=== PATIENT | male | born 1960 | race Caucasian/White ===

== ENCOUNTER 2017-06-04 15:32 | Inpatient (IN) | payer MEDICARE, MEDICAID ==
[~2017-06-04] VITALS: Ht 180.3 cm; Wt 115.7 kg
[~2017-06-04 15:32] MED LIST: ACETAMINOPHEN-1 EAC1 ORAL; ALEVE220 M2 PO; BACTRIM DS TAB1 EAC1 ORAL; IBUPROFEN600 MG ORAL; KEFLEX500 MG ORAL; NEURONTIN100 MG ORAL; TRAMADOL HCL50 MG ORAL
[2017-06-04] MEDS ORDERED: RISPERDAL2 MG ORAL (15:48)
[2017-06-04] MEDS ORDERED: LISINOPRIL40 MG ORAL (15:48)
[2017-06-04] MEDS ORDERED: CITALOPRAM HBR10 M1 ORAL (15:48)
[2017-06-04] MEDS ORDERED: LASIX20 M1 ORAL (15:48)
[2017-06-04] MEDS ORDERED: ADALAT20 MG ORAL (15:48)
[2017-06-04] MEDS ORDERED: JANUVIA25 MG ORAL (15:48)
[2017-06-04] MEDS ORDERED: FOLIC ACID1 MG ORAL (15:48)
--- NOTE | 2017-06-04 16:30 | Emergency Room Report ---
History of Present Illness General Chief Complaint: Skin Rash/Abscess Source: Patient, Medical Record, EMS Present Illness HPI Patient's 56-year-old male brought in by EMS after increased the foot swelling and discomfort. Patient had noticed an area to his foot which had become increasingly swollen and painful. Patient prior history of schizophrenia as well as abscesses in the past. He had been noted to have prior history of just of heart failure. He is also diabetic. Allergies: Coded Allergies: NO KNOWN ALLERGIES (Unverified Allergy, Unknown, 02/08/15) Patient History Past Medical History: see triage record Reviewed Nursing Documentation: PMH: Agreed; PSxH: Agreed Nursing Documentation-PMH Hx Hypertension: Yes Hx Diabetes: Yes Review of Systems All Other Systems: negative except mentioned in HPI Physical Exam Vital Signs Date Time Temp Pulse Resp B/P (MAP) Pulse Ox O2 Delivery O2 Flow Rate FiO2 06/04/17 15:27 97.3 84 18 153/94 97 Room Air 97.3 Sp02 EP Interpretation: reviewed, normal General Appearance: normal inspection, well appearing, no apparent distress, alert, GCS 15 Head: atraumatic ENT: normal ENT inspection, hearing grossly normal, normal voice Neck: normal inspection, full range of motion, supple, no bony tend Respiratory: normal inspection, lungs clear, normal breath sounds, no respiratory distress, no retraction, no wheezing Cardiovascular #1: regular rate, rhythm, no edema Gastrointestinal: normal inspection, normal bowel sounds, non tender, soft, no guarding, no hernia Genitourinary: no CVA tenderness Musculoskeletal: normal inspection, back normal, normal range of motion Neurologic: normal inspection, alert, oriented x3, responsive, shipping lead III-XII nml as tested, speech normal Psychiatric: normal inspection, judgement/insight normal, mood/affect normal Skin: normal inspection, normal color, no rash Medical Decision Making Diagnostic Impression: Primary Impression: Diabetic foot ulcer Additional Impression: CHF (congestive heart failure) ER Course Patient presented for lower extremity pain. Differential diagnosis included but was not limited to fracture, contusion, , vascular insufficiency, aortic aneurysm, cellulitis.Because of complexity of patient's case laboratory testing and imaging studies were ordered. The laboratory testing was unremarkable. Patient was noted to have a ulcer to the plantar aspect of his right foot consistent with a diabetic foot ulcer with infection. Dr. Sergio Felix was contacted for inpatient management. Labs Test 06/04/17 17:00 06/04/17 17:25 06/04/17 17:45 White Blood Count 10.3 K/UL (4.8-10.8) Red Blood Count 4.19 M/UL (4.70-6.10) Hemoglobin 13.0 G/DL (14.2-18.0) Hematocrit 36.4 % (42.0-52.0) Mean Corpuscular Volume 87 FL (80-99) Mean Corpuscular Hemoglobin 31.0 PG (27.0-31.0) Mean Corpuscular Hemoglobin Concent 35.6 G/DL (32.0-36.0) Red Cell Distribution Width 11.3 % (11.6-14.8) Platelet Count 177 K/UL (150-450) Mean Platelet Volume 6.0 FL (6.5-10.1) Neutrophils (%) (Auto) 69.9 % (45.0-75.0) Lymphocytes (%) (Auto) 20.5 % (20.0-45.0) Monocytes (%) (Auto) 6.2 % (1.0-10.0) Eosinophils (%) (Auto) 2.2 % (0.0-3.0) Basophils (%) (Auto) 1.2 % (0.0-2.0) Sodium Level 130 MMOL/L (136-145) Potassium Level 3.6 MMOL/L (3.5-5.1) Chloride Level 93 MMOL/L (98-107) Carbon Dioxide Level 28 MMOL/L (21-32) Anion Gap 9 mmol/L (5-15) Blood Urea Nitrogen 7 mg/dL (7-18) Creatinine 0.8 MG/DL (0.55-1.30) Estimat Glomerular Filtration Rate > 60 mL/min (>60) Glucose Level 149 MG/DL (74-106) Calcium Level 9.1 MG/DL (8.5-10.1) Phosphorus Level 3.3 MG/DL (2.5-4.9) Magnesium Level 1.4 MG/DL (1.8-2.4) Total Bilirubin 0.1 MG/DL (0.2-1.0) Aspartate Amino Transf (AST/SGOT) 12 U/L (15-37) Alanine Aminotransferase (ALT/SGPT) 15 U/L (12-78) Alkaline Phosphatase 76 U/L (46-116) Total Creatine Kinase 182 U/L (26-308) Creatine Kinase MB 1.5 NG/ML (0.0-3.6) Creatine Kinase MB Relative Index 0.8 Troponin I 0.000 ng/mL (0.000-0.056) Total Protein 7.1 G/DL (6.4-8.2) Albumin 3.4 G/DL (3.4-5.0) Globulin 3.7 g/dL Albumin/Globulin Ratio 0.9 (1.0-2.7) Urine Color Pale yellow Urine Appearance Clear Urine pH 7 (4.5-8.0) Urine Specific [place] 1.005 (1.005-1.035) Urine Protein 2+ (NEGATIVE) Urine Glucose (UA) Negative (NEGATIVE) Urine Ketones Negative (NEGATIVE) Urine Occult Blood 2+ (NEGATIVE) Urine Nitrite Negative (NEGATIVE) Urine Bilirubin Negative (NEGATIVE) Urine Urobilinogen Normal MG/DL (0.0-1.0) Urine Leukocyte Esterase Negative (NEGATIVE) Urine RBC 2-4 /HPF (0 - 0) Urine WBC 0-2 /HPF (0 - 0) Urine Squamous Epithelial Cells None /LPF (NONE/OCC) Urine Bacteria Few /HPF (NONE) Lactic Acid Level 2.00 mmol/L (0.66-2.22) EKG Diagnostic Results Rate: normal Rhythm: NSR ST Segments: no acute changes Last Vital Signs Date Time Temp Pulse Resp B/P (MAP) Pulse Ox O2 Delivery O2 Flow Rate FiO2 06/04/17 15:27 97.3 84 18 153/94 97 Room Air 97.3 Status: unchanged Condition: Stable Ascencion Washburn Jun 04, 2017 16:30
--- NOTE | 2017-06-04 16:46 | Diagnostic Imaging Report ---
Indication: Shortness of breath Technique: One view of the chest Comparison: none Findings: Lungs and pleural spaces are clear. Heart size is normal Impression: No acute process
[2017-06-04] MEDS ORDERED: Unasyn 3gm Inj ONE (17:53)
[2017-06-04] MEDS: Ampicillin/Sulbactam Sod 3 GM in NS 110 ML IV SCH ×2 (18:12→22:15)
[2017-06-04 18:15] LABS: BASOPHILS % (AUTO) 1.2 % (0.0-2.0); EOSINOPHILS % (AUTO) 2.2 % (0.0-3.0); HEMATOCRIT 36.4 % (42.0-52.0); LYMPHOCYTES % (AUTO) 20.5 % (20.0-45.0); MEAN CORPUSCULAR VOLUME 87 FL (80-99); MONOCYTES % (AUTO) 6.2 % (1.0-10.0); NEUTROPHILS % (AUTO) 69.9 % (45.0-75.0); PLATELET COUNT 177 K/UL (150-450); RED BLOOD COUNT 4.19 M/UL (4.70-6.10); RED CELL DISTRIBUTION WIDTH 11.3 % (11.6-14.8); WHITE BLOOD COUNT 10.3 K/UL (4.8-10.8)
[2017-06-04 18:17] LABS: APPEARANCE,URINE CLEAR; BILIRUBIN, URINE NEGATIVE (NEGATIVE); COLOR,URINE PALE YELLOW; GLUCOSE, URINE (UA) NEGATIVE (NEGATIVE); KETONES,URINE NEGATIVE (NEGATIVE); LEUKOCYTE ESTERASE ,URINE NEGATIVE (NEGATIVE); NITRITE,URINE NEGATIVE (NEGATIVE); PH,URINE 7 (4.5-8.0); PROTEIN,URINE 2+ (NEGATIVE); UROBILINOGEN,URINE NORMAL MG/DL (0.0-1.0)
[2017-06-04 18:22] LABS: ANION GAP 9 mmol/L (5-15); BLOOD UREA NITROGEN 7 mg/dL (7-18); CALCIUM 9.1 MG/DL (8.5-10.1); CARBON DIOXIDE 28 MMOL/L (21-32); CHLORIDE 93 MMOL/L (98-107); CREATININE 0.8 MG/DL (0.55-1.30); POTASSIUM 3.6 MMOL/L (3.5-5.1); SODIUM 130 MMOL/L (136-145)
[2017-06-04 18:35] LABS: ALANINE AMINOTRANSFERASE 15 U/L (12-78); ALBUMIN 3.4 G/DL (3.4-5.0); ALBUMIN/GLOBULIN RATIO 0.9 (1.0-2.7); ALKALINE PHOSPHATASE 76 U/L (46-116); ASPARTATE AMINO TRANSFERASE 12 U/L (15-37); BILIRUBIN,TOTAL 0.1 MG/DL (0.2-1.0); CKMB 1.5 NG/ML (0.0-3.6); CREATINE KINASE 182 U/L (26-308); PHOSPHORUS 3.3 MG/DL (2.5-4.9)
[2017-06-04] MEDS ORDERED: ATORVASTATIN CA20 MG (18:46)
[2017-06-04] MEDS ORDERED: METFORMIN HCL1000 M1 (18:46)
[2017-06-04] MEDS ORDERED: DIVALPROEX SOD250 MG (18:46)
[2017-06-04] MEDS ORDERED: RISPERIDONE3 MG (18:46)
[2017-06-04] MEDS ORDERED: NIFEDIPINE ER60 M3 (18:46)
[2017-06-04] MEDS ORDERED: GABAPENTIN300 MG (18:46)
[2017-06-04] MEDS ORDERED: JANUVIA100 MG (18:46)
[2017-06-04] MEDS ORDERED: TYLENOL EXTRA500 MG ORAL (18:54)
[2017-06-04 20:40] VITALS: BP 152/84
[2017-06-04 21:35] VITALS: BP 148/94
[2017-06-04] MEDS ORDERED: Acetaminophen 500mg (ES) tab ORAL SCH (22:45)
[2017-06-04] MEDS: Morphine Sulfate 4mg/ml Inj IVP PRN (23:39)
[2017-06-05] MEDS: D5NS 1,000 ML IV SCH ×2 (01:17→17:05)
[2017-06-05 04:00] VITALS: BP 136/80
[2017-06-05] MEDS: Ampicillin/Sulbactam Sod 3 GM in NS 110 ML IV SCH ×2 (04:15→10:41)
[2017-06-05] MEDS: NovoLOG Insulin Flexpen SUBQ SCH ×4 (06:44→20:46)
[2017-06-05 08:00] VITALS: BP 145/107
[2017-06-05 08:01] LABS: EOSINOPHILS % (AUTO) 3.3 % (0.0-3.0); HEMATOCRIT 37.9 % (42.0-52.0); HEMOGLOBIN 13.1 G/DL (14.2-18.0); LYMPHOCYTES % (AUTO) 27.5 % (20.0-45.0); MEAN CORPUSCULAR VOLUME 87 FL (80-99); MONOCYTES % (AUTO) 7.3 % (1.0-10.0); NEUTROPHILS % (AUTO) 60.9 % (45.0-75.0); PLATELET COUNT 271 K/UL (150-450); RED BLOOD COUNT 4.35 M/UL (4.70-6.10); RED CELL DISTRIBUTION WIDTH 11.5 % (11.6-14.8); WHITE BLOOD COUNT 9.1 K/UL (4.8-10.8)
[2017-06-05] MEDS: metFORMIN 500mg tab ORAL SCH ×2 (08:32→17:05)
[2017-06-05] MEDS: Lisinopril 20mg tab ORAL SCH (08:33)
[2017-06-05] MEDS: Heparin 5000 units/ml inj SUBQ SCH ×2 (08:35→20:45)
--- NOTE | 2017-06-05 08:45 | Consultation ---
DATE OF CONSULTATION: 06/05/2017 INITIAL PSYCHIATRIC EVALUATION CONSULTING PHYSICIAN: Cyndi Mcghee M.D. HISTORY OF PRESENT ILLNESS: The patient is a 56-year-old male patient admitted to [facility] secondary to diabetic foot, but I think the patient has a diagnosis of schizoaffective, bipolar type and he agreed to be restarted on his psychotropic medications and he has altered mental status and cognition has declined below baseline secondary to stress of his medical illness. That is why, his attending physician has requested daily psychiatric consultation for this patient. Upon assessment at that time, he is very confused, disorganized. His mood lability has worsened secondary to stress from his medical illness. SOCIAL HISTORY: The patient is living in a facility. Financially supported by [employer] and Medicare. SUBSTANCE ABUSE HISTORY: Denies drug and alcohol use. ALLERGIES: No known drug allergies. MEDICAL HISTORY: Schizoaffective, bipolar type, multiple psychiatric admissions. FAMILY PSYCHIATRIC HISTORY: Denies. STRENGTHS: He is moderately better. WEAKNESSES: He is impulsive. MENTAL STATUS EXAMINATION: The patient is a 56-year-old male. Appearance is disheveled. Attitude is irritable and agitated. Affect is guarded and restricted. Intellect is poor. Mood is depressed and anxious. Motor activity, psychomotor agitation. Attention span is poor. Orientation x2. Speech is pressured. Thought process is disorganized. Thought content, auditory hallucinations and paranoid delusions. Insight and judgment is poor. is poor. Description of delusions, delusions that people are following him. DIAGNOSES: 1. Schizoaffective, bipolar type. 2. Medical problems include diabetes. 3. Psychosocial stresses is financial. PLAN: Treat the patient with 10 mg daily, Depakote 250 mg at bedtime, Neurontin 300 mg a day, and Risperdal 1 mg twice a day. Provide 20 minutes of supportive therapy and encouraged him to interact appropriately with staff and other patients. Chart was reviewed and discussed with staff. The patient was seen and assessed in his room. I would like to thank you for this interesting consultation. Cyndi Mcghee M.D. [facility] [employer] JOB#: [id number] CC:
[2017-06-05] MEDS: Morphine Sulfate 4mg/ml Inj IVP PRN ×3 (08:46→20:42)
[2017-06-05] MEDS ORDERED: Citalopram 20mg Tab ORAL SCH (09:00)
[2017-06-05 09:13] LABS: ANION GAP 6 mmol/L (5-15); BLOOD UREA NITROGEN 7 mg/dL (7-18); CALCIUM 9.1 MG/DL (8.5-10.1); CARBON DIOXIDE 32 MMOL/L (21-32); CHLORIDE 98 MMOL/L (98-107); CREATININE 0.8 MG/DL (0.55-1.30); POTASSIUM 3.5 MMOL/L (3.5-5.1); SODIUM 136 MMOL/L (136-145)
[2017-06-05 12:00] VITALS: BP 137/85
--- NOTE | 2017-06-05 12:39 | Consultation ---
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 Procedure was dictated 2) D/W ID, abx per ID 3) CRP, ESR, X-ray right foot 4) Wound care ordered 5) Will follow Thank you Lorne Vincent DPM Jun 05, 2017 12:39
--- NOTE | 2017-06-05 12:57 | Consultation ---
Consult Note Consult Note ID # [id number] Kt Zavaleta MD Jun 05, 2017 12:57
[2017-06-05] MEDS: cefTRIAXone 2 GM in D5W 55 ML IVPB SCH (15:16)
--- NOTE | 2017-06-05 15:19 | Cardiac Electrophysiology PN ---
Subjective Subjective [id number] Objective Last 24 Hour Vital Signs Date Time Temp Pulse Resp B/P (MAP) Pulse Ox O2 Delivery O2 Flow Rate FiO2 06/05/17 08:33 145/107 06/05/17 08:31 93 145/107 06/05/17 08:00 97.0 93 22 145/107 98 Room Air 97.0 06/05/17 04:27 94 06/05/17 04:00 98.4 80 20 136/80 95 Room Air 98.4 06/04/17 23:47 84 06/04/17 21:35 98.4 92 20 148/94 94 Room Air 98.4 06/04/17 20:40 97.7 75 14 152/84 99 Room Air 06/04/17 20:40 97.7 75 14 152/84 99 Room Air 97.7 06/04/17 15:27 97.3 84 18 153/94 97 Room Air 97.3 Intake and Output 06/04/17 06/05/17 19:00 07:00 Intake Total 1300 ml Output Total 825 ml Balance 475 ml Intake Oral 1000 ml IV Total 300 ml Output Urine Total 825 ml # Voids 1 Laboratory Tests Test 06/04/17 17:00 06/04/17 17:25 06/04/17 17:45 06/05/17 06:30 White Blood Count 10.3 K/UL (4.8-10.8) 9.1 K/UL (4.8-10.8) Red Blood Count 4.19 M/UL (4.70-6.10) L 4.35 M/UL (4.70-6.10) L Hemoglobin 13.0 G/DL (14.2-18.0) L 13.1 G/DL (14.2-18.0) L Hematocrit 36.4 % (42.0-52.0) L 37.9 % (42.0-52.0) L Mean Corpuscular Volume 87 FL (80-99) 87 FL (80-99) Mean Corpuscular Hemoglobin 31.0 PG (27.0-31.0) 30.0 PG (27.0-31.0) Mean Corpuscular Hemoglobin Concent 35.6 G/DL (32.0-36.0) 34.4 G/DL (32.0-36.0) Red Cell Distribution Width 11.3 % (11.6-14.8) L 11.5 % (11.6-14.8) L Platelet Count 177 K/UL (150-450) 271 K/UL (150-450) # Mean Platelet Volume 6.0 FL (6.5-10.1) L 5.8 FL (6.5-10.1) L Neutrophils (%) (Auto) 69.9 % (45.0-75.0) 60.9 % (45.0-75.0) Lymphocytes (%) (Auto) 20.5 % (20.0-45.0) 27.5 % (20.0-45.0) Monocytes (%) (Auto) 6.2 % (1.0-10.0) 7.3 % (1.0-10.0) Eosinophils (%) (Auto) 2.2 % (0.0-3.0) 3.3 % (0.0-3.0) H Basophils (%) (Auto) 1.2 % (0.0-2.0) 1.0 % (0.0-2.0) Sodium Level 130 MMOL/L (136-145) L 136 MMOL/L (136-145) Potassium Level 3.6 MMOL/L (3.5-5.1) 3.5 MMOL/L (3.5-5.1) Chloride Level 93 MMOL/L (98-107) L 98 MMOL/L (98-107) Carbon Dioxide Level 28 MMOL/L (21-32) 32 MMOL/L (21-32) Anion Gap 9 mmol/L (5-15) 6 mmol/L (5-15) Blood Urea Nitrogen 7 mg/dL (7-18) 7 mg/dL (7-18) Creatinine 0.8 MG/DL (0.55-1.30) 0.8 MG/DL (0.55-1.30) Estimat Glomerular Filtration Rate > 60 mL/min (>60) > 60 mL/min (>60) Glucose Level 149 MG/DL (74-106) H 162 MG/DL (74-106) H Calcium Level 9.1 MG/DL (8.5-10.1) 9.1 MG/DL (8.5-10.1) Phosphorus Level 3.3 MG/DL (2.5-4.9) Magnesium Level 1.4 MG/DL (1.8-2.4) L Total Bilirubin 0.1 MG/DL (0.2-1.0) L Aspartate Amino Transf (AST/SGOT) 12 U/L (15-37) L Alanine Aminotransferase (ALT/SGPT) 15 U/L (12-78) Alkaline Phosphatase 76 U/L (46-116) Total Creatine Kinase 182 U/L (26-308) Creatine Kinase MB 1.5 NG/ML (0.0-3.6) Creatine Kinase MB Relative Index 0.8 Troponin I 0.000 ng/mL (0.000-0.056) Total Protein 7.1 G/DL (6.4-8.2) Albumin 3.4 G/DL (3.4-5.0) Globulin 3.7 g/dL Albumin/Globulin Ratio 0.9 (1.0-2.7) L Urine Color Pale yellow Urine Appearance Clear Urine pH 7 (4.5-8.0) Urine Specific [place] 1.005 (1.005-1.035) Urine Protein 2+ (NEGATIVE) H Urine Glucose (UA) Negative (NEGATIVE) Urine Ketones Negative (NEGATIVE) Urine Occult Blood 2+ (NEGATIVE) H Urine Nitrite Negative (NEGATIVE) Urine Bilirubin Negative (NEGATIVE) Urine Urobilinogen Normal MG/DL (0.0-1.0) Urine Leukocyte Esterase Negative (NEGATIVE) Urine RBC 2-4 /HPF (0 - 0) H Urine WBC 0-2 /HPF (0 - 0) Urine Squamous Epithelial Cells None /LPF (NONE/OCC) Urine Bacteria Few /HPF (NONE) Lactic Acid Level 2.00 mmol/L (0.66-2.22) Erythrocyte Sedimentation Rate 22 MM/HR (0-20) H C-Reactive Protein, Quantitative 3.6 mg/dL (0.00-0.90) H Microbiology Date/Time Source Procedure Growth Status 06/04/17 16:40 Foot Right Gram Stain Pending Resulted 06/04/17 16:40 Wound Culture - Preliminary Staphylococcus Aureus Resulted Keshawn Mejia MD Jun 05, 2017 15:19
--- NOTE | 2017-06-05 15:41 | Diagnostic Imaging Report ---
Indication: Pain Comparison: None Findings: 3 views of the right foot were obtained. Bulge osteopenic. Hammertoe deformities are present. No fracture or malalignment identified. Soft tissues are unremarkable. IMPRESSION: No acute injury
[2017-06-05 16:00] VITALS: BP 112/62
--- NOTE | 2017-06-05 16:36 | Cardiology Report ---
APPROVED REPORT EKG Measurement Heart [id number] [id number] Normal sinus rhythm Cannot rule out Anterior infarct, age undetermined Abnormal ECG
--- NOTE | 2017-06-05 17:45 | History and Physical Report ---
DATE OF ADMISSION: 06/04/2017 TIME: 2 p.m. INTERVENTIONAL TECHNOLOGIST: 1. Kt Zavaleta M.D. 2. Lorne Rodrigues D.P.M. 3. Cyndi Mcghee M.D.. 4. Jeffrey Hurtado M.D. CHIEF COMPLAINT: Right foot wound getting worse, edema, hyponatremia, confusion. BRIEF HISTORY: The patient is a 56-year-old male from [facility] presents with right foot plantar wound getting worse, swollen. The patient was getting weak and lethargic. The patient was sent to [place], diagnosed with the above, admitted to medical telemetry for further care. Currently, calm in bed. No complaint. No chest pain. No shortness of breath. No nausea, vomiting, or diarrhea. PAST MEDICAL HISTORY: Right foot wound, diabetes, CHF, schizophrenia, hypertension. PAST SURGICAL HISTORY: Right knee. MEDICATIONS: Include ceftriaxone, atorvastatin, Celexa, Depakote, Colace, Lasix, Neurontin, Prinivil, Glucophage, Procardia. ALLERGIES: Denies. SOCIAL HISTORY: Positive smoking. Positive alcohol. No intravenous drug use. FAMILY HISTORY: Noncontributory. PHYSICAL EXAMINATION: GENERAL: Calm in bed, oriented x2, in no acute distress. VITAL SIGNS: Temperature 97, pulse 93, respiratory rate 22, blood pressure 145/107. CARDIOVASCULAR: No murmur. LUNGS: Poor exchange. ABDOMEN: Bowel sounds positive. Nontender. Nondistended. EXTREMITIES: No cyanosis, clubbing, 1+ edema on right foot , foot dressing clean and dry. NEUROLOGIC: The patient moves all extremities, slightly weak. LABORATORY AND DIAGNOSTIC DATA: Hemoglobin 13, otherwise CBC is normal. BMP shows glucose 162, otherwise BMP is normal. Urinalysis show 2+ occult blood, 2+ protein, otherwise normal. ASSESSMENT: 1. Right foot plantar wound edema. 2. Diabetes. 3. CHF. 4. Schizophrenia. 5. Hypertension. PLAN: 1. Continue premedications. 2. Wound care. 3. OT/PT. 4. Dietary evaluation. 5. CBC and BMP in the morning. 6. Antibiotics as ordered. 7. Pain control. 8. Blood pressure control. 9. We will continue to follow the patient. Sergio Felix D.O. DR: Daysi JOB#: [id number] CC:
--- NOTE | 2017-06-05 19:15 | Consultation ---
DATE OF CONSULTATION: 06/05/2017 CARDIOLOGY CONSULTATION CONSULTING PHYSICIAN: Keshawn Mejia M.D. REFERRING PHYSICIAN: Sergio Felix D.O. REASON FOR CONSULTATION: Management of hypertension and preoperative clearance. HISTORY OF PRESENT ILLNESS: The patient is a 56-year-old gentleman with history of hypertension, diabetes, and hyperlipidemia, who was admitted to the hospital for cellulitis of the right foot and diabetic foot ulcer. 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 The patient also has limb-length discrepancy with the right leg shorter secondary to above. The patient was admitted to the hospital for diabetic foot infection. Cardiology consultation was obtained for further evaluation and management. REVIEW OF SYSTEMS: Performed and was negative other than what was mentioned in history of present illness. PAST MEDICAL HISTORY: 1. Hypertension. 2. Diabetes. 3. Diabetic foot ulcer. 4. Bipolar schizoaffective disorder. ALLERGIES: He has no known drug allergies. FAMILY HISTORY: Noncontributory. SOCIAL HISTORY: He lives in assisted living. Does not smoke or drink alcohol. He is financially supported by [employer]. PHYSICAL EXAMINATION: VITAL SIGNS: Show blood pressure 145/107, pulse 93, respirations 18, and he is afebrile. HEAD AND NECK: Showed no JVD. LUNGS: Clear. CARDIOVASCULAR: Shows regular S1 and S2 with no gallop or murmur. ABDOMEN: Soft. EXTREMITIES: Status post surgery on the right knee and right foot cellulitis. LABORATORY DATA: His labs show white count of 9.1, hemoglobin 13.1, hematocrit 38, and platelet count of 271,000. Sodium 133, potassium 3.5, BUN 7, creatinine of 0.8, and glucose 162. Troponin is negative. ASSESSMENT AND PLAN: 1. Accelerated hypertension. This is despite the fact he is on Lasix 20 mg daily, lisinopril 40 mg daily, and Procardia XL 60 mg daily. I would increase the Lasix to 40 mg daily and increase Procardia XL to 90 mg daily. Add p.r.n. clonidine. 2. Hyperlipidemia, on Lipitor. 3. Diabetes, on metformin and insulin. 4. Diabetic foot ulcer, on IV antibiotics. Further evaluation by Dr. Rodrigues. Thank you very much, Dr. Felix, for allowing me to participate in the care of this patient. Please do not hesitate to contact me for any questions regarding my evaluation. Keshawn Mejia M.D. DR: Marni JOB#: [id number] CC:
[2017-06-05 20:00] VITALS: BP 121/67
--- NOTE | 2017-06-05 20:30 | Consultation ---
DATE OF CONSULTATION: 06/05/2017 INFECTIOUS DISEASES CONSULTATION CONSULTING PHYSICIAN: Kt Zavaleta M.D. REQUESTING PHYSICIAN: Sergio Felix D.O. REASON FOR CONSULTATION: Evaluation of the patient for possible sepsis. HISTORY OF PRESENT ILLNESS: The patient is a 56-year-old male with multiple medical problems as listed below, who was brought from home to this medical center for altered level of consciousness. The patient has regained his mental status overnight. At the time of admission, the patient had white count of 10. The patient was afebrile. Infectious Diseases consultation has been requested for evaluation of patient for possible underlying sepsis that is contributing the patient's altered level of consciousness. PAST MEDICAL HISTORY: 1. History of CVA. 2. Hyperlipidemia. 3. Diabetes. ALLERGIES: No known drug allergies. SOCIAL HISTORY: The patient lives at home. FAMILY HISTORY: Unavailable. REVIEW OF SYSTEMS: HEENT: No recent change in vision or hearing. PULMONARY: The patient has chronic occasional cough. CARDIOVASCULAR: No chest pain or palpitations. GASTROINTESTINAL/ABDOMEN: No nausea or vomiting. GENITOURINARY: No dysuria. NEUROLOGIC: As mentioned above. PHYSICAL EXAMINATION: VITAL SIGNS: Temperature 98 degrees, pulse 86, respiratory rate 18, and blood pressure . HEENT: No pale conjunctivae. No icterus. NECK: No lymphadenopathy. CHEST: Clear. HEART: S1 and S2. ABDOMEN: Soft. NEUROLOGIC: Awake and alert. LABORATORY AND DIAGNOSTIC DATA: White blood cells 9.1, hemoglobin 13, and platelets 271. UA unremarkable. BUN 7 and creatinine 0.8. Liver function tests are unremarkable. Chest x-ray, [facility]. ASSESSMENT: The patient is a 56-year-old male with multiple medical problems as listed above, who came with: 1. Altered level of consciousness. 2. Normal white blood cells. 3. Afebrile. 4. By history and physical exam, there are no signs of infection that may contribute to patient's presentation. PLAN: 1. Monitor the patient off of antibiotics. 2. Monitor cultures (blood). 3. Monitor chest x-ray. 4. Monitor the patient for pertinent laboratories. 5. Based on those, we may do further recommendation. Thank you for this consultation. I will follow the patient with you during this hospitalization. Kt Zavaleta M.D. DR: Ava JOB#: [id number] CC:
[2017-06-06] VITALS: BP 117/73
[2017-06-06 04:00] VITALS: BP 122/72
[2017-06-06] MEDS: NovoLOG Insulin Flexpen SUBQ SCH ×4 (06:04→21:15)
[2017-06-06] MEDS: Morphine Sulfate 4mg/ml Inj IVP PRN ×4 (06:33→23:04)
[2017-06-06 08:00] VITALS: BP 130/72
[2017-06-06] MEDS: Lisinopril 20mg tab ORAL SCH (08:58)
[2017-06-06] MEDS: metFORMIN 500mg tab ORAL SCH ×2 (08:59→17:26)
[2017-06-06] MEDS: Heparin 5000 units/ml inj SUBQ SCH ×2 (09:02→21:17)
[2017-06-06 09:07] LABS: BASOPHILS % (AUTO) 0.7 % (0.0-2.0); EOSINOPHILS % (AUTO) 3.4 % (0.0-3.0); HEMATOCRIT 38.1 % (42.0-52.0); HEMOGLOBIN 12.9 G/DL (14.2-18.0); MEAN CORPUSCULAR VOLUME 89 FL (80-99); NEUTROPHILS % (AUTO) 67.9 % (45.0-75.0); PLATELET COUNT 297 K/UL (150-450); RED BLOOD COUNT 4.29 M/UL (4.70-6.10); RED CELL DISTRIBUTION WIDTH 11.5 % (11.6-14.8); WHITE BLOOD COUNT 10.4 K/UL (4.8-10.8)
[2017-06-06] MEDS: Dakin's 0.125% Soln (Quarter Strength) 16oz TOPIC SCH (09:16)
[2017-06-06] MEDS: Citalopram Hydrobromide 10mg Tab ORAL SCH (09:17)
[2017-06-06 09:32] LABS: ANION GAP 6 mmol/L (5-15); BLOOD UREA NITROGEN 7 mg/dL (7-18); CALCIUM 8.6 MG/DL (8.5-10.1); CARBON DIOXIDE 31 MMOL/L (21-32); CHLORIDE 98 MMOL/L (98-107); CHOLESTEROL 205 MG/DL (< 200); CREATININE 0.7 MG/DL (0.55-1.30); HDL CHOLESTEROL 37 MG/DL (40-60); POTASSIUM 3.4 MMOL/L (3.5-5.1); SODIUM 135 MMOL/L (136-145); TRIGLYCERIDES 157 MG/DL (30-150)
[2017-06-06] MEDS: D5NS 1,000 ML IV SCH (09:58)
--- NOTE | 2017-06-06 10:08 | Infectious Diseases Prog Note ---
Assessment/Plan Assessment/Plan ASSESSMENT: The patient is a 56-year-old male with Right foot plantar wound edema Wnd Cx : Staph A SP I/D by Pod , : clinically no evid of osteo as per Od Diabetes CHF Schizophrenia Hypertension PLAN: cont pt on IV Vanco and rocephin d# , upon DC will change to ( Bactrim and Keflex ) to complete the course Monitor cultures (Wnd ) Monitor chest x-ray Subjective Constitutional: Denies: no symptoms, fever, chills, fatigue, anorexia, drenching sweats, other Allergies: Coded Allergies: NO KNOWN ALLERGIES (Unverified Allergy, Unknown, 02/08/15) Objective Vital Signs Last 24 Hour Vital Signs Date Time Temp Pulse Resp B/P (MAP) Pulse Ox O2 Delivery O2 Flow Rate FiO2 06/06/17 09:00 76 130/72 06/06/17 08:58 130/72 06/06/17 08:00 97.8 76 18 130/72 97 97.8 06/06/17 04:00 70 06/06/17 04:00 97.3 87 18 122/72 97 97.3 06/06/17 00:00 97.7 78 18 117/73 94 97.7 06/05/17 23:27 71 06/05/17 20:00 98.4 82 18 121/67 94 98.4 06/05/17 19:38 97 06/05/17 16:25 79 06/05/17 16:00 98.1 80 20 112/62 95 Room Air 98.1 06/05/17 15:33 79 06/05/17 12:00 97.0 77 20 137/85 98 Room Air 97.0 Height (Feet): 5 Height (Inches): 11.00 Weight (Pounds): 250 HEENT: anicteric Respiratory/Chest: respiratory distress Cardiovascular: regular rhythm Abdomen: soft, non tender Microbiology Date/Time Source Procedure Growth Status 06/04/17 17:15 Blood Blood Culture - Preliminary NO GROWTH AFTER 24 HOURS Resulted 06/04/17 17:00 Blood Blood Culture - Preliminary NO GROWTH AFTER 24 HOURS Resulted 06/04/17 16:40 Foot Right Gram Stain - Final Resulted 06/04/17 16:40 Wound Culture - Preliminary Staphylococcus Aureus Resulted Laboratory Tests Test 06/06/17 07:00 White Blood Count 10.4 K/UL (4.8-10.8) Red Blood Count 4.29 M/UL (4.70-6.10) L Hemoglobin 12.9 G/DL (14.2-18.0) L Hematocrit 38.1 % (42.0-52.0) L Mean Corpuscular Volume 89 FL (80-99) Mean Corpuscular Hemoglobin 30.0 PG (27.0-31.0) Mean Corpuscular Hemoglobin Concent 33.8 G/DL (32.0-36.0) Red Cell Distribution Width 11.5 % (11.6-14.8) L Platelet Count 297 K/UL (150-450) Mean Platelet Volume 6.1 FL (6.5-10.1) L Neutrophils (%) (Auto) 67.9 % (45.0-75.0) Lymphocytes (%) (Auto) 21.0 % (20.0-45.0) Monocytes (%) (Auto) 7.0 % (1.0-10.0) Eosinophils (%) (Auto) 3.4 % (0.0-3.0) H Basophils (%) (Auto) 0.7 % (0.0-2.0) Sodium Level 135 MMOL/L (136-145) L Potassium Level 3.4 MMOL/L (3.5-5.1) L Chloride Level 98 MMOL/L (98-107) Carbon Dioxide Level 31 MMOL/L (21-32) Anion Gap 6 mmol/L (5-15) Blood Urea Nitrogen 7 mg/dL (7-18) Creatinine 0.7 MG/DL (0.55-1.30) Estimat Glomerular Filtration Rate > 60 mL/min (>60) Glucose Level 161 MG/DL (74-106) H Calcium Level 8.6 MG/DL (8.5-10.1) Pro-B-Type Natriuretic Peptide Pending Triglycerides Level 157 MG/DL (30-150) H Cholesterol Level 205 MG/DL (< 200) H LDL Cholesterol 133 mg/dL (<100) H HDL Cholesterol 37 MG/DL (40-60) L Cholesterol/HDL Ratio 5.5 (3.3-4.4) H Current Medications Medications (Trade) Dose Ordered Sig/Azar Route PRN Reason Start Time Stop Time Status Last Admin Dose Admin Acetaminophen (Tylenol) 650 mg Q8H PRN ORAL Fever/Headache/Mild Pain 06/05/17 01:15 07/05/17 00:00 Atorvastatin Calcium (Lipitor) 20 mg DAILY ORAL 06/05/17 09:00 07/05/17 08:59 06/06/17 08:59 Ceftriaxone Sodium 2 gm/ Dextrose 55 ml @ 110 mls/hr Q24H IVPB 06/05/17 15:00 06/12/17 14:59 06/05/17 15:16 Citalopram Hydrobromide (celeXA) 10 mg DAILY ORAL 06/06/17 10:00 07/05/17 08:59 06/06/17 09:17 Clonidine HCl (Catapres Tab) 0.1 mg Q2H PRN ORAL SBP > 170 06/05/17 15:30 07/05/17 15:29 Dextrose (Dextrose 50%) 25 ml STAT PRN IV HYPOGLYCEMIA 06/05/17 08:30 07/05/17 08:29 Dextrose (Dextrose 50%) 50 ml STAT PRN IV Hypoglycemia 06/05/17 08:30 07/05/17 00:00 Dextrose/Sodium Chloride 1,000 ml @ 60 mls/hr [id number] IV 06/05/17 01:00 07/05/17 00:59 06/06/17 09:58 Divalproex Sodium (Depakote) 250 mg DAILY ORAL 06/05/17 09:00 07/05/17 08:59 06/06/17 08:59 Folic Acid (Folate) 1 mg DAILY ORAL 06/05/17 09:00 07/05/17 08:59 06/06/17 08:59 Furosemide (Lasix) 40 mg DAILY ORAL 06/06/17 09:00 07/05/17 08:59 06/06/17 09:00 Gabapentin (Neurontin) 300 mg TID ORAL 06/05/17 09:00 07/05/17 08:59 06/06/17 08:58 Heparin Sodium (Porcine) (Heparin 5000 units/ml) 5,000 units EVERY 12 HOURS SUBQ 06/05/17 09:00 07/05/17 08:59 06/06/17 09:02 Insulin Aspart (NovoLOG) BEFORE MEALS AND HS SUBQ 06/05/17 06:30 07/05/17 06:29 06/06/17 06:04 Lisinopril (Prinivil) 40 mg DAILY ORAL 06/05/17 09:00 07/05/17 08:59 06/06/17 08:58 Metformin HCl (Glucophage) 1,000 mg BID ORAL 06/05/17 09:00 07/05/17 08:59 06/06/17 08:59 Morphine Sulfate (Morphine Sulfate) 2 mg Q4H PRN IVP for pain 06/04/17 23:15 06/11/17 23:14 06/06/17 06:33 Nifedipine (Procardia XL) 90 mg DAILY ORAL 06/06/17 09:00 07/05/17 08:59 06/06/17 09:00 Sitagliptin Phosphate (Januvia) 100 mg DAILY ORAL 06/05/17 09:00 07/05/17 08:59 06/06/17 08:58 Sodium Hypochlorite (Dakin's Quarter Strength) 1 applic DAILY TOPIC 06/06/17 09:00 07/06/17 08:59 06/06/17 09:16 Kt Zavaleta MD Jun 06, 2017 10:08
[2017-06-06] MEDS: Vancomycin 1.5 GM/D5W 250ML IVPB SCH ×2 (11:04→23:04)
[2017-06-06 12:00] VITALS: BP 139/85
--- NOTE | 2017-06-06 12:55 | General Progress Note ---
Assessment/Plan Problem List: (1) Skin abscess ICD Codes: L02.91 - Cutaneous abscess, unspecified SNOMED: 24372711 (2) Diabetic foot ulcer ICD Codes: E11.621 - Type 2 diabetes mellitus with foot ulcer; L97.509 - Non- pressure chronic ulcer of other part of unspecified foot with unspecified severity SNOMED: 433470499, 02694408 (3) Cellulitis ICD Codes: L03.90 - Cellulitis, unspecified SNOMED: 807225640 (4) CHF (congestive heart failure) ICD Codes: I50.9 - Heart failure, unspecified SNOMED: 47594568, 04369187 (5) Chronic pain ICD Codes: G89.29 - Other chronic pain SNOMED: 33539492 Status: unchanged Assessment/Plan ot pt diet wound care abx cbc bmp am Subjective Constitutional: Reports: weakness Allergies: Coded Allergies: NO KNOWN ALLERGIES (Unverified Allergy, Unknown, 02/08/15) All Systems: reviewed and negative except above Subjective sleepy calm Objective Last 24 Hour Vital Signs Date Time Temp Pulse Resp B/P (MAP) Pulse Ox O2 Delivery O2 Flow Rate FiO2 06/06/17 12:00 97.9 70 20 139/85 95 Room Air 97.9 06/06/17 12:00 81 06/06/17 09:00 76 130/72 06/06/17 08:58 130/72 06/06/17 08:00 82 06/06/17 08:00 97.8 76 18 130/72 97 97.8 06/06/17 04:00 70 06/06/17 04:00 97.3 87 18 122/72 97 97.3 06/06/17 00:00 97.7 78 18 117/73 94 97.7 06/05/17 23:27 71 06/05/17 20:00 98.4 82 18 121/67 94 98.4 06/05/17 19:38 97 06/05/17 16:25 79 06/05/17 16:00 98.1 80 20 112/62 95 Room Air 98.1 06/05/17 15:33 79 Intake and Output 06/05/17 06/06/17 19:00 07:00 Intake Total 320 ml 1600 ml Output Total 1600 ml 4000 ml Balance -1280 ml -2400 ml Intake Oral 260 ml 1600 ml IV Total 60 ml Output Urine Total 1600 ml 4000 ml Laboratory Tests 06/06/17 07:00: White Blood Count 10.4, Red Blood Count 4.29L, Hemoglobin 12.9L, Hematocrit 38.1L, Mean Corpuscular Volume 89, Mean Corpuscular Hemoglobin 30.0, Mean Corpuscular Hemoglobin Concent 33.8, Red Cell Distribution Width 11.5L, Platelet Count 297, Mean Platelet Volume 6.1L, Neutrophils (%) (Auto) 67.9, Lymphocytes (%) (Auto) 21.0, Monocytes (%) (Auto) 7.0, Eosinophils (%) (Auto) 3.4H, Basophils (%) (Auto) 0.7, Sodium Level 135L, Potassium Level 3.4L, Chloride Level 98, Carbon Dioxide Level 31, Anion Gap 6, Blood Urea Nitrogen 7, Creatinine 0.7, Estimat Glomerular Filtration Rate > 60, Glucose Level 161H, Calcium Level 8.6, Pro-B-Type Natriuretic Peptide 66, Triglycerides Level 157H, Cholesterol Level 205H, LDL Cholesterol 133H, HDL Cholesterol 37L, Cholesterol/ HDL Ratio 5.5H Height (Feet): 5 Height (Inches): 11.00 Weight (Pounds): 250 General Appearance: lethargic EENT: normal ENT inspection Neck: normal alignment Cardiovascular: normal peripheral pulses, normal rate, regular rhythm Respiratory/Chest: chest wall non-tender, lungs clear, normal breath sounds Abdomen: normal bowel sounds, non tender, soft Extremities: normal inspection Edema: no edema noted Arm (L), no edema noted Arm (R), no edema noted Leg (L), no edema noted Leg (R), no edema noted Pedal (L), no edema noted Pedal (R), no edema noted Generalized Neurologic: motor weakness Skin: normal pigmentation, warm/dry ROXANA MUSE Jun 06, 2017 12:55
--- NOTE | 2017-06-06 13:00 | Consultation ---
DATE OF CONSULTATION: 06/05/2017 INFECTIOUS DISEASE CONSULTATION CONSULTING PHYSICIAN: Kt Zavaleta M.D REFERRING PHYSICIAN: Sergio Felix D.O. REASON FOR CONSULTATION: Evaluation of the patient for right foot wound infection and antibiotic management. HISTORY OF PRESENT ILLNESS: The patient is a 56-year-old male with multiple medical problems as listed below, who came to the hospital with right foot wound with increase of erythema and tenderness. The patient was admitted to this medical center with right foot wound infection and cellulitis. Infectious Disease consultation has been requested for further evaluation of the patient and antibiotic management. PAST MEDICAL HISTORY: 1. Diabetes. 2. Hypertension. 3. History of pacemaker placement. 4. Hyperlipidemia. MEDICATIONS: IV Rocephin. ALLERGIES: No known drug allergies. SOCIAL HISTORY: Negative for alcohol or drug abuse. FAMILY HISTORY: Not contributing. REVIEW OF SYSTEMS: Ten-point review was done, except what was mentioned has been negative. PHYSICAL EXAMINATION: VITAL SIGNS: Temperature 97.8, blood pressure 130/70, pulse 86, and respiratory rate 18. HEENT: No pale conjunctivae. No icterus. NECK: No lymphadenopathy. CHEST: Clear. HEART: S1 and S2. ABDOMEN: Soft. EXTREMITY: The patient has a wound on the right dorsum of the foot. No purulent discharge. Mild erythema surrounding that and some erythema under with tenderness. NEUROLOGIC: Awake and alert. LABORATORY AND DIAGNOSTIC DATA: White blood cells 9, hemoglobin 13, and platelets 271. UA is unremarkable. BUN and creatinine are unremarkable. Blood culture and wound cultures are pending. Chest x-ray, [facility]. ASSESSMENT: The patient is a 56-year-old male with, 1. Right foot ulcer, status post incision and drainage by childcare administrator. According to him, no evidence of extension or infection to the bone and appears to be superficial wound infection. 2. Afebrile. 3. Normal white blood cells. PLAN: 1. We will continue the patient on IV Rocephin and vancomycin. 2. Monitor CBC and BMP. 3. Monitor cultures. 4. Based on the patient's clinical course and labs, we will do further recommendations. Kt Zavaleta M.D. DR: NORMAN JOB#: [id number] CC:
[2017-06-06] MEDS: cefTRIAXone 2 GM in D5W 55 ML IVPB SCH (14:35)
[2017-06-06 16:00] VITALS: BP 135/61
--- NOTE | 2017-06-06 16:43 | Cardiac Electrophysiology PN ---
Assessment/Plan Assessment/Plan 1. Accelerated hypertension. On Lasix 40 mg daily, lisinopril 40 mg daily, and Procardia XL 90 mg daily p.r.n. clonidine. 2. Hyperlipidemia, on Lipitor. 3. Diabetes, on metformin and insulin. 4. Diabetic foot ulcer, on IV antibiotics. Further evaluation by Dr. Rodrigues. CHARLEY RN Subjective Subjective Getting iv Abx. No events. No chest pain Objective Last 24 Hour Vital Signs Date Time Temp Pulse Resp B/P (MAP) Pulse Ox O2 Delivery O2 Flow Rate FiO2 06/06/17 12:00 97.9 70 20 139/85 95 Room Air 97.9 06/06/17 12:00 81 06/06/17 09:00 76 130/72 06/06/17 08:58 130/72 06/06/17 08:00 82 06/06/17 08:00 97.8 76 18 130/72 97 97.8 06/06/17 04:00 70 06/06/17 04:00 97.3 87 18 122/72 97 97.3 06/06/17 00:00 97.7 78 18 117/73 94 97.7 06/05/17 23:27 71 06/05/17 20:00 98.4 82 18 121/67 94 98.4 06/05/17 19:38 97 Intake and Output 06/05/17 06/06/17 19:00 07:00 Intake Total 320 ml 1600 ml Output Total 1600 ml 4000 ml Balance -1280 ml -2400 ml Intake Oral 260 ml 1600 ml IV Total 60 ml Output Urine Total 1600 ml 4000 ml Laboratory Tests Test 06/06/17 07:00 White Blood Count 10.4 K/UL (4.8-10.8) Red Blood Count 4.29 M/UL (4.70-6.10) L Hemoglobin 12.9 G/DL (14.2-18.0) L Hematocrit 38.1 % (42.0-52.0) L Mean Corpuscular Volume 89 FL (80-99) Mean Corpuscular Hemoglobin 30.0 PG (27.0-31.0) Mean Corpuscular Hemoglobin Concent 33.8 G/DL (32.0-36.0) Red Cell Distribution Width 11.5 % (11.6-14.8) L Platelet Count 297 K/UL (150-450) Mean Platelet Volume 6.1 FL (6.5-10.1) L Neutrophils (%) (Auto) 67.9 % (45.0-75.0) Lymphocytes (%) (Auto) 21.0 % (20.0-45.0) Monocytes (%) (Auto) 7.0 % (1.0-10.0) Eosinophils (%) (Auto) 3.4 % (0.0-3.0) H Basophils (%) (Auto) 0.7 % (0.0-2.0) Sodium Level 135 MMOL/L (136-145) L Potassium Level 3.4 MMOL/L (3.5-5.1) L Chloride Level 98 MMOL/L (98-107) Carbon Dioxide Level 31 MMOL/L (21-32) Anion Gap 6 mmol/L (5-15) Blood Urea Nitrogen 7 mg/dL (7-18) Creatinine 0.7 MG/DL (0.55-1.30) Estimat Glomerular Filtration Rate > 60 mL/min (>60) Glucose Level 161 MG/DL (74-106) H Calcium Level 8.6 MG/DL (8.5-10.1) Pro-B-Type Natriuretic Peptide 66 pg/mL (0-125) Triglycerides Level 157 MG/DL (30-150) H Cholesterol Level 205 MG/DL (< 200) H LDL Cholesterol 133 mg/dL (<100) H HDL Cholesterol 37 MG/DL (40-60) L Cholesterol/HDL Ratio 5.5 (3.3-4.4) H Microbiology Date/Time Source Procedure Growth Status 06/04/17 17:15 Blood Blood Culture - Preliminary NO GROWTH AFTER 24 HOURS Resulted 06/04/17 17:00 Blood Blood Culture - Preliminary NO GROWTH AFTER 24 HOURS Resulted 06/05/17 12:55 Foot Right Gram Stain - Final Resulted 06/05/17 12:55 Wound Culture - Preliminary Staphylococcus Aureus Resulted 06/04/17 16:40 Foot Right Gram Stain - Final Resulted 06/04/17 16:40 Wound Culture - Preliminary Staphylococcus Aureus - Mrsa Resulted Objective HEAD AND NECK: No JVD. LUNGS: Clear. CARDIOVASCULAR: Regular S1 and S2 with no gallop or murmur. ABDOMEN: Soft. EXTREMITIES: Status post surgery on the right knee. Has right foot cellulitis. Keshawn Mejia MD Jun 06, 2017 16:43
--- NOTE | 2017-06-06 18:45 | Consultation ---
DATE OF CONSULTATION: 06/05/2017 PSYCHOTHERAPY CONSULTATION PROGRESS NOTE CONSULTING PHYSICIAN: Travis May PsyD. TREATING ATTENDING PHYSICIAN: Sergio Felix D.O. HISTORY OF PRESENT ILLNESS: The patient is a 56-year-old male patient from [facility]. The patient was brought into the hospital for diabetic ulcer, congestive heart failure. The patient has history of psychosis and bipolar disorder according to his self report. The patient was referred for psychotherapeutic services due to feelings of depression, anxiety, and mood instability. When this clinician assessed this patient, the patient states that he has been feeling slightly depressed and anxious due to his medical condition being in the hospital setting. States that he does have history of mental illness and mood instability as his mood tends to fluctuate when he is under a lot of pressure. At this time, he denies suicidal or homicidal thoughts of ideation and denies any auditory or visual hallucinations. The patient has history of schizoaffective disorder. The patient was cooperative and able to communicate with this clinician. PAST MEDICAL HISTORY: Includes history of CHF, diabetes, right foot wound, hypertension. ALLERGIES: The patient has no known drug allergies. SUBSTANCE ABUSE HISTORY: The patient has history of alcohol use. Denies history of illicit substance use. Denies history of smoking cigarettes. PSYCHIATRIC HISTORY: The patient has history of schizoaffective disorder, bipolar type and had been treated with psychotropic medications in the past. SOCIAL HISTORY: The patient is a 56-year-old male patient from [facility]. Financially sustained through [employer]. MENTAL STATUS EXAMINATION: The patient is alert and oriented to person, place, and time. Mood is depressed. Affect is congruent. Thought process, disorganized. Thought content, remains slightly confused. He has poor attention and concentration. Poor insight, judgment, and impulse control. DIAGNOSES: [place] I Schizoaffective disorder, bipolar type. [place] II Deferred. [place] III Per H and P. PLAN: This clinician assessed the patient. Assessed the patient's mental status. Working on increasing compliance with treatment milieu and coping skills with an increasing insight into mental illness. Provided the patient with reality orientation and supportive psychotherapy. Continue behavioral management. This clinician has reviewed the patient's chart and discussed the treatment with treatment team. Travis May PsyD. DR: Blanka JOB#: [id number] CC:
[2017-06-06 20:00] VITALS: BP 111/68
--- NOTE | 2017-06-06 20:53 | Wound Care Consultation ---
Wound Assessment Wound Assessment : Wound Number: 1 Wound Present on Admission: Yes New Wound: No Status Change of Wound: No Wound Location Body Site Modif: right, plantar Wound Location Body Site: foot Janine Test: Does not Janine Vascular Issues: diabetic foot ulcers Wound Thickness: Full Thickness Wound Length: 2.5 Wound Width: 2.5 Wound Depth: utd Percent of Wound Bed Yellow/Wh: 100 Wound Drainage Description: Serosanguineous Wound Drainage Amount: Scant Wound Drainage Odor: None/Absent Tissue Surrounding Wound: Macerated Wound General Appearance: Draining Wound Comment #1 Left plantar 2nd metatarsal head, DM foot ulcer Recommendation -Local wound care per Dr's order -Keep clean and dry -Offload both heels -Heel protector on both heels -Optimize nutrition -Assess and f/u with MD for any changes FLYNN MCLAIN RN Jun 06, 2017 20:53
--- NOTE | 2017-06-06 22:15 | Progress Note ---
DATE: 06/06/2017 SUBJECTIVE: The patient is a 56-year-old male patient with diabetic foot ulcer, but he also has schizoaffective, bipolar type, and he has extreme mood lability worsened by the stress of his medical illness. That is why his attending has requested daily psychiatric consultation for this patient. He is having a lot of mood lability. MENTAL STATUS EXAMINATION: The patient is a 56-year-old male. Appearance is disheveled, irritable, and agitated. Affect guarded and restricted. Intellect poor. Mood depressed and anxious. Motor activity, psychomotor agitation. Attention span is poor. Orientation x2. Speech is pressured. Thought process is disorganized and illogical. Thought content, auditory hallucinations and paranoid delusions. Insight and judgment is poor. is poor. Description of delusions, delusions of people following him, changing medications, catching up on his antipsychotic medications. DIAGNOSIS: Schizoaffective, bipolar type. PLAN: Treat him with Celexa 10 mg daily, Depakote 250 mg daily, Neurontin 300 mg three times a day, and Risperdal. Provided 18-20 minutes of supportive therapy. Encouraged him to interact appropriately with staff and other patients. Chart was reviewed and discussed with staff. Seen and assessed at bedside. Cyndi Mcghee M.D. DR: PASCUAL JOB#: [id number] CC:
[2017-06-07] VITALS: BP 109/59
[2017-06-07 04:00] VITALS: BP 122/71
[2017-06-07] MEDS: D5NS 1,000 ML IV SCH ×2 (04:22→19:51)
[2017-06-07] MEDS: NovoLOG Insulin Flexpen SUBQ SCH ×4 (06:24→20:57)
[2017-06-07 08:00] VITALS: BP 117/67
--- NOTE | 2017-06-07 08:15 | Consultation ---
DATE OF CONSULTATION: 06/05/2017 CONSULTING PHYSICIAN: Kt Zavaleta M.D REASON FOR CONSULTATION: Evaluation of the patient for right foot cellulitis, rule out osteomyelitis. HISTORY OF PRESENT ILLNESS: The patient is a 56-year-old male with multiple medical problems as listed below, who came to the hospital due to right foot wound and cellulitis. The patient has been started on IV antibiotics, one dose of Unasyn was given. Infectious Disease consultation has been requested for further evaluation of the patient and antibiotic management. PAST MEDICAL HISTORY: Significant for: 1. Hyperlipidemia. 2. Diabetes. 3. Schizophrenia. ALLERGIES: No known drug allergies. SOCIAL HISTORY: Unremarkable. FAMILY HISTORY: Noncontributory. REVIEW OF SYSTEMS: HEENT: No recent change in vision or hearing. PULMONARY: No cough or shortness of breath CARDIOVASCULAR: No chest pain or palpitation. GASTROINTESTINAL/ABDOMEN: No nausea or vomiting. GENITOURINARY: No dysuria. MUSCULOSKELETAL: As mentioned above. PHYSICAL EXAMINATION: VITAL SIGNS: Temperature 97, blood pressure 104/80, pulse 86, respiratory rate 18. HEENT: No pale conjunctivae. No icterus. NECK: No lymphadenopathy. CHEST: Clear. HEART: S1 and S2. ABDOMEN: Soft. EXTREMITIES: The patient has small wound on the dorsum of the foot that was just debrided by regulated program manager. According to regulated program manager, it is superficial with no extension . The patient has mild erythema. NEUROLOGIC: Awake and alert. LABORATORY AND DIAGNOSTIC DATA: BUN 10 and creatinine 0.8. White blood cells , hemoglobin 13, platelets 107. Liver function tests are unremarkable. Chest x-ray [facility]. ASSESSMENT: The patient is a 56-year-old male with: 1. Right foot ulcer/wound infection/cellulitis. 2. Afebrile. 3. Normal white blood cells. 4. Status post debridement on 06/05/2017. PLAN: 1. We will continue the patient on IV vancomycin and Rocephin. 2. Monitor CBC. 3. Monitor BMP. 4. Monitor cultures (blood, wound). 5. Based on the patient's clinical course, labs, and cultures, we will do further recommendation. Thank you for this consultation. I will follow the patient with you during this admission. Kt Zavaleta M.D. DR: Ava JOB#: [id number] CC:
--- NOTE | 2017-06-07 08:20 | Cardiac Electrophysiology PN ---
Assessment/Plan Assessment/Plan 1. Accelerated hypertension. On Lasix 40 mg daily, lisinopril 40 mg daily, and Procardia XL 90 mg daily and p.r.n. clonidine. 2. Hyperlipidemia, on Lipitor. 3. Diabetes, on metformin and insulin. 4. Diabetic foot ulcer, on IV antibiotics. Further evaluation by Dr. Rodrigues. CHARLEY RN Subjective Subjective Getting iv Abx. No events.Comfortable. Still has foot pain. Objective Last 24 Hour Vital Signs Date Time Temp Pulse Resp B/P (MAP) Pulse Ox O2 Delivery O2 Flow Rate FiO2 06/07/17 04:00 98.1 72 19 122/71 96 Room Air 98.1 06/07/17 04:00 83 06/07/17 00:00 97.7 69 18 109/59 97 Room Air 97.7 06/07/17 00:00 69 06/06/17 20:00 69 06/06/17 20:00 96.5 75 19 111/68 98 Room Air 96.5 06/06/17 16:00 71 06/06/17 16:00 97.2 72 20 135/61 96 Room Air 97.2 06/06/17 12:00 97.9 70 20 139/85 95 Room Air 97.9 06/06/17 12:00 81 06/06/17 09:00 76 130/72 06/06/17 08:58 130/72 Intake and Output 06/06/17 06/07/17 19:00 07:00 Intake Total 1725 ml 1005 ml Output Total 2550 ml Balance -825 ml 1005 ml Intake Oral 600 ml IV Total 1125 ml 1005 ml Output Urine Total 2550 ml # Voids 1 Microbiology Date/Time Source Procedure Growth Status 06/04/17 17:15 Blood Blood Culture - Preliminary NO GROWTH AFTER 48 HOURS Resulted 06/04/17 17:00 Blood Blood Culture - Preliminary NO GROWTH AFTER 48 HOURS Resulted 06/05/17 12:55 Foot Right Gram Stain - Final Resulted 06/05/17 12:55 Wound Culture - Preliminary Staphylococcus Aureus Resulted 06/04/17 16:40 Foot Right Gram Stain - Final Resulted 06/04/17 16:40 Wound Culture - Preliminary Staphylococcus Aureus - Mrsa Resulted Objective HEAD AND NECK: No JVD. LUNGS: Clear. CARDIOVASCULAR: Regular S1 and S2 with no gallop or murmur. ABDOMEN: Soft. EXTREMITIES: [place] right knee. Right foot cellulitis. Keshawn Mejia MD Jun 07, 2017 08:20
[2017-06-07] MEDS: Citalopram Hydrobromide 10mg Tab ORAL SCH (09:08)
[2017-06-07] MEDS: metFORMIN 500mg tab ORAL SCH ×2 (09:08→17:21)
[2017-06-07] MEDS: Lisinopril 20mg tab ORAL SCH (09:10)
[2017-06-07] MEDS: Morphine Sulfate 4mg/ml Inj IVP PRN ×4 (09:11→23:03)
[2017-06-07] MEDS: Heparin 5000 units/ml inj SUBQ SCH ×2 (09:16→20:56)
[2017-06-07] MEDS: Dakin's 0.125% Soln (Quarter Strength) 16oz TOPIC SCH (09:16)
[2017-06-07 10:08] LABS: BASOPHILS % (AUTO) 0.7 % (0.0-2.0); EOSINOPHILS % (AUTO) 3.8 % (0.0-3.0); HEMATOCRIT 39.7 % (42.0-52.0); HEMOGLOBIN 13.6 G/DL (14.2-18.0); LYMPHOCYTES % (AUTO) 18.2 % (20.0-45.0); MEAN CORPUSCULAR VOLUME 89 FL (80-99); MONOCYTES % (AUTO) 5.8 % (1.0-10.0); NEUTROPHILS % (AUTO) 71.6 % (45.0-75.0); PLATELET COUNT 310 K/UL (150-450); RED BLOOD COUNT 4.48 M/UL (4.70-6.10); RED CELL DISTRIBUTION WIDTH 11.7 % (11.6-14.8); WHITE BLOOD COUNT 10.3 K/UL (4.8-10.8)
[2017-06-07 10:16] LABS: ANION GAP 7 mmol/L (5-15); BLOOD UREA NITROGEN 9 mg/dL (7-18); CALCIUM 8.5 MG/DL (8.5-10.1); CARBON DIOXIDE 29 MMOL/L (21-32); CHLORIDE 99 MMOL/L (98-107); CREATININE 0.9 MG/DL (0.55-1.30); POTASSIUM 3.9 MMOL/L (3.5-5.1); SODIUM 135 MMOL/L (136-145)
[2017-06-07] MEDS: Vancomycin 1.5 GM/D5W 250ML IVPB SCH ×2 (10:42→22:29)
[2017-06-07 12:00] VITALS: BP 117/72
--- NOTE | 2017-06-07 12:51 | General Progress Note ---
Assessment/Plan Problem List: (1) Skin abscess ICD Codes: L02.91 - Cutaneous abscess, unspecified SNOMED: 41326149 (2) Diabetic foot ulcer ICD Codes: E11.621 - Type 2 diabetes mellitus with foot ulcer; L97.509 - Non- pressure chronic ulcer of other part of unspecified foot with unspecified severity SNOMED: 501732230, 86272451 (3) Cellulitis ICD Codes: L03.90 - Cellulitis, unspecified SNOMED: 202444063 (4) CHF (congestive heart failure) ICD Codes: I50.9 - Heart failure, unspecified SNOMED: 21735278, 72782145 (5) Chronic pain ICD Codes: G89.29 - Other chronic pain SNOMED: 42375714 Status: unchanged Assessment/Plan ot pt diet wound care abx cbc bmp am dc plan w hh Subjective Constitutional: Reports: weakness Allergies: Coded Allergies: NO KNOWN ALLERGIES (Unverified Allergy, Unknown, 02/08/15) All Systems: reviewed and negative except above Subjective sleepy calm Objective Last 24 Hour Vital Signs Date Time Temp Pulse Resp B/P (MAP) Pulse Ox O2 Delivery O2 Flow Rate FiO2 06/07/17 12:00 97.2 80 20 117/72 95 Room Air 97.2 06/07/17 09:10 117/67 06/07/17 09:09 78 117/67 06/07/17 08:00 69 06/07/17 08:00 97.7 78 20 117/67 95 Room Air 97.7 06/07/17 04:00 98.1 72 19 122/71 96 Room Air 98.1 06/07/17 04:00 83 06/07/17 00:00 97.7 69 18 109/59 97 Room Air 97.7 06/07/17 00:00 69 06/06/17 20:00 69 06/06/17 20:00 96.5 75 19 111/68 98 Room Air 96.5 06/06/17 16:00 71 06/06/17 16:00 97.2 72 20 135/61 96 Room Air 97.2 Intake and Output 06/06/17 06/07/17 19:00 07:00 Intake Total 1725 ml 1005 ml Output Total 2550 ml Balance -825 ml 1005 ml Intake Oral 600 ml IV Total 1125 ml 1005 ml Output Urine Total 2550 ml # Voids 1 Laboratory Tests 06/07/17 09:35: White Blood Count 10.3, Red Blood Count 4.48L, Hemoglobin 13.6L, Hematocrit 39.7L, Mean Corpuscular Volume 89, Mean Corpuscular Hemoglobin 30.3, Mean Corpuscular Hemoglobin Concent 34.2, Red Cell Distribution Width 11.7, Platelet Count 310, Mean Platelet Volume 5.8L, Neutrophils (%) (Auto) 71.6, Lymphocytes ( %) (Auto) 18.2L, Monocytes (%) (Auto) 5.8, Eosinophils (%) (Auto) 3.8H, Basophils (%) (Auto) 0.7, Sodium Level 135L, Potassium Level 3.9, Chloride Level 99, Carbon Dioxide Level 29, Anion Gap 7, Blood Urea Nitrogen 9, Creatinine 0.9, Estimat Glomerular Filtration Rate > 60, Glucose Level 183H, Calcium Level 8.5 Height (Feet): 5 Height (Inches): 11.00 Weight (Pounds): 250 General Appearance: lethargic EENT: normal ENT inspection Neck: normal alignment Cardiovascular: normal peripheral pulses, normal rate, regular rhythm Respiratory/Chest: chest wall non-tender, lungs clear, normal breath sounds Abdomen: normal bowel sounds, non tender, soft Extremities: normal inspection Edema: 1+ Arm (L), 1+ Arm (R), 1+ Leg (L), 1+ Leg (R), 1+ Pedal (L), 1+ Pedal ( R), 1+ Generalized Neurologic: responsive, motor weakness Skin: normal pigmentation, warm/dry ROXANA MUSE Jun 07, 2017 12:51
[2017-06-07] MEDS: cefTRIAXone 2 GM in D5W 55 ML IVPB SCH (15:06)
[2017-06-07 16:00] VITALS: BP 108/65
--- NOTE | 2017-06-07 18:48 | Infectious Diseases Prog Note ---
Assessment/Plan Assessment/Plan ASSESSMENT: The patient is a 56-year-old male with Right foot plantar wound edema Wnd Cx : MRSA SP I/D by Pod , : clinically no evid of osteo as per Od Diabetes CHF Schizophrenia Hypertension PLAN: cont pt on IV Vanco d# 3 / 7 , upon DC will change to ( Bactrim ) to complete the course ,DC and rocephin D#3 Monitor cultures (Wnd ) Monitor chest x-ray Subjective Constitutional: Denies: no symptoms, fever, chills, fatigue, anorexia, drenching sweats, other Allergies: Coded Allergies: NO KNOWN ALLERGIES (Unverified Allergy, Unknown, 02/08/15) Objective Vital Signs Last 24 Hour Vital Signs Date Time Temp Pulse Resp B/P (MAP) Pulse Ox O2 Delivery O2 Flow Rate FiO2 06/07/17 16:00 97.9 86 20 108/65 94 Room Air 97.9 06/07/17 16:00 75 06/07/17 12:00 69 06/07/17 12:00 97.2 80 20 117/72 95 Room Air 97.2 06/07/17 09:10 117/67 06/07/17 09:09 78 117/67 06/07/17 08:00 69 06/07/17 08:00 97.7 78 20 117/67 95 Room Air 97.7 06/07/17 04:00 98.1 72 19 122/71 96 Room Air 98.1 06/07/17 04:00 83 06/07/17 00:00 97.7 69 18 109/59 97 Room Air 97.7 06/07/17 00:00 69 06/06/17 20:00 69 06/06/17 20:00 96.5 75 19 111/68 98 Room Air 96.5 Height (Feet): 5 Height (Inches): 11.00 Weight (Pounds): 250 HEENT: anicteric Respiratory/Chest: no respiratory distress Cardiovascular: regularly irregular Abdomen: no organomegaly Microbiology Date/Time Source Procedure Growth Status 06/04/17 20:20 Nasal Nares MRSA Culture - Final NO METHICILLIN RESISTANT STAPH AUREUS... Complete 06/05/17 12:55 Foot Right Gram Stain - Final Resulted 06/05/17 12:55 Wound Culture - Preliminary Staphylococcus Aureus - Mrsa Usual Skin Alyce Resulted 06/04/17 20:20 Rectum VRE Culture - Final NO VANCOMYCIN RESISTANT ENTEROCOCCUS ... Complete Laboratory Tests Test 06/07/17 09:35 White Blood Count 10.3 K/UL (4.8-10.8) Red Blood Count 4.48 M/UL (4.70-6.10) L Hemoglobin 13.6 G/DL (14.2-18.0) L Hematocrit 39.7 % (42.0-52.0) L Mean Corpuscular Volume 89 FL (80-99) Mean Corpuscular Hemoglobin 30.3 PG (27.0-31.0) Mean Corpuscular Hemoglobin Concent 34.2 G/DL (32.0-36.0) Red Cell Distribution Width 11.7 % (11.6-14.8) Platelet Count 310 K/UL (150-450) Mean Platelet Volume 5.8 FL (6.5-10.1) L Neutrophils (%) (Auto) 71.6 % (45.0-75.0) Lymphocytes (%) (Auto) 18.2 % (20.0-45.0) L Monocytes (%) (Auto) 5.8 % (1.0-10.0) Eosinophils (%) (Auto) 3.8 % (0.0-3.0) H Basophils (%) (Auto) 0.7 % (0.0-2.0) Sodium Level 135 MMOL/L (136-145) L Potassium Level 3.9 MMOL/L (3.5-5.1) Chloride Level 99 MMOL/L (98-107) Carbon Dioxide Level 29 MMOL/L (21-32) Anion Gap 7 mmol/L (5-15) Blood Urea Nitrogen 9 mg/dL (7-18) Creatinine 0.9 MG/DL (0.55-1.30) Estimat Glomerular Filtration Rate > 60 mL/min (>60) Glucose Level 183 MG/DL (74-106) H Calcium Level 8.5 MG/DL (8.5-10.1) Current Medications Medications (Trade) Dose Ordered Sig/Azar Route PRN Reason Start Time Stop Time Status Last Admin Dose Admin Acetaminophen (Tylenol) 650 mg Q8H PRN ORAL Fever/Headache/Mild Pain 06/05/17 01:15 07/05/17 00:00 Atorvastatin Calcium (Lipitor) 20 mg DAILY ORAL 06/05/17 09:00 07/05/17 08:59 06/07/17 09:08 Ceftriaxone Sodium 2 gm/ Dextrose 55 ml @ 110 mls/hr Q24H IVPB 06/05/17 15:00 06/12/17 14:59 06/07/17 15:06 Citalopram Hydrobromide (celeXA) 10 mg DAILY ORAL 06/06/17 10:00 07/05/17 08:59 06/07/17 09:08 Clonidine HCl (Catapres Tab) 0.1 mg Q2H PRN ORAL SBP > 170 06/05/17 15:30 07/05/17 15:29 Dextrose (Dextrose 50%) 25 ml STAT PRN IV HYPOGLYCEMIA 06/05/17 08:30 07/05/17 08:29 Dextrose (Dextrose 50%) 50 ml STAT PRN IV Hypoglycemia 06/05/17 08:30 07/05/17 00:00 Dextrose/Sodium Chloride 1,000 ml @ 60 mls/hr [id number] IV 06/05/17 01:00 07/05/17 00:59 06/07/17 04:22 Divalproex Sodium (Depakote) 250 mg DAILY ORAL 06/05/17 09:00 07/05/17 08:59 06/07/17 09:09 Folic Acid (Folate) 1 mg DAILY ORAL 06/05/17 09:00 07/05/17 08:59 06/07/17 09:09 Furosemide (Lasix) 40 mg DAILY ORAL 06/06/17 09:00 07/05/17 08:59 06/07/17 09:09 Gabapentin (Neurontin) 300 mg TID ORAL 06/05/17 09:00 07/05/17 08:59 06/07/17 17:19 Heparin Sodium (Porcine) (Heparin 5000 units/ml) 5,000 units EVERY 12 HOURS SUBQ 06/05/17 09:00 07/05/17 08:59 06/07/17 09:16 Insulin Aspart (NovoLOG) BEFORE MEALS AND HS SUBQ 06/05/17 06:30 07/05/17 06:29 06/07/17 16:39 Lisinopril (Prinivil) 40 mg DAILY ORAL 06/05/17 09:00 07/05/17 08:59 06/07/17 09:10 Metformin HCl (Glucophage) 1,000 mg BID ORAL 06/05/17 09:00 07/05/17 08:59 06/07/17 17:21 Morphine Sulfate (Morphine Sulfate) 2 mg Q4H PRN IVP for pain 06/04/17 23:15 06/11/17 23:14 06/07/17 18:36 Nifedipine (Procardia XL) 90 mg DAILY ORAL 06/06/17 09:00 07/05/17 08:59 06/07/17 09:09 Sitagliptin Phosphate (Januvia) 100 mg DAILY ORAL 06/05/17 09:00 07/05/17 08:59 06/07/17 09:08 Sodium Hypochlorite (Dakin's Quarter Strength) 1 applic DAILY TOPIC 06/06/17 09:00 07/06/17 08:59 06/07/17 09:16 Vancomycin HCl (Vanco rx to dose) 1 ea DAILY PRN MISC Per rx protocol 06/06/17 10:30 07/06/17 10:29 Vancomycin HCl/ Dextrose 250 ml @ 125 mls/hr Q12HR@1100,2300 IVPB 06/06/17 11:00 06/11/17 10:59 06/07/17 10:42 Kt Zavaleta MD Jun 07, 2017 18:48
[2017-06-07 20:00] VITALS: BP 90/54
--- NOTE | 2017-06-07 22:30 | Progress Note ---
DATE: 06/06/2017 PSYCHOTHERAPY CONSULTATION PROGRESS NOTE TREATING ATTENDING PHYSICIAN: Sergio Felix D.O. SUBJECTIVE: This is a 56-year-old male patient from [facility]. The patient has a history of schizoaffective disorder. The patient's mood continues to remain irritable and labile. The patient states that he has been feeling helpless due to being in the hospital, wants to return back to home as soon as possible. He has been feeling helpless and hopeless; however, is redirectable and is cooperative. PLAN: This clinician assessed the patient. Assessed the patient's mental status. Provided the patient with reality orientation and provided the patient with supportive psychotherapy. Encouraging the patient to participate in treatment milieu. Continue with behavioral management. . This clinician has reviewed the patient's chart and discussed the treatment with treatment team. Travis May PsyD. DR: Ava JOB#: [id number] CC:
--- NOTE | 2017-06-07 23:45 | Consultation ---
DATE OF CONSULTATION: 06/07/2017 CONSULTING PHYSICIAN: Cyndi Mcghee M.D. HISTORY OF PRESENT ILLNESS: The patient is a 56-year-old male patient with diabetic foot ulcer. This patient has some confusion, disorganized thought process, and mood lability worsened by stress of his medical illness. That is why, his attending physician has requested daily psychiatric consultation. MENTAL STATUS EXAMINATION: This is a 56-year-old male. Appearance is disheveled, irritable and agitated. Affect is guarded and restricted. Intellect poor. Mood is depressed and anxious. Motor activity, psychomotor agitation. Attention span is poor. Orientation x2. Speech is pressured. Thought process, disorganized and illogical. Thought content, no auditory hallucinations or paranoid delusions. Insight and judgment is poor. poor. Description of delusions, delusions of people following him, changing medication. DIAGNOSIS: Schizoaffective, bipolar type. PLAN: Risperdal 0.5 mg at bedtime, Celexa 10 mg daily, Depakote 250 mg daily, and Neurontin 300 mg three times a day. Provide 18 to 20 minutes of supportive therapy. Seen and assessed at bedside. Chart reviewed and discussed with the staff. 18 to 20 minutes of supportive therapy provided. Cyndi Mcghee M.D. DR: JIAN JOB#: [id number] CC:
[2017-06-08] VITALS: BP 113/66
[2017-06-08 04:00] VITALS: BP 106/60
[2017-06-08] MEDS: Morphine Sulfate 4mg/ml Inj IVP PRN ×4 (06:19→20:39)
[2017-06-08] MEDS: NovoLOG Insulin Flexpen SUBQ SCH ×4 (06:38→20:36)
[2017-06-08 08:00] VITALS: BP 123/77
[2017-06-08] MEDS: metFORMIN 500mg tab ORAL SCH ×2 (08:47→17:26)
[2017-06-08] MEDS: Citalopram Hydrobromide 10mg Tab ORAL SCH (08:48)
[2017-06-08] MEDS: Lisinopril 20mg tab ORAL SCH (08:48)
[2017-06-08 08:54] LABS: ANION GAP 6 mmol/L (5-15); BLOOD UREA NITROGEN 10 mg/dL (7-18); CALCIUM 8.5 MG/DL (8.5-10.1); CARBON DIOXIDE 29 MMOL/L (21-32); CHLORIDE 99 MMOL/L (98-107); CREATININE 0.9 MG/DL (0.55-1.30); POTASSIUM 3.7 MMOL/L (3.5-5.1); SODIUM 134 MMOL/L (136-145)
[2017-06-08 08:55] LABS: BASOPHILS % (AUTO) 1.2 % (0.0-2.0); EOSINOPHILS % (AUTO) 5.1 % (0.0-3.0); HEMATOCRIT 39.8 % (42.0-52.0); HEMOGLOBIN 13.7 G/DL (14.2-18.0); LYMPHOCYTES % (AUTO) 22.1 % (20.0-45.0); MEAN CORPUSCULAR VOLUME 89 FL (80-99); MONOCYTES % (AUTO) 7.2 % (1.0-10.0); NEUTROPHILS % (AUTO) 64.4 % (45.0-75.0); PLATELET COUNT 295 K/UL (150-450); RED BLOOD COUNT 4.47 M/UL (4.70-6.10); RED CELL DISTRIBUTION WIDTH 11.6 % (11.6-14.8); WHITE BLOOD COUNT 8.2 K/UL (4.8-10.8)
[2017-06-08] MEDS: Dakin's 0.125% Soln (Quarter Strength) 16oz TOPIC SCH (08:55)
[2017-06-08] MEDS: Heparin 5000 units/ml inj SUBQ SCH ×2 (08:55→20:37)
--- NOTE | 2017-06-08 09:57 | General Progress Note ---
Assessment/Plan Problem List: (1) Skin abscess ICD Codes: L02.91 - Cutaneous abscess, unspecified SNOMED: 27539352 (2) Diabetic foot ulcer ICD Codes: E11.621 - Type 2 diabetes mellitus with foot ulcer; L97.509 - Non- pressure chronic ulcer of other part of unspecified foot with unspecified severity SNOMED: 561927333, 66779782 (3) Cellulitis ICD Codes: L03.90 - Cellulitis, unspecified SNOMED: 703393467 (4) CHF (congestive heart failure) ICD Codes: I50.9 - Heart failure, unspecified SNOMED: 75573238, 13402376 (5) Chronic pain ICD Codes: G89.29 - Other chronic pain SNOMED: 43978712 Status: stable, progressing, tolerating diet Assessment/Plan ot pt diet wound care abx cbc bmp am dc plan w hh Subjective Constitutional: Reports: weakness Allergies: Coded Allergies: NO KNOWN ALLERGIES (Unverified Allergy, Unknown, 02/08/15) All Systems: reviewed and negative except above Subjective sleepy calm Objective Last 24 Hour Vital Signs Date Time Temp Pulse Resp B/P (MAP) Pulse Ox O2 Delivery O2 Flow Rate FiO2 06/08/17 08:48 123/77 06/08/17 08:47 74 123/77 06/08/17 08:00 97.0 74 20 123/77 95 Room Air 97.0 06/08/17 04:00 75 06/08/17 04:00 97.7 74 20 106/60 93 Room Air 97.7 06/08/17 01:14 70 06/08/17 00:00 97.7 74 20 113/66 93 Room Air 97.7 06/07/17 20:00 98.1 74 20 90/54 93 Room Air 98.1 06/07/17 20:00 75 06/07/17 16:00 97.9 86 20 108/65 94 Room Air 97.9 06/07/17 16:00 75 06/07/17 12:00 69 06/07/17 12:00 97.2 80 20 117/72 95 Room Air 97.2 Intake and Output 06/07/17 06/08/17 19:00 07:00 Intake Total 1985 ml 910 ml Output Total 1600 ml 1160 ml Balance 385 ml -250 ml Intake Oral 960 ml IV Total 1025 ml 910 ml Output Urine Total 1600 ml 1160 ml # Voids 1 Laboratory Tests 06/07/17 21:50: Vancomycin Level Trough 11.5 06/08/17 08:10: White Blood Count 8.2, Red Blood Count 4.47L, Hemoglobin 13.7L, Hematocrit 39.8L , Mean Corpuscular Volume 89, Mean Corpuscular Hemoglobin 30.6, Mean Corpuscular Hemoglobin Concent 34.4, Red Cell Distribution Width 11.6, Platelet Count 295, Mean Platelet Volume 5.8L, Neutrophils (%) (Auto) 64.4, Lymphocytes ( %) (Auto) 22.1, Monocytes (%) (Auto) 7.2, Eosinophils (%) (Auto) 5.1H, Basophils (%) (Auto) 1.2, Sodium Level 134L, Potassium Level 3.7, Chloride Level 99, Carbon Dioxide Level 29, Anion Gap 6, Blood Urea Nitrogen 10, Creatinine 0.9, Estimat Glomerular Filtration Rate > 60, Glucose Level 183H, Calcium Level 8.5 Height (Feet): 5 Height (Inches): 11.00 Weight (Pounds): 250 General Appearance: alert EENT: normal ENT inspection Neck: normal alignment Cardiovascular: normal peripheral pulses, normal rate, regular rhythm Respiratory/Chest: chest wall non-tender, lungs clear, normal breath sounds Abdomen: normal bowel sounds, non tender, soft Extremities: normal inspection Edema: 1+ Arm (L), 1+ Arm (R), 1+ Leg (L), 1+ Leg (R), 1+ Pedal (L), 1+ Pedal ( R), 1+ Generalized Edema: trace edema Neurologic: responsive, motor weakness Skin: normal pigmentation, warm/dry ROXANA MUSE Jun 08, 2017 09:57
[2017-06-08] MEDS: Vancomycin 1.5 GM/D5W 250ML IVPB SCH ×2 (10:48→23:41)
[2017-06-08 12:00] VITALS: BP 121/71
[2017-06-08] MEDS: D5NS 1,000 ML IV SCH (12:14)
--- NOTE | 2017-06-08 15:33 | Cardiac Electrophysiology PN ---
Assessment/Plan Assessment/Plan 1. Accelerated hypertension. On Lasix 40 mg daily, lisinopril 40 mg daily, and Procardia XL 90 mg daily and p.r.n. clonidine. 2. Hyperlipidemia, on Lipitor. 3. Diabetes, on metformin and insulin. 4. Diabetic foot ulcer, on IV antibiotics. Further evaluation by Dr. Rodrigues. CHARLEY ROK to DC from cardiac stand point Subjective Subjective Getting iv Abx. No events.Comfortable. DC planning in progress Objective Last 24 Hour Vital Signs Date Time Temp Pulse Resp B/P (MAP) Pulse Ox O2 Delivery O2 Flow Rate FiO2 06/08/17 12:00 72 06/08/17 12:00 97.7 76 20 121/71 97 Room Air 97.7 06/08/17 08:48 123/77 06/08/17 08:47 74 123/77 06/08/17 08:00 97.0 74 20 123/77 95 Room Air 97.0 06/08/17 08:00 72 06/08/17 04:00 75 06/08/17 04:00 97.7 74 20 106/60 93 Room Air 97.7 06/08/17 01:14 70 06/08/17 00:00 97.7 74 20 113/66 93 Room Air 97.7 06/07/17 20:00 98.1 74 20 90/54 93 Room Air 98.1 06/07/17 20:00 75 06/07/17 16:00 97.9 86 20 108/65 94 Room Air 97.9 06/07/17 16:00 75 Intake and Output 06/07/17 06/08/17 19:00 07:00 Intake Total 1985 ml 910 ml Output Total 1600 ml 1160 ml Balance 385 ml -250 ml Intake Oral 960 ml IV Total 1025 ml 910 ml Output Urine Total 1600 ml 1160 ml # Voids 1 Laboratory Tests Test 06/07/17 21:50 06/08/17 08:10 Vancomycin Level Trough 11.5 ug/mL (5.0-12.0) White Blood Count 8.2 K/UL (4.8-10.8) Red Blood Count 4.47 M/UL (4.70-6.10) L Hemoglobin 13.7 G/DL (14.2-18.0) L Hematocrit 39.8 % (42.0-52.0) L Mean Corpuscular Volume 89 FL (80-99) Mean Corpuscular Hemoglobin 30.6 PG (27.0-31.0) Mean Corpuscular Hemoglobin Concent 34.4 G/DL (32.0-36.0) Red Cell Distribution Width 11.6 % (11.6-14.8) Platelet Count 295 K/UL (150-450) Mean Platelet Volume 5.8 FL (6.5-10.1) L Neutrophils (%) (Auto) 64.4 % (45.0-75.0) Lymphocytes (%) (Auto) 22.1 % (20.0-45.0) Monocytes (%) (Auto) 7.2 % (1.0-10.0) Eosinophils (%) (Auto) 5.1 % (0.0-3.0) H Basophils (%) (Auto) 1.2 % (0.0-2.0) Sodium Level 134 MMOL/L (136-145) L Potassium Level 3.7 MMOL/L (3.5-5.1) Chloride Level 99 MMOL/L (98-107) Carbon Dioxide Level 29 MMOL/L (21-32) Anion Gap 6 mmol/L (5-15) Blood Urea Nitrogen 10 mg/dL (7-18) Creatinine 0.9 MG/DL (0.55-1.30) Estimat Glomerular Filtration Rate > 60 mL/min (>60) Glucose Level 183 MG/DL (74-106) H Calcium Level 8.5 MG/DL (8.5-10.1) Objective HEAD AND NECK: No JVD. LUNGS: Clear. CARDIOVASCULAR: Regular S1 and S2 with no gallop or murmur. ABDOMEN: Soft. EXTREMITIES: [place] right knee. Right foot dressing on Keshawn Mejia MD Jun 08, 2017 15:33
[2017-06-08 16:00] VITALS: BP 118/77
--- NOTE | 2017-06-08 18:09 | Cardiology Report ---
APPROVED REPORT EXAM: Two-dimensional and M-mode echocardiogram with Doppler and color Doppler. INDICATION Hypertension/HCVD M-Mode DIMENSIONS IVSd1.5 (0.7-1.1cm)Left Atrium (MM)3.7 (1.6-4.0cm) LVDd6.1 (3.5-5.6cm)Aortic Root3.6 (2.0-3.7cm) PWd1.3 (0.7-1.1cm)Aortic Cusp Exc.1.8 (1.5-2.0cm) IVSs2.3 cm LVDs3.9 (2.5-4.0cm) PWs1.9 cm Normal left ventricular chamber size, systolic function and wall motion. Left ventricular ejection fraction estimated to be 65-70 %. Mild left ventricular hypertrophy by 2-D. No evidence of pericardial effusion. Left atrial chamber size is within normal limits. Right cardiac chamber sizes are at upper limits of normal. Focal aortic valve sclerosis with adequate cusp excursion. Mildly Thickened mitral valve leaflets with normal excursion. Mildly Mitral annulus and aortic root calcification. Pulmonic valve not well visualized. Normal tricuspid valve structure. IVC at normal size with physiologic collapse. A color flow and spectral Doppler study was performed and revealed: No aortic insufficiency. Trace mitral regurgitation. Normal left ventricular diastolic function . Mild tricuspid regurgitation. Tricuspid systolic velocities suggests peak right ventricular systolic pressure of 39 mmHg, consistent with mild pulmonary hypertension. No pulmonic regurgitation present .
[2017-06-08 20:00] VITALS: BP 117/72
--- NOTE | 2017-06-08 23:00 | Progress Note ---
DATE: 06/08/2017 SUBJECTIVE: The patient is a 56-year-old male, who presents for diabetic foot ulcer. He has altered mental status, confusion, and mood lability. That is why, his attending physician has requested daily psychiatric consultation. MENTAL STATUS EXAMINATION: This is a 56-year-old male with psychomotor agitation. Mood is irritable and agitated. Affect guarded and restricted. Thought process is disorganized and illogical. Insight and judgment is poor. DIAGNOSIS: Schizoaffective, bipolar type. PLAN: Plan is to treat the patient with Celexa 10 mg daily, Depakote 250 daily, Neurontin 300 mg three times a day, and Risperdal 0.5 mg. Chart was reviewed and discussed with staff. An 18 to 20 minutes of supportive therapy provided. Cyndi Mcghee M.D. DR: GARRISON JOB#: [id number] CC:
[2017-06-09] VITALS: BP 116/73
[2017-06-09] MEDS: Morphine Sulfate 4mg/ml Inj IVP PRN ×5 (01:52→20:29)
[2017-06-09 04:00] VITALS: BP 122/75
[2017-06-09] MEDS: D5NS 1,000 ML IV SCH ×2 (05:49→15:42)
[2017-06-09] MEDS: NovoLOG Insulin Flexpen SUBQ SCH ×4 (05:52→20:30)
[2017-06-09 08:00] VITALS: BP 123/77
[2017-06-09] MEDS: Citalopram Hydrobromide 10mg Tab ORAL SCH (08:14)
[2017-06-09] MEDS: metFORMIN 500mg tab ORAL SCH ×2 (08:17→17:30)
[2017-06-09] MEDS: Lisinopril 20mg tab ORAL SCH (08:18)
[2017-06-09] MEDS: Dakin's 0.125% Soln (Quarter Strength) 16oz TOPIC SCH (08:35)
[2017-06-09] MEDS: Heparin 5000 units/ml inj SUBQ SCH ×2 (08:35→20:31)
--- NOTE | 2017-06-09 08:48 | General Progress Note ---
Assessment/Plan Problem List: (1) Skin abscess ICD Codes: L02.91 - Cutaneous abscess, unspecified SNOMED: 27162215 (2) Diabetic foot ulcer ICD Codes: E11.621 - Type 2 diabetes mellitus with foot ulcer; L97.509 - Non- pressure chronic ulcer of other part of unspecified foot with unspecified severity SNOMED: 280587471, 44043239 (3) Cellulitis ICD Codes: L03.90 - Cellulitis, unspecified SNOMED: 703763738 (4) CHF (congestive heart failure) ICD Codes: I50.9 - Heart failure, unspecified SNOMED: 30263946, 95292101 (5) Chronic pain ICD Codes: G89.29 - Other chronic pain SNOMED: 60753613 Status: unchanged Assessment/Plan ot pt diet wound care abx cbc bmp am ltach eval Subjective Allergies: Coded Allergies: NO KNOWN ALLERGIES (Unverified Allergy, Unknown, 02/08/15) All Systems: reviewed and negative except above Subjective sleepy calm Objective Last 24 Hour Vital Signs Date Time Temp Pulse Resp B/P (MAP) Pulse Ox O2 Delivery O2 Flow Rate FiO2 06/09/17 08:18 72 113/71 06/09/17 08:18 113/71 06/09/17 04:00 97.5 80 20 122/75 95 Room Air 97.5 06/09/17 04:00 68 06/09/17 00:00 82 06/09/17 00:00 97.5 80 20 116/73 94 Room Air 97.5 06/08/17 20:00 97.0 82 20 117/72 96 Room Air 97.0 06/08/17 20:00 76 06/08/17 16:00 69 06/08/17 16:00 97.7 76 20 118/77 96 Room Air 97.7 06/08/17 12:00 72 06/08/17 12:00 97.7 76 20 121/71 97 Room Air 97.7 Intake and Output 06/08/17 06/09/17 19:00 07:00 Intake Total 1779 ml 600 ml Output Total 2050 ml Balance -271 ml 600 ml Intake Oral 810 ml IV Total 969 ml 600 ml Output Urine Total 2050 ml Height (Feet): 5 Height (Inches): 11.00 Weight (Pounds): 250 General Appearance: alert EENT: normal ENT inspection Neck: normal alignment Cardiovascular: normal peripheral pulses, normal rate, regular rhythm Respiratory/Chest: chest wall non-tender, lungs clear, normal breath sounds Abdomen: normal bowel sounds, non tender, soft Extremities: normal inspection Edema: no edema noted Arm (L), no edema noted Arm (R), no edema noted Leg (L), no edema noted Leg (R), no edema noted Pedal (L), no edema noted Pedal (R), no edema noted Generalized Neurologic: responsive, motor weakness Skin: normal pigmentation, warm/dry ROXANA MUSE Jun 09, 2017 08:48
[2017-06-09 09:20] LABS: BASOPHILS % (AUTO) 1.1 % (0.0-2.0); EOSINOPHILS % (AUTO) 5.3 % (0.0-3.0); LYMPHOCYTES % (AUTO) 24.3 % (20.0-45.0); MEAN CORPUSCULAR VOLUME 90 FL (80-99); MONOCYTES % (AUTO) 7.1 % (1.0-10.0); NEUTROPHILS % (AUTO) 62.2 % (45.0-75.0); PLATELET COUNT 317 K/UL (150-450); RED BLOOD COUNT 4.67 M/UL (4.70-6.10); RED CELL DISTRIBUTION WIDTH 11.8 % (11.6-14.8); WHITE BLOOD COUNT 8.6 K/UL (4.8-10.8)
[2017-06-09 09:48] LABS: ANION GAP 8 mmol/L (5-15); BLOOD UREA NITROGEN 10 mg/dL (7-18); CALCIUM 8.7 MG/DL (8.5-10.1); CARBON DIOXIDE 30 MMOL/L (21-32); CHLORIDE 97 MMOL/L (98-107); CREATININE 0.8 MG/DL (0.55-1.30); POTASSIUM 3.7 MMOL/L (3.5-5.1); SODIUM 135 MMOL/L (136-145)
[2017-06-09] MEDS: Vancomycin 1.5 GM/D5W 250ML IVPB SCH (10:52)
[2017-06-09 12:00] VITALS: BP 103/73
--- NOTE | 2017-06-09 12:15 | Progress Note ---
DATE: 06/09/2017 NOTE: "POOR AUDIO QUALITY" SUBJECTIVE: The patient is a 56-year-old patient with diabetic foot ulcer. He has some mood liability, confusion, decline in cognition. That is why, his attending physician has requested daily psychiatric consultation. MENTAL STATUS EXAMINATION: This is a 56-year-old male with psychomotor retardation. Mood is depressed. Affect guarded and restricted. Intellect poor. Mood is depressed and anxious. Motor activity, psychomotor agitation. Insight and judgment is poor. DIAGNOSIS: Schizoaffective, bipolar type. PLAN: Continue with psychotropic medications to stabilize his mood, reduce mood liability and agitation. About 18 to 20 minutes of supportive therapy provided. Chart was reviewed and discussed with staff. Seen and assessed in his room. Cyndi Mcghee M.D. DR: Tammy JOB#: [id number] CC:
--- NOTE | 2017-06-09 12:49 | Infectious Diseases Prog Note ---
Assessment/Plan Assessment/Plan ASSESSMENT: The patient is a 56-year-old male with Right foot plantar wound edema Wnd Cx : MRSA SP I/D by Pod, Clinically no evid of osteo as per Pod Diabetes CHF Schizophrenia Hypertension PLAN: cont pt on IV Vanco d# 5 / , upon DC will change to ( Bactrim ) to complete the course , 06/07 SP Rocephin D#3 Monitor cultures (Wnd ) Monitor chest x-ray Subjective Constitutional: Denies: no symptoms, fever, chills, fatigue, anorexia, drenching sweats, other Allergies: Coded Allergies: NO KNOWN ALLERGIES (Unverified Allergy, Unknown, 02/08/15) Objective Vital Signs Last 24 Hour Vital Signs Date Time Temp Pulse Resp B/P (MAP) Pulse Ox O2 Delivery O2 Flow Rate FiO2 06/09/17 12:00 97.9 71 19 103/73 93 Room Air 97.9 06/09/17 08:18 72 113/71 06/09/17 08:18 113/71 06/09/17 08:00 97.0 74 20 123/77 95 Room Air 97.0 06/09/17 08:00 65 06/09/17 04:00 97.5 80 20 122/75 95 Room Air 97.5 06/09/17 04:00 68 06/09/17 00:00 82 06/09/17 00:00 97.5 80 20 116/73 94 Room Air 97.5 06/08/17 20:00 97.0 82 20 117/72 96 Room Air 97.0 06/08/17 20:00 76 06/08/17 16:00 69 06/08/17 16:00 97.7 76 20 118/77 96 Room Air 97.7 Height (Feet): 5 Height (Inches): 11.00 Weight (Pounds): 250 HEENT: atraumatic Respiratory/Chest: no respiratory distress Cardiovascular: regularly irregular Abdomen: no organomegaly Laboratory Tests Test 06/09/17 07:40 White Blood Count 8.6 K/UL (4.8-10.8) Red Blood Count 4.67 M/UL (4.70-6.10) L Hemoglobin 14.0 G/DL (14.2-18.0) L Hematocrit 42.0 % (42.0-52.0) Mean Corpuscular Volume 90 FL (80-99) Mean Corpuscular Hemoglobin 30.0 PG (27.0-31.0) Mean Corpuscular Hemoglobin Concent 33.4 G/DL (32.0-36.0) Red Cell Distribution Width 11.8 % (11.6-14.8) Platelet Count 317 K/UL (150-450) Mean Platelet Volume 5.4 FL (6.5-10.1) L Neutrophils (%) (Auto) 62.2 % (45.0-75.0) Lymphocytes (%) (Auto) 24.3 % (20.0-45.0) Monocytes (%) (Auto) 7.1 % (1.0-10.0) Eosinophils (%) (Auto) 5.3 % (0.0-3.0) H Basophils (%) (Auto) 1.1 % (0.0-2.0) Sodium Level 135 MMOL/L (136-145) L Potassium Level 3.7 MMOL/L (3.5-5.1) Chloride Level 97 MMOL/L (98-107) L Carbon Dioxide Level 30 MMOL/L (21-32) Anion Gap 8 mmol/L (5-15) Blood Urea Nitrogen 10 mg/dL (7-18) Creatinine 0.8 MG/DL (0.55-1.30) Estimat Glomerular Filtration Rate > 60 mL/min (>60) Glucose Level 171 MG/DL (74-106) H Calcium Level 8.7 MG/DL (8.5-10.1) Current Medications Medications (Trade) Dose Ordered Sig/Azar Route PRN Reason Start Time Stop Time Status Last Admin Dose Admin Acetaminophen (Tylenol) 650 mg Q8H PRN ORAL Fever/Headache/Mild Pain 06/05/17 01:15 07/05/17 00:00 Atorvastatin Calcium (Lipitor) 20 mg DAILY ORAL 06/05/17 09:00 07/05/17 08:59 06/09/17 08:19 Citalopram Hydrobromide (celeXA) 10 mg DAILY ORAL 06/06/17 10:00 07/05/17 08:59 06/09/17 08:14 Clonidine HCl (Catapres Tab) 0.1 mg Q2H PRN ORAL SBP > 170 06/05/17 15:30 07/05/17 15:29 Dextrose (Dextrose 50%) 25 ml STAT PRN IV HYPOGLYCEMIA 06/05/17 08:30 07/05/17 08:29 Dextrose (Dextrose 50%) 50 ml STAT PRN IV Hypoglycemia 06/05/17 08:30 07/05/17 00:00 Dextrose/Sodium Chloride 1,000 ml @ 60 mls/hr [id number] IV 06/05/17 01:00 07/05/17 00:59 06/09/17 05:49 Divalproex Sodium (Depakote) 250 mg DAILY ORAL 06/05/17 09:00 07/05/17 08:59 06/09/17 08:34 Folic Acid (Folate) 1 mg DAILY ORAL 06/05/17 09:00 07/05/17 08:59 06/09/17 08:14 Furosemide (Lasix) 40 mg DAILY ORAL 06/06/17 09:00 07/05/17 08:59 06/09/17 08:19 Gabapentin (Neurontin) 300 mg TID ORAL 06/05/17 09:00 07/05/17 08:59 06/09/17 12:14 Heparin Sodium (Porcine) (Heparin 5000 units/ml) 5,000 units EVERY 12 HOURS SUBQ 06/05/17 09:00 07/05/17 08:59 06/08/17 20:37 Insulin Aspart (NovoLOG) BEFORE MEALS AND HS SUBQ 06/05/17 06:30 07/05/17 06:29 06/09/17 12:06 Lisinopril (Prinivil) 40 mg DAILY ORAL 06/05/17 09:00 07/05/17 08:59 06/09/17 08:18 Metformin HCl (Glucophage) 1,000 mg BID ORAL 06/05/17 09:00 07/05/17 08:59 06/09/17 08:17 Morphine Sulfate (Morphine Sulfate) 2 mg Q4H PRN IVP for pain 06/04/17 23:15 06/11/17 23:14 06/09/17 11:05 Nifedipine (Procardia XL) 90 mg DAILY ORAL 06/06/17 09:00 07/05/17 08:59 06/09/17 08:18 Sitagliptin Phosphate (Januvia) 100 mg DAILY ORAL 06/05/17 09:00 07/05/17 08:59 06/09/17 08:14 Sodium Hypochlorite (Dakin's Quarter Strength) 1 applic DAILY TOPIC 06/06/17 09:00 07/06/17 08:59 06/09/17 08:35 Vancomycin HCl (Vanco rx to dose) 1 ea DAILY PRN MISC Per rx protocol 06/06/17 10:30 07/06/17 10:29 Vancomycin HCl/ Dextrose 250 ml @ 125 mls/hr Q12HR@1100,2300 IVPB 06/06/17 11:00 06/11/17 10:59 06/09/17 10:52 Kt Zavaleta MD Jun 09, 2017 12:49
[2017-06-09] MEDS ORDERED: Morphine Sulfate 4mg/ml Inj IVP PRN (15:15)
[2017-06-09 15:55] VITALS: BP 102/63
[2017-06-09 20:00] VITALS: BP 123/84
[2017-06-09] MEDS: Vancomycin 1.5gm/D5W 250ml 250 ML IVPB SCH (23:10)
[2017-06-10] VITALS: BP 129/74
[2017-06-10] MEDS: Morphine Sulfate 4mg/ml Inj IVP PRN ×5 (00:42→20:09)
[2017-06-10 04:00] VITALS: BP 121/69
[2017-06-10] MEDS: NovoLOG Insulin Flexpen SUBQ SCH ×4 (05:29→20:07)
[2017-06-10 07:12] LABS: BASOPHILS % (AUTO) 0.9 % (0.0-2.0); EOSINOPHILS % (AUTO) 6.4 % (0.0-3.0); HEMATOCRIT 40.5 % (42.0-52.0); HEMOGLOBIN 13.8 G/DL (14.2-18.0); LYMPHOCYTES % (AUTO) 30.4 % (20.0-45.0); MEAN CORPUSCULAR VOLUME 89 FL (80-99); MONOCYTES % (AUTO) 8.3 % (1.0-10.0); NEUTROPHILS % (AUTO) 54.1 % (45.0-75.0); PLATELET COUNT 287 K/UL (150-450); RED BLOOD COUNT 4.56 M/UL (4.70-6.10); RED CELL DISTRIBUTION WIDTH 11.5 % (11.6-14.8); WHITE BLOOD COUNT 8.3 K/UL (4.8-10.8)
[2017-06-10 07:45] LABS: ANION GAP 8 mmol/L (5-15); BLOOD UREA NITROGEN 11 mg/dL (7-18); CALCIUM 8.7 MG/DL (8.5-10.1); CARBON DIOXIDE 29 MMOL/L (21-32); CHLORIDE 98 MMOL/L (98-107); CREATININE 0.8 MG/DL (0.55-1.30); POTASSIUM 3.5 MMOL/L (3.5-5.1); SODIUM 135 MMOL/L (136-145)
[2017-06-10 08:00] VITALS: BP 116/72
[2017-06-10] MEDS: Citalopram Hydrobromide 10mg Tab ORAL SCH (09:52)
[2017-06-10] MEDS: D5NS 1,000 ML IV SCH (09:52)
[2017-06-10] MEDS: metFORMIN 500mg tab ORAL SCH ×2 (09:53→17:51)
[2017-06-10] MEDS: Furosemide 40mg tab ORAL SCH (09:54)
[2017-06-10] MEDS: Lisinopril 20mg tab ORAL SCH (09:55)
[2017-06-10] MEDS: Heparin 5000 units/ml inj SUBQ SCH ×2 (09:58→20:04)
--- NOTE | 2017-06-10 10:59 | Cardiac Electrophysiology PN ---
Assessment/Plan Assessment/Plan 1. Accelerated hypertension. On Lasix 40 mg daily, lisinopril 40 mg daily, Procardia XL 90 mg daily and p.r.n. clonidine. 2. Hyperlipidemia, on Lipitor. 3. Diabetes, on metformin and insulin. 4. Diabetic foot ulcer, on IV antibiotics per ID Further evaluation by Dr. Rodrigues. CHARLEY RN OK to DC from cardiac stand point Subjective Subjective Getting iv Abx. .Comfortable. Placement pending Objective Last 24 Hour Vital Signs Date Time Temp Pulse Resp B/P (MAP) Pulse Ox O2 Delivery O2 Flow Rate FiO2 06/10/17 09:57 98.6 06/10/17 09:56 80 116/72 06/10/17 09:55 116/72 06/10/17 08:00 98.6 80 18 116/72 95 98.6 06/10/17 06:00 97.5 06/10/17 05:29 97.5 06/10/17 04:00 98 Room Air 06/10/17 04:00 97.5 78 19 121/69 98 97.5 06/10/17 00:42 97.9 06/10/17 00:00 93 Room Air 06/10/17 00:00 97.9 65 20 129/74 93 Room Air 97.9 06/09/17 20:29 97.6 06/09/17 20:00 98.1 78 17 123/84 96 Room Air 98.1 06/09/17 20:00 96 Room Air 06/09/17 15:55 97.6 70 18 102/63 97 Room Air 97.6 06/09/17 12:00 67 06/09/17 12:00 97.9 71 19 103/73 93 Room Air 97.9 Intake and Output 06/09/17 06/10/17 19:00 07:00 Intake Total 540 ml 1450 ml Output Total 800 ml Balance 540 ml 650 ml Intake Oral 360 ml 600 ml IV Total 180 ml 850 ml Output Urine Total 800 ml # Voids 1 Laboratory Tests Test 06/10/17 05:15 White Blood Count 8.3 K/UL (4.8-10.8) Red Blood Count 4.56 M/UL (4.70-6.10) L Hemoglobin 13.8 G/DL (14.2-18.0) L Hematocrit 40.5 % (42.0-52.0) L Mean Corpuscular Volume 89 FL (80-99) Mean Corpuscular Hemoglobin 30.2 PG (27.0-31.0) Mean Corpuscular Hemoglobin Concent 34.1 G/DL (32.0-36.0) Red Cell Distribution Width 11.5 % (11.6-14.8) L Platelet Count 287 K/UL (150-450) Mean Platelet Volume 5.3 FL (6.5-10.1) L Neutrophils (%) (Auto) 54.1 % (45.0-75.0) Lymphocytes (%) (Auto) 30.4 % (20.0-45.0) Monocytes (%) (Auto) 8.3 % (1.0-10.0) Eosinophils (%) (Auto) 6.4 % (0.0-3.0) H Basophils (%) (Auto) 0.9 % (0.0-2.0) Sodium Level 135 MMOL/L (136-145) L Potassium Level 3.5 MMOL/L (3.5-5.1) Chloride Level 98 MMOL/L (98-107) Carbon Dioxide Level 29 MMOL/L (21-32) Anion Gap 8 mmol/L (5-15) Blood Urea Nitrogen 11 mg/dL (7-18) Creatinine 0.8 MG/DL (0.55-1.30) Estimat Glomerular Filtration Rate > 60 mL/min (>60) Glucose Level 116 MG/DL (74-106) H Calcium Level 8.7 MG/DL (8.5-10.1) Objective HEAD AND NECK: No JVD. LUNGS: Clear. CARDIOVASCULAR: Regular S1 and S2 with no gallop or murmur. ABDOMEN: Soft. EXTREMITIES: Old Scar right knee. Right foot dressing on Keshawn Mejia MD Jun 10, 2017 10:59
[2017-06-10] MEDS: Vancomycin 1.5gm/D5W 250ml 250 ML IVPB SCH ×2 (11:37→22:36)
[2017-06-10] MEDS: Dakin's 0.125% Soln (Quarter Strength) 16oz TOPIC SCH (11:38)
[2017-06-10 12:00] VITALS: BP 135/91
--- NOTE | 2017-06-10 13:57 | General Progress Note ---
Assessment/Plan Problem List: (1) Skin abscess ICD Codes: L02.91 - Cutaneous abscess, unspecified SNOMED: 00029500 (2) Diabetic foot ulcer ICD Codes: E11.621 - Type 2 diabetes mellitus with foot ulcer; L97.509 - Non- pressure chronic ulcer of other part of unspecified foot with unspecified severity SNOMED: 364098840, 17747519 (3) Cellulitis ICD Codes: L03.90 - Cellulitis, unspecified SNOMED: 059872855 (4) CHF (congestive heart failure) ICD Codes: I50.9 - Heart failure, unspecified SNOMED: 73602629, 01975563 (5) Chronic pain ICD Codes: G89.29 - Other chronic pain SNOMED: 33307050 Status: stable, progressing, tolerating diet Assessment/Plan ot pt diet wound care abx cbc bmp am ltach eval Subjective Constitutional: Reports: weakness Allergies: Coded Allergies: NO KNOWN ALLERGIES (Unverified Allergy, Unknown, 02/08/15) All Systems: reviewed and negative except above Subjective sleepy calm Objective Last 24 Hour Vital Signs Date Time Temp Pulse Resp B/P (MAP) Pulse Ox O2 Delivery O2 Flow Rate FiO2 06/10/17 12:00 97.0 78 19 135/91 95 97.0 06/10/17 10:27 98.6 06/10/17 09:57 98.6 06/10/17 09:56 80 116/72 06/10/17 09:55 116/72 06/10/17 08:00 98.6 80 18 116/72 95 98.6 06/10/17 05:29 97.5 06/10/17 04:00 98 Room Air 06/10/17 04:00 97.5 78 19 121/69 98 97.5 06/10/17 00:42 97.9 06/10/17 00:00 93 Room Air 06/10/17 00:00 97.9 65 20 129/74 93 Room Air 97.9 06/09/17 20:29 97.6 06/09/17 20:00 98.1 78 17 123/84 96 Room Air 98.1 06/09/17 20:00 96 Room Air 06/09/17 15:55 97.6 70 18 102/63 97 Room Air 97.6 Intake and Output 06/09/17 06/10/17 19:00 07:00 Intake Total 540 ml 1450 ml Output Total 800 ml Balance 540 ml 650 ml Intake Oral 360 ml 600 ml IV Total 180 ml 850 ml Output Urine Total 800 ml # Voids 1 Laboratory Tests 06/10/17 05:15: White Blood Count 8.3, Red Blood Count 4.56L, Hemoglobin 13.8L, Hematocrit 40.5L , Mean Corpuscular Volume 89, Mean Corpuscular Hemoglobin 30.2, Mean Corpuscular Hemoglobin Concent 34.1, Red Cell Distribution Width 11.5L, Platelet Count 287, Mean Platelet Volume 5.3L, Neutrophils (%) (Auto) 54.1, Lymphocytes (%) (Auto) 30.4, Monocytes (%) (Auto) 8.3, Eosinophils (%) (Auto) 6.4H, Basophils (%) (Auto) 0.9, Sodium Level 135L, Potassium Level 3.5, Chloride Level 98, Carbon Dioxide Level 29, Anion Gap 8, Blood Urea Nitrogen 11 , Creatinine 0.8, Estimat Glomerular Filtration Rate > 60, Glucose Level 116H, Calcium Level 8.7 Height (Feet): 5 Height (Inches): 11.00 Weight (Pounds): 254 General Appearance: lethargic EENT: normal ENT inspection Neck: normal alignment Cardiovascular: normal peripheral pulses, normal rate, regular rhythm Respiratory/Chest: chest wall non-tender, lungs clear, normal breath sounds Abdomen: normal bowel sounds, non tender, soft Extremities: normal inspection Edema: no edema noted Arm (L), no edema noted Arm (R), no edema noted Leg (L), no edema noted Leg (R), no edema noted Pedal (L), no edema noted Pedal (R), no edema noted Generalized Neurologic: motor weakness Skin: normal pigmentation, warm/dry ROXANA MUSE Jun 10, 2017 13:57
[2017-06-10 16:00] VITALS: BP 119/70
[2017-06-10] MEDS ORDERED: NS 275ml ONE (16:06)
[2017-06-10] MEDS ORDERED: D5NS 1000ml IV ONE (16:06)
[2017-06-10] MEDS ORDERED: Tubing IV Secondary IV ONE (16:06)
[2017-06-10 20:00] VITALS: BP 111/72
--- NOTE | 2017-06-10 20:01 | Infectious Diseases Prog Note ---
Assessment/Plan Assessment/Plan ASSESSMENT: The patient is a 56-year-old male with Right foot plantar wound edema Wnd Cx : MRSA SP I/D by Pod, Clinically no evid of osteo as per Pod Diabetes CHF Schizophrenia Hypertension PLAN: cont pt on IV Vanco d# 6 / 7 , upon DC will change to ( Bactrim ) to complete the course , / SP Rocephin D#3 Monitor cultures (Wnd ) Monitor chest x-ray Subjective Allergies: Coded Allergies: NO KNOWN ALLERGIES (Unverified Allergy, Unknown, 02/08/15) Subjective comfortable Objective Vital Signs Last 24 Hour Vital Signs Date Time Temp Pulse Resp B/P (MAP) Pulse Ox O2 Delivery O2 Flow Rate FiO2 06/10/17 16:01 98.1 06/10/17 16:00 98.1 80 19 119/70 96 98.1 06/10/17 15:31 97.0 06/10/17 12:00 97.0 78 19 135/91 95 97.0 06/10/17 09:57 98.6 06/10/17 09:56 80 116/72 06/10/17 09:55 116/72 06/10/17 08:00 98.6 80 18 116/72 95 98.6 06/10/17 05:29 97.5 06/10/17 04:00 98 Room Air 06/10/17 04:00 97.5 78 19 121/69 98 97.5 06/10/17 00:42 97.9 06/10/17 00:00 93 Room Air 06/10/17 00:00 97.9 65 20 129/74 93 Room Air 97.9 06/09/17 20:29 97.6 Height (Feet): 5 Height (Inches): 11.00 Weight (Pounds): 254 HEENT: anicteric Respiratory/Chest: no respiratory distress Cardiovascular: regularly irregular Abdomen: no mass Laboratory Tests Test 06/10/17 05:15 White Blood Count 8.3 K/UL (4.8-10.8) Red Blood Count 4.56 M/UL (4.70-6.10) L Hemoglobin 13.8 G/DL (14.2-18.0) L Hematocrit 40.5 % (42.0-52.0) L Mean Corpuscular Volume 89 FL (80-99) Mean Corpuscular Hemoglobin 30.2 PG (27.0-31.0) Mean Corpuscular Hemoglobin Concent 34.1 G/DL (32.0-36.0) Red Cell Distribution Width 11.5 % (11.6-14.8) L Platelet Count 287 K/UL (150-450) Mean Platelet Volume 5.3 FL (6.5-10.1) L Neutrophils (%) (Auto) 54.1 % (45.0-75.0) Lymphocytes (%) (Auto) 30.4 % (20.0-45.0) Monocytes (%) (Auto) 8.3 % (1.0-10.0) Eosinophils (%) (Auto) 6.4 % (0.0-3.0) H Basophils (%) (Auto) 0.9 % (0.0-2.0) Sodium Level 135 MMOL/L (136-145) L Potassium Level 3.5 MMOL/L (3.5-5.1) Chloride Level 98 MMOL/L (98-107) Carbon Dioxide Level 29 MMOL/L (21-32) Anion Gap 8 mmol/L (5-15) Blood Urea Nitrogen 11 mg/dL (7-18) Creatinine 0.8 MG/DL (0.55-1.30) Estimat Glomerular Filtration Rate > 60 mL/min (>60) Glucose Level 116 MG/DL (74-106) H Calcium Level 8.7 MG/DL (8.5-10.1) Current Medications Medications (Trade) Dose Ordered Sig/Azar Route PRN Reason Start Time Stop Time Status Last Admin Dose Admin Acetaminophen (Tylenol) 650 mg Q8H PRN ORAL Fever/Headache/Mild Pain 06/09/17 15:30 07/05/17 15:29 Atorvastatin Calcium (Lipitor) 20 mg DAILY ORAL 06/10/17 09:00 07/05/17 08:59 06/10/17 09:54 Citalopram Hydrobromide (celeXA) 10 mg DAILY ORAL 06/10/17 09:00 07/05/17 08:59 06/10/17 09:52 Clonidine HCl (Catapres Tab) 0.1 mg Q6H PRN ORAL SBP > 170 06/09/17 15:30 07/09/17 15:29 Dextrose (Dextrose 50%) 25 ml STAT PRN IV HYPOGLYCEMIA 06/09/17 15:30 07/09/17 15:29 Dextrose (Dextrose 50%) 50 ml STAT PRN IV Hypoglycemia 06/09/17 15:30 07/09/17 15:29 Dextrose/Sodium Chloride 1,000 ml @ 60 mls/hr [id number] IV 06/09/17 15:30 07/05/17 15:29 06/10/17 09:52 Divalproex Sodium (Depakote) 250 mg DAILY ORAL 06/10/17 09:00 07/05/17 08:59 06/10/17 09:53 Folic Acid (Folate) 1 mg DAILY ORAL 06/10/17 09:00 07/05/17 08:59 06/10/17 09:53 Furosemide (Lasix) 40 mg DAILY ORAL 06/10/17 09:00 07/10/17 08:59 06/10/17 09:54 Gabapentin (Neurontin) 300 mg TID ORAL 06/09/17 18:00 07/05/17 08:59 06/10/17 17:51 Heparin Sodium (Porcine) (Heparin 5000 units/ml) 5,000 units EVERY 12 HOURS SUBQ 06/09/17 21:00 07/05/17 08:59 06/10/17 09:58 Insulin Aspart (NovoLOG) BEFORE MEALS AND HS SUBQ 06/09/17 16:30 07/05/17 06:29 06/10/17 17:52 Lisinopril (Prinivil) 40 mg DAILY ORAL 06/10/17 09:00 07/05/17 08:59 06/10/17 09:55 Metformin HCl (Glucophage) 1,000 mg BID ORAL 06/09/17 18:00 07/05/17 08:59 06/10/17 17:51 Morphine Sulfate (Morphine Sulfate) 2 mg Q4H PRN IVP moderate to severe pain 06/09/17 16:15 06/11/17 16:14 06/10/17 15:31 Nifedipine (Procardia XL) 90 mg DAILY ORAL 06/10/17 09:00 07/05/17 08:59 06/10/17 09:56 Sitagliptin Phosphate (Januvia) 100 mg DAILY ORAL 06/10/17 09:00 07/05/17 08:59 06/10/17 09:53 Sodium Hypochlorite (Dakin's Quarter Strength) 1 applic DAILY TOPIC 06/10/17 09:00 07/06/17 08:59 06/10/17 11:38 Vancomycin HCl (Vanco rx to dose) 1 ea DAILY PRN MISC Per rx protocol 06/09/17 15:45 07/09/17 15:44 Vancomycin HCl/ Dextrose 250 ml @ 125 mls/hr Q12HR@1100,2300 IVPB 06/09/17 23:00 06/11/17 23:33 06/10/17 11:37 Kt Zavaleta MD Jun 10, 2017 20:01
[2017-06-11] VITALS: BP 105/67
[2017-06-11] MEDS: D5NS 1,000 ML IV SCH ×2 (01:06→17:30)
[2017-06-11] MEDS: Morphine Sulfate 4mg/ml Inj IVP PRN ×3 (01:20→13:56)
--- NOTE | 2017-06-11 02:15 | Progress Note ---
DATE: 06/10/2017 NOTE: POOR AUDIO SUBJECTIVE: This is a 56-year-old male patient with diabetic foot ulcer. This patient continues to be confused and disorganized. His mood is labile. He has got no logical plan for his own self-care. that is the reason why . That is why, this patient has daily psychiatric consultation requested by his attending physician. He has mood lability, confusion, worsened by the stress of his medical illness. MENTAL STATUS EXAMINATION: This is a 56-year-old male with psychomotor agitation. Mood is irritable and agitated. Affect guarded and restricted. Intellect poor. Mood is labile . Motor activity, psychomotor agitation. Attention span is poor. Orientation x2. Speech is pressured. Thought process is disorganized and illogical. Insight and judgment is poor. DIAGNOSIS: Schizoaffective, bipolar type. PLAN: Continue treatment with psychotropic medications to stabilize his mood, reduce mood lability, and prevent any further decline in his cognition. An 18 to 20 minutes of supportive therapy provided. Chart was reviewed and discussed with staff. Seen and assessed in his room. Cyndi Mcghee M.D. DR: SOLEDAD JOB#: [id number] CC:
[2017-06-11 04:00] VITALS: BP 122/78
--- NOTE | 2017-06-11 05:15 | Consultation ---
DATE OF CONSULTATION: 06/11/2017 HISTORY OF PRESENT ILLNESS: The patient is a patient who is 56-year-old patient with diabetic foot ulcer and congestive heart failure. This patient has some confusion, disorganized thought process, and mood lability. He has got no logical plan for his own self-care, but because of his medical illness, his cognition has declined below baseline. He has been exhibiting increased mood lability and so that is why his attending physician has requested daily psychiatric consultation for this patient to be seen. MENTAL STATUS EXAMINATION: This is a 56-year-old male. Appearance is disheveled. Attitude, irritable and agitated. Affect, guarded and restricted. Thought process, disorganized and illogical. Denies any current suicidal or homicidal thoughts. Appearance is disheveled. Intellect poor. Mood, depressed and anxious. Motor activity, psychomotor retardation. Attention span is poor. Orientation x2. Speech is low volume and slurred. Thought process, disorganized. Thought content, paranoid delusions. Insight and judgment is poor. DIAGNOSIS: Bipolar 2. PLAN: Depakote 250 mg daily, Celexa 10 mg daily, and Neurontin 300 mg three times a day. A 18 to 20 minutes of supportive therapy provided. Seen and assessed in his room. Chart reviewed and discussed with staff. Cyndi Mcghee M.D. DR: JIAN JOB#: [id number] CC:
[2017-06-11] MEDS: NovoLOG Insulin Flexpen SUBQ SCH ×3 (05:36→16:30)
[2017-06-11 07:07] LABS: EOSINOPHILS % (AUTO) 5.2 % (0.0-3.0); HEMATOCRIT 40.2 % (42.0-52.0); HEMOGLOBIN 14.1 G/DL (14.2-18.0); LYMPHOCYTES % (AUTO) 26.5 % (20.0-45.0); MEAN CORPUSCULAR VOLUME 89 FL (80-99); MONOCYTES % (AUTO) 6.1 % (1.0-10.0); NEUTROPHILS % (AUTO) 61.3 % (45.0-75.0); PLATELET COUNT 270 K/UL (150-450); RED BLOOD COUNT 4.54 M/UL (4.70-6.10); RED CELL DISTRIBUTION WIDTH 11.5 % (11.6-14.8); WHITE BLOOD COUNT 9.2 K/UL (4.8-10.8)
[2017-06-11 07:08] LABS: ANION GAP 7 mmol/L (5-15); BLOOD UREA NITROGEN 12 mg/dL (7-18); CALCIUM 8.6 MG/DL (8.5-10.1); CARBON DIOXIDE 29 MMOL/L (21-32); CHLORIDE 101 MMOL/L (98-107); CREATININE 0.9 MG/DL (0.55-1.30); POTASSIUM 3.5 MMOL/L (3.5-5.1); SODIUM 137 MMOL/L (136-145)
[2017-06-11 08:17] VITALS: BP 118/70
--- NOTE | 2017-06-11 08:56 | Physician Query ---
--------- THIS DOCUMENT IS A PERMANENT PART OF THE MEDICAL RECORD --------- PLEASE COMPLETE THE FORM BEFORE SIGNING Dear MARY Ruggiero Date: 06/11/17 [employer] Name: Eva Norton [employer] Phone No: [phone] Exercise your independent professional judgment when responding to query. Questions asked do not imply particular answer is desired or expected. We greatly appreciate your clarification on this issue. Because there is documentation in the medical record of "Debridement", clarification is needed. Please document whether this is "Excisional" or " Nonexcisional" Debridement of the wound, infection or burn. [yes] Excisional: The removal of necrotic, devitalized tissue or slough by means of cutting away of tissue (the use of scissors, scalpel or curette are common). [] Nonexcisional: The removal of necrotic, devitalized tissue or slough by means of flushing, brushing or washing (irrigating). Documentation should also include the "depth" of tissue removed: [] skin [] fascia [yes] muscle [] bone. Please document the appropriate type of Debridement on the Progress Notes or on this form or as an addendum to the patient's record. (Sign and date all documents). Dr. MARY DAVIS Date/Time MTDD
[2017-06-11] MEDS: Citalopram Hydrobromide 10mg Tab ORAL SCH (09:28)
[2017-06-11] MEDS: Furosemide 40mg tab ORAL SCH (09:28)
[2017-06-11] MEDS: Lisinopril 20mg tab ORAL SCH (09:28)
[2017-06-11] MEDS: metFORMIN 500mg tab ORAL SCH ×2 (09:29→17:47)
[2017-06-11] MEDS: Heparin 5000 units/ml inj SUBQ SCH (09:31)
[2017-06-11] MEDS: Dakin's 0.125% Soln (Quarter Strength) 16oz TOPIC SCH (09:32)
[2017-06-11] MEDS: Vancomycin 1.5gm/D5W 250ml 250 ML IVPB SCH (11:06)
[2017-06-11 11:48] VITALS: BP 139/77
--- NOTE | 2017-06-11 15:20 | General Progress Note ---
Assessment/Plan Problem List: (1) Skin abscess ICD Codes: L02.91 - Cutaneous abscess, unspecified SNOMED: 04007557 (2) Diabetic foot ulcer ICD Codes: E11.621 - Type 2 diabetes mellitus with foot ulcer; L97.509 - Non- pressure chronic ulcer of other part of unspecified foot with unspecified severity SNOMED: 130236327, 13050932 (3) Cellulitis ICD Codes: L03.90 - Cellulitis, unspecified SNOMED: 701693435 (4) CHF (congestive heart failure) ICD Codes: I50.9 - Heart failure, unspecified SNOMED: 40921578, 36648087 (5) Chronic pain ICD Codes: G89.29 - Other chronic pain SNOMED: 19471880 Status: stable, progressing, tolerating diet Assessment/Plan ot pt diet wound care abx dc to ltach Subjective Constitutional: Reports: weakness Allergies: Coded Allergies: NO KNOWN ALLERGIES (Unverified Allergy, Unknown, 02/08/15) All Systems: reviewed and negative except above Subjective sleepy calm Objective Last 24 Hour Vital Signs Date Time Temp Pulse Resp B/P (MAP) Pulse Ox O2 Delivery O2 Flow Rate FiO2 06/11/17 14:26 98.2 06/11/17 13:56 98.2 06/11/17 11:48 98.2 78 19 139/77 95 98.2 06/11/17 09:30 97.5 06/11/17 09:29 77 118/70 06/11/17 09:28 118/70 06/11/17 08:17 97.5 77 20 118/70 95 97.5 06/11/17 04:00 97.2 76 16 122/78 94 97.2 06/11/17 01:20 97.7 06/11/17 00:00 97.7 84 15 105/67 94 97.7 06/10/17 20:09 98.1 06/10/17 20:00 97.7 80 15 111/72 97.7 06/10/17 16:00 98.1 80 19 119/70 96 98.1 06/10/17 15:31 97.0 Intake and Output 06/10/17 06/11/17 19:00 07:00 Intake Total 480 ml 1880 ml Output Total 1100 ml 1600 ml Balance -620 ml 280 ml Intake Oral 420 ml 1400 ml IV Total 60 ml 480 ml Output Urine Total 1100 ml 1600 ml Laboratory Tests 06/11/17 04:55: White Blood Count 9.2, Red Blood Count 4.54L, Hemoglobin 14.1L, Hematocrit 40.2L , Mean Corpuscular Volume 89, Mean Corpuscular Hemoglobin 31.1H, Mean Corpuscular Hemoglobin Concent 35.1, Red Cell Distribution Width 11.5L, Platelet Count 270, Mean Platelet Volume 5.3L, Neutrophils (%) (Auto) 61.3, Lymphocytes (%) (Auto) 26.5, Monocytes (%) (Auto) 6.1, Eosinophils (%) (Auto) 5.2H, Basophils (%) (Auto) 1.0, Sodium Level 137, Potassium Level 3.5, Chloride Level 101, Carbon Dioxide Level 29, Anion Gap 7, Blood Urea Nitrogen 12, Creatinine 0.9, Estimat Glomerular Filtration Rate > 60, Glucose Level 112H, Calcium Level 8.6 Height (Feet): 5 Height (Inches): 11.00 Weight (Pounds): 255 General Appearance: alert EENT: normal ENT inspection Neck: normal alignment Cardiovascular: normal peripheral pulses, normal rate, regular rhythm Respiratory/Chest: chest wall non-tender, lungs clear, normal breath sounds Abdomen: normal bowel sounds, non tender, soft Extremities: normal inspection Edema: no edema noted Arm (L), no edema noted Arm (R), no edema noted Leg (L), no edema noted Leg (R), no edema noted Pedal (L), no edema noted Pedal (R), no edema noted Generalized Neurologic: motor weakness Skin: normal pigmentation, warm/dry ROXANA MUSE Jun 11, 2017 15:20
--- NOTE | 2017-06-11 15:27 | Cardiac Electrophysiology PN ---
Assessment/Plan Assessment/Plan 1. Accelerated hypertension. On Lasix 40 mg daily, lisinopril 40 mg daily, Procardia XL 90 mg daily and p.r.n. clonidine. 2. Hyperlipidemia, on Lipitor. 3. Diabetes, on metformin and insulin. 4. Diabetic foot ulcer, on IV antibiotics per ID and Dr. Rodrigues. CHARLEY RN Subjective Subjective Getting iv Abx. .Comfortable. DC planning in progress. Objective Last 24 Hour Vital Signs Date Time Temp Pulse Resp B/P (MAP) Pulse Ox O2 Delivery O2 Flow Rate FiO2 06/11/17 14:26 98.2 06/11/17 13:56 98.2 06/11/17 11:48 98.2 78 19 139/77 95 98.2 06/11/17 09:30 97.5 06/11/17 09:29 77 118/70 06/11/17 09:28 118/70 06/11/17 08:17 97.5 77 20 118/70 95 97.5 06/11/17 04:00 97.2 76 16 122/78 94 97.2 06/11/17 01:20 97.7 06/11/17 00:00 97.7 84 15 105/67 94 97.7 06/10/17 20:09 98.1 06/10/17 20:00 97.7 80 15 111/72 97.7 06/10/17 16:00 98.1 80 19 119/70 96 98.1 06/10/17 15:31 97.0 Intake and Output 06/10/17 06/11/17 19:00 07:00 Intake Total 480 ml 1880 ml Output Total 1100 ml 1600 ml Balance -620 ml 280 ml Intake Oral 420 ml 1400 ml IV Total 60 ml 480 ml Output Urine Total 1100 ml 1600 ml Laboratory Tests Test 06/11/17 04:55 White Blood Count 9.2 K/UL (4.8-10.8) Red Blood Count 4.54 M/UL (4.70-6.10) L Hemoglobin 14.1 G/DL (14.2-18.0) L Hematocrit 40.2 % (42.0-52.0) L Mean Corpuscular Volume 89 FL (80-99) Mean Corpuscular Hemoglobin 31.1 PG (27.0-31.0) H Mean Corpuscular Hemoglobin Concent 35.1 G/DL (32.0-36.0) Red Cell Distribution Width 11.5 % (11.6-14.8) L Platelet Count 270 K/UL (150-450) Mean Platelet Volume 5.3 FL (6.5-10.1) L Neutrophils (%) (Auto) 61.3 % (45.0-75.0) Lymphocytes (%) (Auto) 26.5 % (20.0-45.0) Monocytes (%) (Auto) 6.1 % (1.0-10.0) Eosinophils (%) (Auto) 5.2 % (0.0-3.0) H Basophils (%) (Auto) 1.0 % (0.0-2.0) Sodium Level 137 MMOL/L (136-145) Potassium Level 3.5 MMOL/L (3.5-5.1) Chloride Level 101 MMOL/L (98-107) Carbon Dioxide Level 29 MMOL/L (21-32) Anion Gap 7 mmol/L (5-15) Blood Urea Nitrogen 12 mg/dL (7-18) Creatinine 0.9 MG/DL (0.55-1.30) Estimat Glomerular Filtration Rate > 60 mL/min (>60) Glucose Level 112 MG/DL (74-106) H Calcium Level 8.6 MG/DL (8.5-10.1) Objective HEAD AND NECK: No JVD. LUNGS: Clear. CARDIOVASCULAR: Regular S1 and S2 with no gallop or murmur. ABDOMEN: Soft. EXTREMITIES: [place] right knee. Right foot dressing on Keshawn Mejia MD Jun 11, 2017 15:27
[2017-06-11 15:43] VITALS: BP 113/64
[2017-06-11] MEDS ORDERED: VANCOMYCIN1 GM/2502 IVPB ×2 (15:56→16:15)
[2017-06-11] MEDS ORDERED: CATAPRES0.1 MG ORAL (15:59)
[2017-06-11] MEDS ORDERED: FUROSEMIDE40 MG ORAL (16:00)
[2017-06-11] MEDS ORDERED: HEPARIN SO5000 UNIT2 SUBQ (16:01)
[2017-06-11] MEDS ORDERED: NOVOLOG100 UNIT/3 SUBQ (16:03)
[2017-06-11] MEDS ORDERED: MORPHINE 22 MG/1 ML IV (16:05)
[2017-06-11] MEDS ORDERED: PROCARDIA XL90 M4 ORAL (16:07)
[2017-06-11] MEDS ORDERED: DAKIN'S1 APPLI1 TOPIC (16:10)
[2017-06-11] MEDS ORDERED: ACETAMINOPHEN325 M1 ORAL (16:12)
--- NOTE | 2017-06-13 12:12 | Discharge Summary ---
Discharge Summary Discharge Summary Discharge Summary DATE OF ADMISSION: 06/04/2017 DATE OF DISCHARGE: 02/10/2018 CONSULTANTS: Dr. Keshawn Rodrigues BRIEF HOSPITAL COURSE: Patient is a 56-year-old male from [facility], presented via EMS due to right foot plantar wound which was getting worse and more swollen. Patient noticed an area on his foot that has become increasingly swollen and painful. She had a history of abscess in the past. She has medical history significant for schizophrenia, heart failure, diabetes, hypertension. On evaluation at ED, he was noted to have an ulcer to the plantar aspect of his right foot consistent with diabetic foot ulcer with infection. Laboratory testing was unremarkable, WBC was 10, EKG was in normal sinus rhythm. He was admitted for evaluation of right foot wound with edema. He underwent podiatry evaluation, wound was debrided by Dr. Rodrigues. He underwent excisional debridement to the layer of the muscle, he was given wound care. He was followed by infectious disease specialist and was given IV Rocephin and vancomycin. Wound culture showed growth of MRSA. Clinically there was no evidence of osteomyelitis per podiatry. Rocephin was discontinued and was given vancomycin. He had hypertension, medications were titrated. He was given Lasix 40 mg, lisinopril 40 mg, Procardia XL 90 mg. He was given Lipitor. Psychiatric evaluation was done. He was diagnosed with bipolar type II disorder. He was given Depakote 250 mg, Celexa 10 mg, Neurontin 300 mg 3 times a day. He was eventually transferred to a long-term acute care facility (LTAC). 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 DISPOSITION: Patient was transferred to [facility] DISCHARGE MEDICATIONS: Refer to Discharge Medication List. I have been assigned to dictate discharge summary on this account, and I was not involved in the patient's management. Alice Cordoba NP Jun 13, 2017 12:12
== END 2017-06-11 18:17 | DRG 580 ==
LOC: EDBD 15:32 → EMR 17:48 → 2E 18:06 → EDBEDREQ 18:37 → 2E 23:14 → 4W 06-09 14:52
PROC: 0KBV0ZZ Excision of Right Foot Muscle, Open Approach (ICD-10-PCS; principal; 2017-06-05)
DX: L03.115 Cellulitis of right lower limb (principal); F31.81 Bipolar II disorder; E11.621 Type 2 diabetes mellitus with foot ulcer; L97.519 Non-pressure chronic ulcer of other part of right foot with unspecified severity; E11.40 Type 2 diabetes mellitus with diabetic neuropathy, unspecified; Z79.4 Long term (current) use of insulin; E78.5 Hyperlipidemia, unspecified; I10 Essential (primary) hypertension; I50.9 Heart failure, unspecified; B95.62 Methicillin resistant Staphylococcus aureus infection as the cause of diseases classified elsewhere; M21.70 Unequal limb length (acquired), unspecified site; F25.0 Schizoaffective disorder, bipolar type; Z95.0 Presence of cardiac pacemaker
CPT/HCPCS: 36415; 71045; 80048; 80053; 80061; 80202; 81003; 82550; 82553; 82962; 83605; 83735; 83880; 84100; 84484; 85025; 85651; 86140; 86850; 86900; 86901; 87040; 87070; 87081; 87181; 87205; 93005; 93306; 97803; 99285; J1815; J8499

== ENCOUNTER 2018-12-09 13:35 | Inpatient (IN) | payer MEDICARE, MEDICAID ==
[~2018-12-09] VITALS: Ht 180.3 cm; Wt 120.4 kg
[~2018-12-09 13:35] MED LIST changes: +ACETAMINOPHEN325 M1 ORAL; +ADALAT20 MG ORAL; +ATORVASTATIN CA20 MG; +CATAPRES0.1 MG ORAL; +CITALOPRAM HBR10 M1 ORAL; +DAKIN'S1 APPLI1 TOPIC; +DIVALPROEX SOD250 MG ORAL; +FOLIC ACID1 MG ORAL; +FUROSEMIDE40 MG ORAL; +GABAPENTIN300 MG; +HEPARIN SO5000 UNIT2 SUBQ; +JANUVIA100 MG; +JANUVIA25 MG ORAL; +LASIX20 M1 ORAL; +LISINOPRIL40 MG ORAL; +METFORMIN HCL1000 M1; +MORPHINE 22 MG/1 ML IV; +NIFEDIPINE ER60 M3; +NOVOLOG100 UNIT/3 SUBQ; +PROCARDIA XL90 M4 ORAL; +RISPERDAL2 MG ORAL; +RISPERIDONE3 MG ORAL; +TYLENOL EXTRA500 MG ORAL; +VANCOMYCIN1 GM/2502 IVPB
--- NOTE | 2018-12-09 13:47 | NUR ---
ED Nurse Note: Pt LORENZA from [facility] due to R lower leg edema and redness x 1 month, non-pitting +1 edema. Also 2 openning wounds noted on R sole, white patch noted x 1 month. Please see picture uploaded. Pain 8 at this time. AOOx4, tachycardic upon arrival, ERMD aware. Pt has hx of DM. Will cont to monitor. Addendum: 12/09/18 at 1428 by [facility] ED Nurse Note: Pt LORENZA from [facility] due to R lower leg edema and redness x 1 month, non-pitting +1 edema. Also 2 openning wounds noted on R sole x 1 month, no discharge. Please see pictures uploaded. Pain 810 at this time. AOOx4, tachycardic upon arrival, ERMD aware. Pt has hx of DM. Will cont to monitor.
--- NOTE | 2018-12-09 13:55 | Emergency Room Report ---
History of Present Illness General Chief Complaint: Edema Source: Patient Present Illness HPI Disclaimer: Please note that this report is being documented using DRAGON technology. This can lead to erroneous entry secondary to incorrect interpretation by the dictating instrument. HPI: This is a 58-year-old male with a history of insulin-dependent diabetes, hypertension, hyperlipidemia, schizophrenia and previous history of diabetic foot ulcers growing MRSA presents for evaluation of lower extremity swelling. Patient states his right lower extremity has been swollen from the knee down for approximately 1 month however over the past week it is gotten significantly worse. He notes 2 ulcers opening on the sole of his foot as well as redness spreading over his foot and up his leg. He notes pain, warmth but denies any purulent drainage. Denies bleeding or recent injury. Denies systemic symptoms such as fever, chills, vomiting, diarrhea, cough, chest pain, shortness of breath or abdominal pain. He did grow MRSA last year with a similar presentation. PMH: Hypertension, hyperlipidemia, obesity, schizophrenia, diabetes PSH: Right knee replacement x3 with fusion Allergies: Denies Social Hx: Current smoker, denies alcohol or drug abuse Allergies: Coded Allergies: NO KNOWN ALLERGIES (Unverified Allergy, Unknown, 02/08/15) Nursing Documentation-PMH Past Medical History: No History, Except For Hx Hypertension: Yes Hx Diabetes: Yes Review of Systems All Other Systems: negative except mentioned in HPI Physical Exam Vital Signs Date Time Temp Pulse Resp B/P (MAP) Pulse Ox O2 Delivery O2 Flow Rate FiO2 12/09/18 13:37 98.2 115 20 132/75 (94) 95 Room Air General: Awake and alert, no acute distress HEENT: NC/AT. EOMI. Cardiovascular: Tachycardic. S1 and S2 normal. No murmur appreciated Resp: Normal work of breathing. No cough, wheezing or crackles appreciated Abdomen: Abdomen is soft, nondistended. Nontender. Obese Skin: Erythematous and warm to the touch from the right knee distally in the right lower extremity. There are 2 superficial ulcers over the plantar surface of the right foot over the MTP joints 2 and 4. Mild purulence on the second joint. Warm to the touch. No bleeding. MSK: Normal tone and bulk. Moving all extremities. No obvious deformity. Neuro: Awake and alert. Mentating appropriately. Mild decreased sensation over the feet bilaterally. Procedures Critical Care Time Critical Care Time Total critical care time: Approximately 31 minutes Due to a high probability of clinically significant, life threatening deterioration, the patient required the highest level of preparedness to intervene emergently and I personally spent this critical care time directly and personally managing the patient. This critical care time included obtaining a history, examining the patient, pulse oximetry, ordering and reviewing studies , ordering treatments, evaluating response to treatment and updating management plan as needed, frequent reassessment and discussion with other providers as well as arranging for ultimate disposition. This critical to care time was performed to assess and manage the high probability of life-threatening deterioration that could result in multiorgan failure. This critical care time is separate from the separately billable procedures and treating other patients. Medical Decision Making Diagnostic Impression: Primary Impression: Cellulitis Additional Impressions: Foot ulcer Dehydration Hyponatremia Hypomagnesemia Sepsis ER Course Is a 58-year-old male with history of diabetes presenting for evaluation of lower extremity swelling and to foot ulcers. Concern for cellulitis and possible bony infiltrate at this time. Will obtain an x-ray, blood cultures, start IV fluids, broad infectious labs and antibiotics with vancomycin and ceftriaxone as the patient has grown MRSA on previous admissions. He will require admission. I have updated his PMD, Dr. Felix, who will be the admitting physician. Laboratory Tests Test 12/09/18 14:05 White Blood Count 16.0 K/UL (4.8-10.8) H Red Blood Count 4.04 M/UL (4.70-6.10) L Hemoglobin 12.2 G/DL (14.2-18.0) L Hematocrit 35.2 % (42.0-52.0) L Mean Corpuscular Volume 87 FL (80-99) Mean Corpuscular Hemoglobin 30.2 PG (27.0-31.0) Mean Corpuscular Hemoglobin Concent 34.7 G/DL (32.0-36.0) Red Cell Distribution Width 10.9 % (11.6-14.8) L Platelet Count 394 K/UL (150-450) Mean Platelet Volume 5.1 FL (6.5-10.1) L Neutrophils (%) (Auto) 78.9 % (45.0-75.0) H Lymphocytes (%) (Auto) 12.2 % (20.0-45.0) L Monocytes (%) (Auto) 7.5 % (1.0-10.0) Eosinophils (%) (Auto) 0.6 % (0.0-3.0) Basophils (%) (Auto) 0.8 % (0.0-2.0) Sodium Level 122 MMOL/L (136-145) L Potassium Level 4.0 MMOL/L (3.5-5.1) Chloride Level 88 MMOL/L (98-107) L Carbon Dioxide Level 23 MMOL/L (21-32) Anion Gap 11 mmol/L (5-15) Blood Urea Nitrogen 9 mg/dL (7-18) Creatinine 1.2 MG/DL (0.55-1.30) Estimate Glomerular Filtration Rate > 60 mL/min (>60) Glucose Level 268 MG/DL (74-106) H Calcium Level 9.5 MG/DL (8.5-10.1) Total Bilirubin 0.4 MG/DL (0.2-1.0) Aspartate Amino Transferase (AST) 9 U/L (15-37) L Alanine Aminotransferase (ALT) 17 U/L (12-78) Alkaline Phosphatase 75 U/L (46-116) Total Protein 7.5 G/DL (6.4-8.2) Albumin 2.9 G/DL (3.4-5.0) L Globulin 4.6 g/dL Albumin/Globulin Ratio 0.6 (1.0-2.7) L EKG Diagnostic Results EKG Time: 15:30 Rate: tachycardiac Rhythm: NSR ST Segments: no acute changes Other Impression Sinus tachycardia, normal axis, normal intervals, no ST segment changes. Rhythm Strip Diag. Results Rhythm Strip Time: 15:30 EP Interpretation: yes Rate: 100s Rhythm: NSR, no PVC's, no ectopy Other X-Ray Diagnostic Results Other X-Ray Diagnostic Results : X-Ray ordered: Right foot # of Views/Limited Vs Complete: 3 View Indication: Swelling PA Xray: Interpretation reviewed Interpretation: no dislocation, no fractures Impression: Other - Soft tissue swelling. No evidence of osteomyelitis, fracture or dislocation Electronically Signed by: Electronically signed by Dr. Jimmie Almaraz Reevaluation Time: 14:46 Last Vital Signs Date Time Temp Pulse Resp B/P (MAP) Pulse Ox O2 Delivery O2 Flow Rate FiO2 10/8/19 13:37 98.2 115 20 132/75 (94) 95 Room Air Reevaluation Impression Labs show an elevated white count consistent with cellulitis. Also show hyponatremia and hypochloremia consistent from dehydration. He is receiving IV fluids. He remains slightly tachycardic and now meets sepsis criteria given his tachycardia, elevated white count and source of infection. Blood cultures are already sent. Will send a lactate and bring the patient up to 30 cc/kg fluid bolus. X-ray shows no evidence of fracture, dislocation, osteomyelitis but does show soft tissue swelling consistent with a cellulitis. Will require telemetry for persistent tachycardia. 1530: Labs show hypomagnesemia which we will replete. Lactate elevated at 3.8 and the patient is receiving his 30 cc/kg sepsis fluid bolus. EKG does not show any evidence of ischemia. He remains slightly tachycardic with a rate between 100-105 bpm. Will admit to telemetry for further management. Dr. Felix was updated on lab results, imaging results, and treatment plan Disposition: ADMITTED INPATIENT Condition: Serious Jimmie Almaraz MD Dec 09, 2018 13:55
[2018-12-09] MEDS ORDERED: cefTRIAXone 1 GM in NS 55 ML IVPB ONE (14:00)
[2018-12-09] MEDS ORDERED: Vancomycin 1.5 GM in NS 275 ML IVPB ONE (14:00)
[2018-12-09 14:11] LABS: BASOPHILS % (AUTO) 0.8 % (0.0-2.0); EOSINOPHILS % (AUTO) 0.6 % (0.0-3.0); HEMATOCRIT 35.2 % (42.0-52.0); HEMOGLOBIN 12.2 G/DL (14.2-18.0); LYMPHOCYTES % (AUTO) 12.2 % (20.0-45.0); MEAN CORPUSCULAR VOLUME 87 FL (80-99); MONOCYTES % (AUTO) 7.5 % (1.0-10.0); NEUTROPHILS % (AUTO) 78.9 % (45.0-75.0); PLATELET COUNT 394 K/UL (150-450); RED BLOOD COUNT 4.04 M/UL (4.70-6.10); RED CELL DISTRIBUTION WIDTH 10.9 % (11.6-14.8)
[2018-12-09 14:13] VITALS: BP 130/70
[2018-12-09 14:24] LABS: ANION GAP 11 mmol/L (5-15); BLOOD UREA NITROGEN 9 mg/dL (7-18); CALCIUM 9.5 MG/DL (8.5-10.1); CARBON DIOXIDE 23 MMOL/L (21-32); CHLORIDE 88 MMOL/L (98-107); CREATININE 1.2 MG/DL (0.55-1.30); SODIUM 122 MMOL/L (136-145)
--- NOTE | 2018-12-09 14:27 | NUR ---
ED Nurse Note: X-ray at bedside for imaging.
[2018-12-09 14:29] LABS: ALANINE AMINOTRANSFERASE 17 U/L (12-78); ALBUMIN 2.9 G/DL (3.4-5.0); ALBUMIN/GLOBULIN RATIO 0.6 (1.0-2.7); ALKALINE PHOSPHATASE 75 U/L (46-116); ASPARTATE AMINO TRANSFERASE 9 U/L (15-37); BILIRUBIN,TOTAL 0.4 MG/DL (0.2-1.0)
[2018-12-09] MEDS ORDERED: SODIUM CHLORIDE IVLG ONE (14:45)
[2018-12-09] MEDS ORDERED: TRULICITY1.5 MG/0.5 SQ (14:57)
[2018-12-09 15:06] LABS: PHOSPHORUS 2.9 MG/DL (2.5-4.9)
--- NOTE | 2018-12-09 15:06 | NUR ---
ED Nurse Note: Pt urinated x 1 at this time, about 400ml, light key urine noted. Urine collected and sent to lab.
[2018-12-09 15:18] LABS: APPEARANCE,URINE CLEAR; BILIRUBIN, URINE NEGATIVE (NEGATIVE); COLOR,URINE PALE YELLOW; GLUCOSE, URINE (UA) 2+ (NEGATIVE); KETONES,URINE NEGATIVE (NEGATIVE); LEUKOCYTE ESTERASE ,URINE NEGATIVE (NEGATIVE); NITRITE,URINE NEGATIVE (NEGATIVE); PH,URINE 7 (4.5-8.0); PROTEIN,URINE 2+ (NEGATIVE); UROBILINOGEN,URINE NORMAL MG/DL (0.0-1.0)
--- NOTE | 2018-12-09 15:35 | Diagnostic Imaging Report ---
Indication: Pain, severe ulceration on the bottom of the foot Technique: 3 views right foot Comparison: 06/05/2017 Findings: Again demonstrated is a severe hammertoe deformity of the second through fifth digits. This limits evaluation of the phalanges. No acute fractures. No dislocations. No definite osseous erosions. The bones are osteoporotic. Surgical clips are seen in the distal leg. Impression: Limited exam, as described No definite findings to suggest acute osseous myelitis. Note, however, limited sensitivity of plain radiographs for such. Recommend MRI for better characterization if there is high clinical suspicion No acute bony trauma Deformities as described
[2018-12-09 16:02] VITALS: BP 143/79
--- NOTE | 2018-12-09 16:24 | Consultation ---
History of Present Illness General Date patient seen: Dec 09, 2018 Reason for Hospitalization: Edema Present Illness HPI This is a very pleasant 58-year-old male with multiple medical comorbidities who is currently in [facility] who presented to the emerge department at [facility] for evaluation of worsening right lower extremity cellulitis. Patient states that over the past month he is noted some edema and redness in the right lower extremity but over the past week it significantly worsened with pain tenderness edema erythema warmth. No drainage identified. Has noted to ulcers on the bottom of his foot for the past month. States he was seen by sash repairer in his care facility and was recommended to come in for evaluation. No nausea vomiting fever chills. Identified to have a leukocytosis and lactic acidosis. Admitted for care and management. Surgery called to evaluate and assist with care. Patient seen, patient evaluate, chart reviewed. Patient seen in the emergency department and identified to have significant cellulitis of her right lower extremities compared to the left. Patient states he has had 3 total knee replacements and skin flap in his right lower extremity prior. He said bone fusions as well. These were a while back and has been in recovery since. On examination no abscess identified. Allergies: Coded Allergies: NO KNOWN ALLERGIES (Unverified Allergy, Unknown, 02/08/15) Medication History Scheduled Acetaminophen* (Tylenol Extra Strength*), 650 MG ORAL Q8H, (Reported) Atorvastatin Calcium* (Atorvastatin Calcium*), DAILY, (Reported) Citalopram Hydrobromide* (Citalopram Hbr*), 10 MG ORAL DAILY, (Reported) Divalproex Sodium (Divalproex Sodium), 250 MG ORAL BID, (Reported) Dulaglutide (Trulicity), 1.5 MG SQ ONCE A WEEK, (Reported) Folic Acid* (Folic Acid*), 1 MG ORAL DAILY, (Reported) Furosemide* (Lasix*), 20 MG ORAL DAILY, (Reported) Furosemide* (Lasix*), 40 MG ORAL DAILY, (Reported) Gabapentin* (Gabapentin*), TID, (Reported) Heparin Sod (Porcine) (Heparin Sodium*), 5,000 UNITS SUBQ EVERY 12 HOURS, ( Reported) Insulin Aspart* (Novolog*), 0 SUBQ AC+HS, (Reported) Lisinopril* (Lisinopril*), 40 MG ORAL DAILY, (Reported) Metformin Hcl* (Metformin Hcl*), BID, (Reported) Nifedipine Er* (Nifedipine Er*), DAILY, (Reported) Nifedipine Xl* (Procardia Xl*), 90 MG ORAL DAILY, (Reported) Risperidone (Risperidone), 3 MG ORAL BID, (Reported) Sitagliptin (Januvia), DAILY, (Reported) Sodium Hypochlorite (Dakin's), 1 APPLIC TOPIC DAILY, (Reported) Vancomycin Hcl/D5w (Vancomycin-D5w 1 G/250 Ml), 1.5 GM IVPB Q12HR, (Reported) Vancomycin Hcl/D5w (Vancomycin-D5w 1 G/250 Ml), 1.5 GM IVPB Q12HR, (Reported) Scheduled PRN Acetaminophen* (Acetaminophen 325MG Tablet*), 650 MG ORAL Q8HR PRN for Prn Headache/Temp > 101, (Reported) Clonidine Hcl* (Catapres*), 0.1 MG ORAL EVERY 6 HOURS PRN for prn, (Reported) Morphine Sulfate* (Morphine Sulfate*), 2 MG IV Q4HR PRN for Moderate Pain (Pain Scale 4-6), (Reported) Patient History History Provided By: Patient, Medical Record, PMD Healthcare decision maker Resuscitation status Advanced Directive on File Past Medical/Surgical History Past Medical/Surgical History: (1) Paronychia of finger of right hand (2) Ankle sprain (3) Drug-seeking behavior (4) Lip abscess (5) Chronic pain (6) Skin abscess (7) Dehydration (8) Hypomagnesemia (9) Cellulitis (10) Hyponatremia (11) Foot ulcer (12) Sepsis Review of Systems Review of Symptoms General ROS: no weight loss or fever Psychological ROS: no depression or mood changes, no memory loss Ophthalmic ROS: no visual changes or eye irritation ENT ROS: no nasal congestion, hearing loss, dizziness Allergy and Immunology ROS: no allergic symptoms or urticaria Hematological and Lymphatic ROS: no swollen glands, unusual bleeding or bruising Endocrine ROS: no polyuria, polydipsia, weight changes, temperature intolerance Respiratory ROS: no cough, shortness of breath, or wheezing Cardiovascular ROS: no chest pain or dyspnea on exertion Gastrointestinal ROS: denies abdominal pain, bright red blood in stool. Musculoskeletal ROS: no myalgias or arthralgias Neurological ROS: no TIA or stroke symptoms Dermatological ROS: no new or changing skin lesions, rashes or pruritis Physical Exam Physical Exam General appearance: alert, cooperative, no distress, appears stated age Head: Normocephalic, without obvious abnormality, atraumatic Eyes: conjunctivae/corneas clear. PERRL, EOM's intact. Fundi benign Throat: Lips, mucosa, and tongue normal. Teeth and gums normal Neck: supple, symmetrical, trachea midline, no adenopathy, thyroid: not enlarged, symmetric, no tenderness/mass/nodules, no carotid bruit and no JVD Lungs: clear to auscultation bilaterally Heart: regular rate and rhythm, S1, S2 normal, no murmur, click, rub or gallop Abdomen: soft, non-tender. Bowel sounds normal. No masses, no organomegaly Extremities: extremities edema Pulses: 2+ and symmetric Skin: Skin color, texture, turgor normal. No rashes or lesions Neurologic: Grossly normal Last 24 Hour Vital Signs Date Time Temp Pulse Resp B/P (MAP) Pulse Ox O2 Delivery O2 Flow Rate FiO2 12/09/18 14:13 98.2 105 19 130/70 99 Room Air 12/09/18 14:13 105 19 Room Air 12/09/18 13:37 98.2 115 20 132/75 (94) 95 Room Air Laboratory Tests Test 12/09/18 14:05 12/09/18 14:50 12/09/18 15:00 White Blood Count 16.0 K/UL (4.8-10.8) H Red Blood Count 4.04 M/UL (4.70-6.10) L Hemoglobin 12.2 G/DL (14.2-18.0) L Hematocrit 35.2 % (42.0-52.0) L Mean Corpuscular Volume 87 FL (80-99) Mean Corpuscular Hemoglobin 30.2 PG (27.0-31.0) Mean Corpuscular Hemoglobin Concent 34.7 G/DL (32.0-36.0) Red Cell Distribution Width 10.9 % (11.6-14.8) L Platelet Count 394 K/UL (150-450) Mean Platelet Volume 5.1 FL (6.5-10.1) L Neutrophils (%) (Auto) 78.9 % (45.0-75.0) H Lymphocytes (%) (Auto) 12.2 % (20.0-45.0) L Monocytes (%) (Auto) 7.5 % (1.0-10.0) Eosinophils (%) (Auto) 0.6 % (0.0-3.0) Basophils (%) (Auto) 0.8 % (0.0-2.0) Sodium Level 122 MMOL/L (136-145) L Potassium Level 4.0 MMOL/L (3.5-5.1) Chloride Level 88 MMOL/L (98-107) L Carbon Dioxide Level 23 MMOL/L (21-32) Anion Gap 11 mmol/L (5-15) Blood Urea Nitrogen 9 mg/dL (7-18) Creatinine 1.2 MG/DL (0.55-1.30) Estimat Glomerular Filtration Rate > 60 mL/min (>60) Glucose Level 268 MG/DL (74-106) H Calcium Level 9.5 MG/DL (8.5-10.1) Phosphorus Level 2.9 MG/DL (2.5-4.9) Magnesium Level 1.3 MG/DL (1.8-2.4) L Total Bilirubin 0.4 MG/DL (0.2-1.0) Aspartate Amino Transf (AST/SGOT) 9 U/L (15-37) L Alanine Aminotransferase (ALT/SGPT) 17 U/L (12-78) Alkaline Phosphatase 75 U/L (46-116) Total Protein 7.5 G/DL (6.4-8.2) Albumin 2.9 G/DL (3.4-5.0) L Globulin 4.6 g/dL Albumin/Globulin Ratio 0.6 (1.0-2.7) L Lactic Acid Level 3.80 mmol/L (0.4-2.0) H Urine Color Pale yellow Urine Appearance Clear Urine pH 7 (4.5-8.0) Urine Specific [place] 1.005 (1.005-1.035) Urine Protein 2+ (NEGATIVE) H Urine Glucose (UA) 2+ (NEGATIVE) H Urine Ketones Negative (NEGATIVE) Urine Blood 1+ (NEGATIVE) H Urine Nitrite Negative (NEGATIVE) Urine Bilirubin Negative (NEGATIVE) Urine Urobilinogen Normal MG/DL (0.0-1.0) Urine Leukocyte Esterase Negative (NEGATIVE) Urine RBC 0-2 /HPF (0 - 0) H Urine WBC 0-2 /HPF (0 - 0) Urine Squamous Epithelial Cells Occasional /LPF Urine Bacteria None /HPF (NONE) Height (Feet): 5 Height (Inches): 11.00 Weight (Pounds): 266 Medications Current Medications Medications (Trade) Dose Ordered Sig/Azar Route PRN Reason Start Time Stop Time Status Last Admin Dose Admin Magnesium Sulfate 100 ml @ 100 mls/hr Q1H IVPB 12/09/18 15:30 12/09/18 17:29 12/09/18 15:26 Assessment/Plan Problem List: (1) Cellulitis Assessment & Plan: This is a 58-year-old male with worsening cellulitis of his right lower extremity. Patient with history of 3 total knee replacements as well as skin flaps for closure and bone infusions. States that this is been worsening over the past week but ongoing for about almost a month. Has 2 ulcers on the lateral midfoot. Leukocytosis, lactic acidosis, hyperglycemia. On examination no discrete abscess is identified. Mainly cellulitis. Tender warm with erythema Recommend IV antibiotics Leg elevation Plain films reviewed. We will plan for further imaging Podiatry eval for foot ulcers We will follow with recommendations thank you ICD Codes: L03.90 - Cellulitis, unspecified SNOMED: 874049581 (2) Foot ulcer ICD Codes: L97.509 - Non-pressure chronic ulcer of other part of unspecified foot with unspecified severity SNOMED: 85760846 (3) Sepsis Assessment & Plan: IV antibiotics as per infectious disease Okay for diet IV line for now may need PICC line for prolonged antibiotics we will discuss with infectious disease Further imaging pending A.m. labs ICD Codes: A41.9 - Sepsis, unspecified organism SNOMED: 39074179 Hilton Kirk Dec 09, 2018 16:24
--- NOTE | 2018-12-09 16:59 | Diagnostic Imaging Report ---
Indication: Right knee pain Technique: 3 views of the right knee Comparison: None Findings: Patient is status post right knee arthrodesis. This appears to be at least partially ankylosed. There is evidence of prior resection of the distal femur and proximal tibia. 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 The fusion hardware appears to be intact. No definite acute fractures. No dislocations. There is extensive medullary abnormality on both sides of the joint, presumably related to the prior surgery. The proximal fibula appears intact. No definite acute fractures. No dislocations. Impression: Postsurgical changes, as described No definite acute process. However, given the extent of postsurgical changes, superimposed acute trauma or infection is difficult to confidently exclude
--- NOTE | 2018-12-09 17:02 | Diagnostic Imaging Report ---
Indication: Pain Technique: 2 views of the left tibia and fibula Comparison: Findings: There is evidence of prior surgical arthrodesis of the knee. Hardware appears intact. No acute fractures. No dislocations. The ankle joint appears unremarkable. Cortex of the medial malleolus appears somewhat indistinct, erosive process not excludable. No definite osseous erosions otherwise. Surgical clips are seen in the distal leg Impression: Indistinct as to the medial malleolar cortex. Probably physiologic but the possibility of acute osteomyelitis should be considered. Correlate with clinical findings Postsurgical changes as described No acute bony trauma
--- NOTE | 2018-12-09 17:19 | NUR ---
ED Nurse Note: Report given to GAGAN Box at ext [phone]. Pt [facility] per protocol with all belongings.
[2018-12-09 17:21] VITALS: BP 139/78
[2018-12-09 20:00] VITALS: BP 142/82
--- NOTE | 2018-12-09 20:00 | NUR ---
NURSE NOTES: Received report from GAGAN Beck. Patient is awake, A/0x4. breathing even and unlabored. Patient on panel monitor showing ST. Patient oriented to room and unit. Saline lock intact and patent. right leg elevated on pillow. Bed in lowest position. Call lights within reach. Will continue plan of care.
[2018-12-09] MEDS: NovoLOG Insulin Flexpen SUBQ SCH (21:28)
[2018-12-09] MEDS ORDERED: LORazepam 1mg tab ORAL PRN (21:45)
[2018-12-09] MEDS ORDERED: Milk of Magnesia 30ml Ud ORAL PRN (21:45)
[2018-12-09] MEDS ORDERED: Mylanta II UD 30ml ORAL PRN (21:45)
[2018-12-09] MEDS: Morphine Sulfate 2mg/ml Inj(IV/IM USE ONLY) IVP PRN (22:27)
[2018-12-09] MEDS: Piperacillin/Tazobactam 3.375 GM in NS 110 ML IVPB SCH (22:49)
[2018-12-10] VITALS: BP 137/77
[2018-12-10] MEDS: Morphine Sulfate 2mg/ml Inj(IV/IM USE ONLY) IVP PRN ×6 (03:24→22:43)
[2018-12-10 04:00] VITALS: BP 134/73
[2018-12-10] MEDS: Piperacillin/Tazobactam 3.375 GM in NS 110 ML IVPB SCH (05:33)
[2018-12-10] MEDS: NovoLOG Insulin Flexpen SUBQ SCH ×4 (05:43→21:16)
[2018-12-10 06:48] LABS: BASOPHILS % (AUTO) 0.5 % (0.0-2.0); EOSINOPHILS % (AUTO) 2.3 % (0.0-3.0); LYMPHOCYTES % (AUTO) 18.7 % (20.0-45.0); MEAN CORPUSCULAR VOLUME 88 FL (80-99); MONOCYTES % (AUTO) 8.4 % (1.0-10.0); NEUTROPHILS % (AUTO) 70.1 % (45.0-75.0); PLATELET COUNT 374 K/UL (150-450); RED BLOOD COUNT 3.64 M/UL (4.70-6.10); RED CELL DISTRIBUTION WIDTH 11.2 % (11.6-14.8); WHITE BLOOD COUNT 12.2 K/UL (4.8-10.8)
[2018-12-10 07:12] LABS: INR 0.9 (0.9-1.1)
[2018-12-10 07:29] LABS: CHOLESTEROL 159 MG/DL (< 200); HDL CHOLESTEROL 46 MG/DL (40-60); TRIGLYCERIDES 77 MG/DL (30-150)
--- NOTE | 2018-12-10 07:30 | NUR ---
NURSE NOTES: Report received from GAGAN Casey. Pt. having breakfast. AOx4. In RA. Denies SOB. Complaint of R leg and foot pain 08/11. Med will be given per protocol. R AC 20g IV running NS at 100. L hand 20g IV running Zosyn. Site intact for both. Bed on lowest position. Side rails upx2. Brakes engaged. Call light within easy reach.
[2018-12-10 07:35] LABS: ALANINE AMINOTRANSFERASE 15 U/L (12-78); ALBUMIN 2.5 G/DL (3.4-5.0); ALBUMIN/GLOBULIN RATIO 0.6 (1.0-2.7); ALKALINE PHOSPHATASE 65 U/L (46-116); ANION GAP 7 mmol/L (5-15); ASPARTATE AMINO TRANSFERASE 10 U/L (15-37); BILIRUBIN,TOTAL 0.3 MG/DL (0.2-1.0); BLOOD UREA NITROGEN 7 mg/dL (7-18); CALCIUM 8.6 MG/DL (8.5-10.1); CARBON DIOXIDE 28 MMOL/L (21-32); CHLORIDE 101 MMOL/L (98-107); CREATININE 0.8 MG/DL (0.55-1.30); POTASSIUM 3.6 MMOL/L (3.5-5.1); SODIUM 135 MMOL/L (136-145)
--- NOTE | 2018-12-10 07:37 | NUR ---
HAND-OFF: Report given to GAGAN Bales.
[2018-12-10 08:00] VITALS: BP 136/78
[2018-12-10] MEDS: Docusate 100mg cap ORAL SCH ×2 (08:21→21:13)
[2018-12-10] MEDS: Heparin 5000 units/ml inj SUBQ SCH ×2 (08:23→21:15)
--- NOTE | 2018-12-10 09:14 | NUR ---
NURSE NOTES:WOUND CARE NOTES:Pt presented on admission with two DFU's plantar R foot . R lower ext , dorsal R foot and R 2nd metatarsal erythematous and edematous. Dry scaly skin R lower ext.Wound plantar R foot inferior to R 2nd metatarsal malodorous. Biofilm at base of wound . Edges macerated .Oozing small amt seropurulent exudate.(L)1cm x (W)1.2cm.Wound plantasr aspect hallux R foot . Base of wound is fluctuant with callused edges. No exudate noted. L foot assessed and no wounds noted .Thick callus L st metatarsal.L heel is dry and callused. Education provided to pt on Diabetic foot care. Pt was advised to check feet daily . Advised on wearing proper fitting foot wear. Encouraged to wear Diabetic socks and to change socks daily. Tx.Plan: Apply Betadine to wounds Plantar R foot. Cover with ABD pad.Wrap with Kerlix daily and prn. Moisturize R lower ext with Remedy Phytoplex Lotion Daily.
[2018-12-10 12:00] VITALS: BP 128/82
--- NOTE | 2018-12-10 12:43 | Consultation ---
History of Present Illness General Date patient seen: Dec 10, 2018 Chief Complaint: Edema Present Illness HPI 58 y/o with hx of Dm2, HLD, HTN, s/p PPM, schizophrenia, R diabetic foot MRSA infection, RLE total knee replacements x3 and skin flap presented to ED on 12/09 with RLE swelling, redness, pain and warmth. Also with ulcers on bottom of his foot for the past month. Denied n/v, f/c, cough, chest pain, SOB, abd pain. Allergies: Coded Allergies: NO KNOWN ALLERGIES (Unverified Allergy, Unknown, 02/08/15) Medication History Scheduled Acetaminophen* (Tylenol Extra Strength*), 650 MG ORAL Q8H, (Reported) Atorvastatin Calcium* (Atorvastatin Calcium*), DAILY, (Reported) Citalopram Hydrobromide* (Citalopram Hbr*), 10 MG ORAL DAILY, (Reported) Divalproex Sodium (Divalproex Sodium), 250 MG ORAL BID, (Reported) Dulaglutide (Trulicity), 1.5 MG SQ ONCE A WEEK, (Reported) Folic Acid* (Folic Acid*), 1 MG ORAL DAILY, (Reported) Furosemide* (Lasix*), 20 MG ORAL DAILY, (Reported) Furosemide* (Lasix*), 40 MG ORAL DAILY, (Reported) Gabapentin* (Gabapentin*), TID, (Reported) Heparin Sod (Porcine) (Heparin Sodium*), 5,000 UNITS SUBQ EVERY 12 HOURS, ( Reported) Insulin Aspart* (Novolog*), 0 SUBQ AC+HS, (Reported) Lisinopril* (Lisinopril*), 40 MG ORAL DAILY, (Reported) Metformin Hcl* (Metformin Hcl*), BID, (Reported) Nifedipine Er* (Nifedipine Er*), DAILY, (Reported) Nifedipine Xl* (Procardia Xl*), 90 MG ORAL DAILY, (Reported) Risperidone (Risperidone), 3 MG ORAL BID, (Reported) Sitagliptin (Januvia), DAILY, (Reported) Sodium Hypochlorite (Dakin's), 1 APPLIC TOPIC DAILY, (Reported) Vancomycin Hcl/D5w (Vancomycin-D5w 1 G/250 Ml), 1.5 GM IVPB Q12HR, (Reported) Vancomycin Hcl/D5w (Vancomycin-D5w 1 G/250 Ml), 1.5 GM IVPB Q12HR, (Reported) Scheduled PRN Acetaminophen* (Acetaminophen 325MG Tablet*), 650 MG ORAL Q8HR PRN for Prn Headache/Temp > 101, (Reported) Clonidine Hcl* (Catapres*), 0.1 MG ORAL EVERY 6 HOURS PRN for prn, (Reported) Morphine Sulfate* (Morphine Sulfate*), 2 MG IV Q4HR PRN for Moderate Pain (Pain Scale 4-6), (Reported) Patient History Healthcare decision maker Resuscitation status Full Code Advanced Directive on File Patient History Narrative Pmhx: as above Shx: Current smoker, denies alcohol or drug abuse Fhx: non contributory Review of Systems All Other Systems: negative except mentioned in HPI Physical Exam Physical Exam Narrative General appearance: alert, cooperative, no distress, appears stated age Head: Normocephalic, without obvious abnormality, atraumatic Eyes: conjunctivae/corneas clear. PERRL, EOM's intact. Fundi benign Throat: Lips, mucosa, and tongue normal. Teeth and gums normal Neck: supple, symmetrical, trachea midline, no adenopathy, thyroid: not enlarged, symmetric, no tenderness/mass/nodules, no carotid bruit and no JVD Lungs: clear to auscultation bilaterally Heart: regular rate and rhythm, S1, S2 normal, no murmur, click, rub or gallop Abdomen: soft, non-tender. Bowel sounds normal. No masses, no organomegaly Extremities: extremities edema Pulses: 2+ and symmetric Skin: Skin color, texture, turgor normal. No rashes or lesions Neurologic: Grossly normal Last 24 Hour Vital Signs Date Time Temp Pulse Resp B/P (MAP) Pulse Ox O2 Delivery O2 Flow Rate FiO2 12/10/18 09:00 Room Air 12/10/18 08:00 106 12/10/18 08:00 98.4 79 18 136/78 (97) 92 12/10/18 04:00 101 12/10/18 04:00 99.0 99 20 134/73 (93) 92 12/10/18 00:00 107 12/10/18 00:00 98.8 103 20 137/77 (97) 92 12/09/18 21:00 Room Air 12/09/18 20:00 99.5 104 20 142/82 (102) 94 12/09/18 20:00 103 12/09/18 18:46 Room Air 12/09/18 17:21 98.2 108 20 139/78 100 Room Air 12/09/18 17:21 98.2 108 20 139/78 100 Room Air 12/09/18 16:02 98.2 107 16 143/79 100 Room Air 12/09/18 14:13 98.2 105 19 130/70 99 Room Air 12/09/18 14:13 105 19 Room Air 12/09/18 13:37 98.2 115 20 132/75 (94) 95 Room Air Intake and Output 12/09/18 12/10/18 19:00 07:00 Intake Total 4892.5 ml 1586.6 ml Balance 4892.5 ml 1586.6 ml Intake Oral 840 ml IV Total 4892.5 ml 746.6 ml # Voids 1 4 Laboratory Tests Test 12/09/18 14:05 12/09/18 14:50 12/09/18 15:00 12/09/18 16:25 White Blood Count 16.0 K/UL (4.8-10.8) H Red Blood Count 4.04 M/UL (4.70-6.10) L Hemoglobin 12.2 G/DL (14.2-18.0) L Hematocrit 35.2 % (42.0-52.0) L Mean Corpuscular Volume 87 FL (80-99) Mean Corpuscular Hemoglobin 30.2 PG (27.0-31.0) Mean Corpuscular Hemoglobin Concent 34.7 G/DL (32.0-36.0) Red Cell Distribution Width 10.9 % (11.6-14.8) L Platelet Count 394 K/UL (150-450) Mean Platelet Volume 5.1 FL (6.5-10.1) L Neutrophils (%) (Auto) 78.9 % (45.0-75.0) H Lymphocytes (%) (Auto) 12.2 % (20.0-45.0) L Monocytes (%) (Auto) 7.5 % (1.0-10.0) Eosinophils (%) (Auto) 0.6 % (0.0-3.0) Basophils (%) (Auto) 0.8 % (0.0-2.0) Sodium Level 122 MMOL/L (136-145) L Potassium Level 4.0 MMOL/L (3.5-5.1) Chloride Level 88 MMOL/L (98-107) L Carbon Dioxide Level 23 MMOL/L (21-32) Anion Gap 11 mmol/L (5-15) Blood Urea Nitrogen 9 mg/dL (7-18) Creatinine 1.2 MG/DL (0.55-1.30) Estimat Glomerular Filtration Rate > 60 mL/min (>60) Glucose Level 268 MG/DL (74-106) H Calcium Level 9.5 MG/DL (8.5-10.1) Phosphorus Level 2.9 MG/DL (2.5-4.9) Magnesium Level 1.3 MG/DL (1.8-2.4) L Total Bilirubin 0.4 MG/DL (0.2-1.0) Aspartate Amino Transf (AST/SGOT) 9 U/L (15-37) L Alanine Aminotransferase (ALT/SGPT) 17 U/L (12-78) Alkaline Phosphatase 75 U/L (46-116) Total Protein 7.5 G/DL (6.4-8.2) Albumin 2.9 G/DL (3.4-5.0) L Globulin 4.6 g/dL Albumin/Globulin Ratio 0.6 (1.0-2.7) L Lactic Acid Level 3.80 mmol/L (0.4-2.0) H 2.80 mmol/L (0.66-2.22) H Urine Color Pale yellow Urine Appearance Clear Urine pH 7 (4.5-8.0) Urine Specific Keavy 1.005 (1.005-1.035) Urine Protein 2+ (NEGATIVE) H Urine Glucose (UA) 2+ (NEGATIVE) H Urine Ketones Negative (NEGATIVE) Urine Blood 1+ (NEGATIVE) H Urine Nitrite Negative (NEGATIVE) Urine Bilirubin Negative (NEGATIVE) Urine Urobilinogen Normal MG/DL (0.0-1.0) Urine Leukocyte Esterase Negative (NEGATIVE) Urine RBC 0-2 /HPF (0 - 0) H Urine WBC 0-2 /HPF (0 - 0) Urine Squamous Epithelial Cells Occasional /LPF Urine Bacteria None /HPF (NONE) Test 12/10/18 05:30 White Blood Count 12.2 K/UL (4.8-10.8) H Red Blood Count 3.64 M/UL (4.70-6.10) L Hemoglobin 11.0 G/DL (14.2-18.0) L Hematocrit 32.0 % (42.0-52.0) L Mean Corpuscular Volume 88 FL (80-99) Mean Corpuscular Hemoglobin 30.1 PG (27.0-31.0) Mean Corpuscular Hemoglobin Concent 34.2 G/DL (32.0-36.0) Red Cell Distribution Width 11.2 % (11.6-14.8) L Platelet Count 374 K/UL (150-450) Mean Platelet Volume 4.6 FL (6.5-10.1) L Neutrophils (%) (Auto) 70.1 % (45.0-75.0) Lymphocytes (%) (Auto) 18.7 % (20.0-45.0) L Monocytes (%) (Auto) 8.4 % (1.0-10.0) Eosinophils (%) (Auto) 2.3 % (0.0-3.0) Basophils (%) (Auto) 0.5 % (0.0-2.0) Erythrocyte Sedimentation Rate 84 MM/HR (0-20) H Prothrombin Time 10.0 SEC (9.30-11.50) Prothromb Time International Ratio 0.9 (0.9-1.1) Activated Partial Thromboplast Time 29 SEC (23-33) Sodium Level 135 MMOL/L (136-145) #L Potassium Level 3.6 MMOL/L (3.5-5.1) Chloride Level 101 MMOL/L (98-107) Carbon Dioxide Level 28 MMOL/L (21-32) Anion Gap 7 mmol/L (5-15) Blood Urea Nitrogen 7 mg/dL (7-18) Creatinine 0.8 MG/DL (0.55-1.30) Estimat Glomerular Filtration Rate > 60 mL/min (>60) Glucose Level 164 MG/DL (74-106) #H Hemoglobin A1c 8.1 % (4.3-6.0) H Lactic Acid Level 0.80 mmol/L (0.4-2.0) Calcium Level 8.6 MG/DL (8.5-10.1) Total Bilirubin 0.3 MG/DL (0.2-1.0) Aspartate Amino Transf (AST/SGOT) 10 U/L (15-37) L Alanine Aminotransferase (ALT/SGPT) 15 U/L (12-78) Alkaline Phosphatase 65 U/L (46-116) C-Reactive Protein, Quantitative 16.2 mg/dL (0.00-0.90) H Total Protein 6.8 G/DL (6.4-8.2) Albumin 2.5 G/DL (3.4-5.0) L Globulin 4.3 g/dL Albumin/Globulin Ratio 0.6 (1.0-2.7) L Triglycerides Level 77 MG/DL (30-150) Cholesterol Level 159 MG/DL (< 200) LDL Cholesterol 91 mg/dL (<100) HDL Cholesterol 46 MG/DL (40-60) Cholesterol/HDL Ratio 3.5 (3.3-4.4) Microbiology Date/Time Source Procedure Growth Status 12/09/18 15:00 Rectum Received Height (Feet): 5 Height (Inches): 11.00 Weight (Pounds): 265 Medications Current Medications Medications (Trade) Dose Ordered Sig/Azar Route PRN Reason Start Time Stop Time Status Last Admin Dose Admin Acetaminophen (Tylenol) 650 mg Q4H PRN ORAL fever (temp>100.5F) 12/09/18 21:45 01/08/19 21:44 Al Hydroxide/Mg Hydroxide (Mylanta II) 30 ml Q6H PRN ORAL dyspepsia 12/09/18 21:45 01/08/19 21:44 Bisacodyl (Dulcolax) 10 mg HSPRN PRN RECTAL Constipation 12/09/18 21:45 01/08/19 21:44 Dextrose (Dextrose 50%) 25 ml Q30M PRN IV Hypoglycemia 12/09/18 20:15 01/08/19 20:14 Dextrose (Dextrose 50%) 50 ml Q30M PRN IV Hypoglycemia 12/09/18 20:15 01/08/19 20:14 Diphenhydramine HCl (Benadryl) 25 mg Q6H PRN ORAL Itching/Pruritis 12/09/18 21:45 01/08/19 21:44 Docusate Sodium (Colace) 100 mg EVERY 12 HOURS ORAL 12/10/18 09:00 01/09/19 08:59 12/10/18 08:21 Famotidine (Pepcid) 40 mg DAILY ORAL 12/10/18 09:00 01/09/19 08:59 12/10/18 08:21 Heparin Sodium (Porcine) (Heparin 5000 units/ml) 5,000 units EVERY 12 HOURS SUBQ 12/10/18 09:00 01/09/19 08:59 12/10/18 08:23 Insulin Aspart (NovoLOG) BEFORE MEALS AND HS SUBQ 12/09/18 21:00 01/08/19 20:59 12/10/18 12:10 Lorazepam (Ativan) 1 mg Q4H PRN ORAL For Anxiety 12/09/18 21:45 12/16/18 21:44 Magnesium Hydroxide (Mom) 30 ml HSPRN PRN ORAL Constipation 12/09/18 21:45 01/08/19 21:44 Morphine Sulfate (Morphine Sulfate) 2 mg Q4H PRN IVP Moderate Pain (Pain Scale 4-6) 12/09/18 21:45 12/16/18 21:44 12/10/18 08:05 Ondansetron HCl (Zofran) 4 mg Q6H PRN IVP Nausea & Vomiting 12/09/18 21:45 01/08/19 21:44 Piperacillin Sod/ Tazobactam Sod 3.375 gm/Sodium Chloride 110 ml @ 27.5 mls/hr EVERY 8 HOURS IVPB 12/09/18 23:00 12/14/18 22:59 12/10/18 05:33 Sodium Chloride 1,000 ml @ 100 mls/hr Q10H IVLG 12/09/18 22:00 01/08/19 21:59 12/10/18 11:07 Temazepam (Restoril) 15 mg HSPRN PRN ORAL Insomnia 12/09/18 21:45 12/16/18 21:44 Assessment/Plan Assessment/Plan: Abx: Zosyn 12/09- Ceftriaxone x1 12/09 IV Vancomycin x1 12/09 Assessment: RLE cellulitis -R tibia/fibula xray: Indistinct as to the medial malleolar cortex. Probably physiologic but the possibility of acute osteomyelitis should be considered. Correlate with clinical findings. Postsurgical changes as described. No acute bony trauma -R knee xray Postsurgical changes, as described. No definite acute process. However, given the extent of postsurgical changes, superimposed acute trauma or infection is difficult to confidently exclude R diabetic foot ulcers- does not appear to be infected -foot Xray: Limited exam, as described. No definite findings to suggest acute osseous myelitis. Afebrile Leukocytosis, improving Dm2 HLD HTN s/p PPM schizophrenia hx of R diabetic foot MRSA infection 06/2017 RLE total knee replacements x3 and skin flap Plan: -Switch Zosyn #2 to Ceftriaxone and continue IV Vancomycin #2 -f/u cx -Monitor CBC/CMP, temperatures -MRI R ankle and foot -podiatry eval -sx f/u Thank you for this consultation. Will continue to follow along with you. Discussed with Vandana Rodriguez M.D. Dec 10, 2018 12:43
--- NOTE | 2018-12-10 14:31 | NUR ---
P.T Note: P.T evaluation complete and treatment initiated. Please refer to P.T evaluation for current functional status. Pt is alert, O x 4, cooperative. Pt presented swelling and pain ( 8/10) of the R lower leg and foot and open wound on the plantar aspect of the R forefoot affecting overall functional mobilities and gait. Pt currently require cga x 1 for transfers and gait activities using the FWW. Pt advised not to Wt on the RLE due to open wound until cleared by software engineering specialist. Pt will be seen for skilled P.T for functional mobility training and compensatory gait tech and safety during stay for return to PLOF.
[2018-12-10] MEDS ORDERED: Gadavist 7.5mMol/7.5ml vial IV PRN ×2 (14:45)
[2018-12-10] MEDS ORDERED: Vancomycin 1750mg/D5W 550ml IVPB ONE ×2 (15:00)
[2018-12-10] MEDS: cefTRIAXone 1 GM in D5W 55 ML IVPB SCH (15:45)
--- NOTE | 2018-12-10 15:45 | History and Physical Report ---
DATE OF ADMISSION: 12/09/2018 TIME SEEN: 9 a.m. CONSULTANTS: 1. Lorne Rodrigues D.P.M. 2. Kt Zavaleta M.D 3. Hilton Kirk M.D. 4. Cyndi Mcghee M.D. CHIEF COMPLAINT: Diabetic foot ulcer, cellulitis. BRIEF HISTORY: The patient is a 58-year-old male, who lives at home, complaining of one week increasing swelling in the right leg, started getting red and hot. The patient came to [facility], diagnosed with diabetic foot ulcer, cellulitis, admitted to telemetry for further care. Currently, calm in bed, slight right foot pain, no complaint. REVIEW OF SYSTEMS: No chest pain. No shortness of breath. No nausea, vomiting, or diarrhea. PAST MEDICAL HISTORY: Hypertension, diabetes, schizophrenia. PAST SURGICAL HISTORY: Right leg. MEDICATIONS: Heparin, famotidine, docusate sodium, Zosyn ,Tylenol, morphine, Zofran, lorazepam, temazepam, insulin. ALLERGIES: Denies. SOCIAL HISTORY: Positive smoking. No alcohol. No intravenous drug abuse. FAMILY HISTORY: Noncontributory. PHYSICAL EXAMINATION: GENERAL: Calm in bed, oriented x3, no acute distress. VITAL SIGNS: Temperature is 98 degrees, pulse 79, respiratory rate 18, blood pressure 136/78. CARDIOVASCULAR: No murmur. LUNGS: Distant and clear. ABDOMEN: Bowel sound positive. Nontender. Nondistended. EXTREMITIES: No cyanosis, clubbing, 1+ edema right leg, cellulitis below the knee. NEUROLOGIC: The patient moves all extremities, slightly weak. LABORATORY AND DIAGNOSTIC DATA: White count initially 16, now 12.2, hemoglobin and hematocrit 11/32, platelets 374. ESR 84. Sodium 135, glucose 164, albumin 2.5. INR 0.9. PTT 29. Urinalysis show 1+ blood, 2+ glucose. ASSESSMENT: 1. Right diabetic foot ulcer. 2. Cellulitis. 3. Anaemia. 4. Malnutrition. 5. Hypertension. 6. Diabetes. 7. Schizophrenia. PLAN: 1. Blood pressure, blood sugar, pain control. 2. Dietary followup. 3. Wound care. 4. Antibiotics per Infectious Diseases. 5. PT/OT, dietary evaluation. 6. . Sergio Felix D.O. DR: Daysi JOB#: [id number] CC:
[2018-12-10 16:00] VITALS: BP 139/79
--- NOTE | 2018-12-10 18:18 | NUR ---
MRI RIGHT FOOT AND ANKLE W/WO COMPLETED.
--- NOTE | 2018-12-10 19:16 | NUR ---
CASE MANAGEMENT: REVIEW 58Y/MALE LORENZA FROM [facility] CC: EDEMA RIGHT LEG X1 MONTH . HX DM SI: RIGHT FOOT ULCER . CELLULITIS . DEHYDRATION T 98.2 HR 115 RR 20 BP 132/75 SAT 95% ROOM AIR WBC 16.0 H/H 12.2/35.2 LACTIC ACID MRI RIGHT FOOT PENDING IS: NS IVF BOLUS X1 CEFTRIAXONE IV X1 VANCO IV X1 MAG SULFATE IV X1 PATIENT ADMITTED TO TELEMETRY UNIT 12/09/2018 DCP: PATIENT IS FROM [facility]
--- NOTE | 2018-12-10 19:30 | NUR ---
HAND-OFF: Report given to GAGAN Hansen. Pt. in stable condition.
--- NOTE | 2018-12-10 19:35 | NUR ---
NURSE NOTES: Report received from GAGAN Bales. Pt in bed, awake and talking, in no acute distress noted. breathing even and unlabored. IV line on RAC intact and patent. bed in lowest position. call lights within reach. will continue plan of care.
[2018-12-10 20:00] VITALS: BP 135/84
--- NOTE | 2018-12-10 20:58 | Surgery Progress Note ---
Surgery Progress Note Subjective Symptoms: improved, tolerating diet, voiding well, passing flatus, pain decreased Objective Last 24 Hour Vital Signs Date Time Temp Pulse Resp B/P (MAP) Pulse Ox O2 Delivery O2 Flow Rate FiO2 12/10/18 16:00 93 12/10/18 16:00 97.5 95 18 139/79 (99) 100 12/10/18 12:00 91 12/10/18 12:00 98.0 88 19 128/82 (97) 94 12/10/18 09:00 Room Air 12/10/18 08:00 106 12/10/18 08:00 98.4 79 18 136/78 (97) 92 12/10/18 04:00 101 12/10/18 04:00 99.0 99 20 134/73 (93) 92 12/10/18 00:00 107 12/10/18 00:00 98.8 103 20 137/77 (97) 92 12/09/18 21:00 Room Air I&O Intake and Output 12/09/18 12/10/18 19:00 07:00 Intake Total 4892.5 ml 1586.6 ml Balance 4892.5 ml 1586.6 ml Intake Oral 840 ml IV Total 4892.5 ml 746.6 ml # Voids 1 4 Dressing: dry Wound: clean Cardiovascular: RSR Respiratory: clear Abdomen: soft, flat, present bowel sounds, non-distended Extremities: edema, no tenderness, no cyanosis Laboratory Tests Test 12/10/18 05:30 White Blood Count 12.2 K/UL (4.8-10.8) H Red Blood Count 3.64 M/UL (4.70-6.10) L Hemoglobin 11.0 G/DL (14.2-18.0) L Hematocrit 32.0 % (42.0-52.0) L Mean Corpuscular Volume 88 FL (80-99) Mean Corpuscular Hemoglobin 30.1 PG (27.0-31.0) Mean Corpuscular Hemoglobin Concent 34.2 G/DL (32.0-36.0) Red Cell Distribution Width 11.2 % (11.6-14.8) L Platelet Count 374 K/UL (150-450) Mean Platelet Volume 4.6 FL (6.5-10.1) L Neutrophils (%) (Auto) 70.1 % (45.0-75.0) Lymphocytes (%) (Auto) 18.7 % (20.0-45.0) L Monocytes (%) (Auto) 8.4 % (1.0-10.0) Eosinophils (%) (Auto) 2.3 % (0.0-3.0) Basophils (%) (Auto) 0.5 % (0.0-2.0) Erythrocyte Sedimentation Rate 84 MM/HR (0-20) H Prothrombin Time 10.0 SEC (9.30-11.50) Prothromb Time International Ratio 0.9 (0.9-1.1) Activated Partial Thromboplast Time 29 SEC (23-33) Sodium Level 135 MMOL/L (136-145) #L Potassium Level 3.6 MMOL/L (3.5-5.1) Chloride Level 101 MMOL/L (98-107) Carbon Dioxide Level 28 MMOL/L (21-32) Anion Gap 7 mmol/L (5-15) Blood Urea Nitrogen 7 mg/dL (7-18) Creatinine 0.8 MG/DL (0.55-1.30) Estimat Glomerular Filtration Rate > 60 mL/min (>60) Glucose Level 164 MG/DL (74-106) #H Hemoglobin A1c 8.1 % (4.3-6.0) H Lactic Acid Level 0.80 mmol/L (0.4-2.0) Calcium Level 8.6 MG/DL (8.5-10.1) Total Bilirubin 0.3 MG/DL (0.2-1.0) Aspartate Amino Transf (AST/SGOT) 10 U/L (15-37) L Alanine Aminotransferase (ALT/SGPT) 15 U/L (12-78) Alkaline Phosphatase 65 U/L (46-116) C-Reactive Protein, Quantitative 16.2 mg/dL (0.00-0.90) H Total Protein 6.8 G/DL (6.4-8.2) Albumin 2.5 G/DL (3.4-5.0) L Globulin 4.3 g/dL Albumin/Globulin Ratio 0.6 (1.0-2.7) L Triglycerides Level 77 MG/DL (30-150) Cholesterol Level 159 MG/DL (< 200) LDL Cholesterol 91 mg/dL (<100) HDL Cholesterol 46 MG/DL (40-60) Cholesterol/HDL Ratio 3.5 (3.3-4.4) Plan Problems: (1) Cellulitis Assessment & Plan: This is a 58-year-old male with worsening cellulitis of his right lower extremity. Patient with history of 3 total knee replacements as well as skin flaps for closure and bone infusions. States that this is been worsening over the past week but ongoing for about almost a month. Has 2 ulcers on the lateral midfoot. Leukocytosis, lactic acidosis, hyperglycemia. On examination no discrete abscess is identified. Mainly cellulitis. Tender warm with erythema Recommend IV antibiotics Leg elevation Plain films reviewed. cont abx Podiatry eval for foot ulcers We will follow with recommendations thank you (2) Foot ulcer (3) Sepsis Assessment & Plan: IV antibiotics as per infectious disease Okay for diet IV line for now may need PICC line for prolonged antibiotics we will discuss with infectious disease Further imaging pending A.m. labs Hilton Kirk Dec 10, 2018 20:58
[2018-12-11] VITALS: BP 131/86
[2018-12-11] MEDS: Vancomycin 1gm/D5W 275ml IVPB SCH ×8 (00:52→22:57)
[2018-12-11] MEDS: Morphine Sulfate 2mg/ml Inj(IV/IM USE ONLY) IVP PRN ×5 (03:11→22:56)
[2018-12-11 04:00] VITALS: BP 130/80
[2018-12-11] MEDS: NovoLOG Insulin Flexpen SUBQ SCH ×4 (06:07→20:45)
--- NOTE | 2018-12-11 07:05 | NUR ---
HAND-OFF: Report given to GAGAN Torres.
--- NOTE | 2018-12-11 07:06 | NUR ---
[facility] NOTES[facility], lockedpostion. Call olivares in reach.
[2018-12-11 07:19] LABS: BASOPHILS % (AUTO) 0.9 % (0.0-2.0); EOSINOPHILS % (AUTO) 3.5 % (0.0-3.0); HEMATOCRIT 32.6 % (42.0-52.0); HEMOGLOBIN 11.2 G/DL (14.2-18.0); LYMPHOCYTES % (AUTO) 19.3 % (20.0-45.0); MEAN CORPUSCULAR VOLUME 89 FL (80-99); MONOCYTES % (AUTO) 6.3 % (1.0-10.0); PLATELET COUNT 393 K/UL (150-450); RED BLOOD COUNT 3.68 M/UL (4.70-6.10); RED CELL DISTRIBUTION WIDTH 11.1 % (11.6-14.8); WHITE BLOOD COUNT 11.6 K/UL (4.8-10.8)
[2018-12-11 07:50] LABS: ANION GAP 6 mmol/L (5-15); BLOOD UREA NITROGEN 5 mg/dL (7-18); CALCIUM 9.2 MG/DL (8.5-10.1); CARBON DIOXIDE 29 MMOL/L (21-32); CHLORIDE 98 MMOL/L (98-107); CREATININE 0.8 MG/DL (0.55-1.30); POTASSIUM 3.8 MMOL/L (3.5-5.1); SODIUM 133 MMOL/L (136-145)
[2018-12-11 08:00] VITALS: BP 153/96
[2018-12-11] MEDS: Docusate 100mg cap ORAL SCH ×2 (08:20→20:36)
[2018-12-11] MEDS: Heparin 5000 units/ml inj SUBQ SCH ×2 (08:28→20:40)
--- NOTE | 2018-12-11 09:00 | Diagnostic Imaging Report ---
Indication: Right foot open wound on plantar surface Technique: Sagittal, axial, and coronal T1 FSE and FSE STIR, precontrast and postcontrast sagittal and coronal T1 fat-saturated images were obtained of the forefoot Comparison: No comparison MRIs. Reference made to foot radiograph 12/09/2018 Findings: There is an area of increased STIR and low T1 signal in the subcutaneous fat the plantar surface of the forefoot, inferior to and surrounding the second metatarsal head and second metatarsal phalangeal joint. This appears to be associated with a small ulcer which is marked by an MRI marker.. On the postcontrast images, this area demonstrates peripheral enhancement by a central nonenhancing area which measures 24 x 8 by approximately 8 mm and is consistent with a small abscess. There is no definite adjacent signal abnormality in the bone marrow to suggest osteomyelitis. There is no evidence of abnormal contrast enhancement There is a small joint effusion involving the second metatarsophalangeal joint. Joint fluid is also seen in the first and third metatarsophalangeal joint and in the first interphalangeal joint. High signal is seen in all of the areas of joint fluid on the postcontrast images. There is also extensive edema of the dorsal soft tissues. There is less striking edema of the deep musculotendinous compartment No discrete collections are demonstrated. There is hammertoe deformity of the second through fifth digits. Impression: Findings consistent with a small 24 x 8 x 8 mm abscess in the plantar surface of the foot superficial to the second metatarsal head and second metatarsal phalangeal joint with surrounding cellulitis. This appears to be deep to the clinically apparent ulcer . Dr. Welch was notified of this at the time of interpretation No evidence of osteomyelitis Small joint effusion of the second metatarsal phalangeal joint. Findings are nonspecific as to whether this is infected or not Dorsal edema of the subcutaneous fat. This could indicate cellulitis or could be hemodynamic in origin.
--- NOTE | 2018-12-11 09:33 | General Progress Note ---
Assessment/Plan Problem List: (1) HTN (hypertension) ICD Codes: I10 - Essential (primary) hypertension SNOMED: 05803911 (2) Diabetes ICD Codes: E11.9 - Type 2 diabetes mellitus without complications SNOMED: 98791656 (3) Anemia ICD Codes: D64.9 - Anemia, unspecified SNOMED: 777495051 (4) Malnutrition ICD Codes: E46 - Unspecified protein-calorie malnutrition SNOMED: 68577161 (5) Sepsis ICD Codes: A41.9 - Sepsis, unspecified organism SNOMED: 68378455 (6) Chronic pain ICD Codes: G89.29 - Other chronic pain SNOMED: 62687259 (7) Cellulitis ICD Codes: L03.90 - Cellulitis, unspecified SNOMED: 942466733 (8) Foot ulcer ICD Codes: L97.509 - Non-pressure chronic ulcer of other part of unspecified foot with unspecified severity SNOMED: 43862440 Status: stable, progressing Assessment/Plan: wound care abx pain control cbc bmp am aru eval Subjective Constitutional: Reports: weakness Allergies: Coded Allergies: NO KNOWN ALLERGIES (Unverified Allergy, Unknown, 02/08/15) All Systems: reviewed and negative except above Subjective calm in bed Objective Last 24 Hour Vital Signs Date Time Temp Pulse Resp B/P (MAP) Pulse Ox O2 Delivery O2 Flow Rate FiO2 12/11/18 08:00 97.8 79 18 153/96 (115) 95 12/11/18 04:00 81 12/11/18 04:00 98.0 90 18 130/80 (97) 97 12/11/18 00:00 86 12/11/18 00:00 98.5 89 18 131/86 (101) 95 12/10/18 21:00 Room Air 12/10/18 20:00 99 12/10/18 20:00 97.3 97 18 135/84 (101) 95 12/10/18 16:00 93 12/10/18 16:00 97.5 95 18 139/79 (99) 100 12/10/18 12:00 91 12/10/18 12:00 98.0 88 19 128/82 (97) 94 Intake and Output 12/10/18 12/11/18 18:59 06:59 Intake Total 740 ml 200 ml Output Total 1400 ml Balance -660 ml 200 ml Intake Oral 740 ml 200 ml Output Urine Total 1400 ml # Voids 5 Laboratory Tests 12/11/18 05:35: White Blood Count 11.6H, Red Blood Count 3.68L, Hemoglobin 11.2L, Hematocrit 32.6L, Mean Corpuscular Volume 89, Mean Corpuscular Hemoglobin 30.4, Mean Corpuscular Hemoglobin Concent 34.3, Red Cell Distribution Width 11.1L, Platelet Count 393, Mean Platelet Volume 4.5L, Neutrophils (%) (Auto) 70.0, Lymphocytes (%) (Auto) 19.3L, Monocytes (%) (Auto) 6.3, Eosinophils (%) (Auto) 3.5H, Basophils (%) (Auto) 0.9, Sodium Level 133L, Potassium Level 3.8, Chloride Level 98, Carbon Dioxide Level 29, Anion Gap 6, Blood Urea Nitrogen 5L , Creatinine 0.8, Estimat Glomerular Filtration Rate > 60, Glucose Level 156H, Calcium Level 9.2 Height (Feet): 5 Height (Inches): 11.00 Weight (Pounds): 265 General Appearance: lethargic EENT: normal ENT inspection Neck: normal alignment Cardiovascular: normal peripheral pulses, normal rate, regular rhythm Respiratory/Chest: chest wall non-tender, lungs clear, normal breath sounds Abdomen: normal bowel sounds, non tender, soft Extremities: normal inspection Edema: no edema noted Arm (L), no edema noted Arm (R), no edema noted Leg (L), no edema noted Leg (R), no edema noted Pedal (L), no edema noted Pedal (R), no edema noted Generalized Neurologic: responsive, motor weakness Skin: normal pigmentation, warm/dry Sergio Felix DO Dec 11, 2018 09:33
[2018-12-11] MEDS: cefTRIAXone 1 GM in D5W 55 ML IVPB SCH (10:05)
[2018-12-11 12:00] VITALS: BP 153/93
--- NOTE | 2018-12-11 12:09 | Infectious Diseases Prog Note ---
Assessment/Plan Assessment/Plan Assessment: RLE cellulitis -R tibia/fibula xray: Indistinct as to the medial malleolar cortex. Probably physiologic but the possibility of acute osteomyelitis should be considered. Correlate with clinical findings. Postsurgical changes as described. No acute bony trauma -R knee xray Postsurgical changes, as described. No definite acute process. However, given the extent of postsurgical changes, superimposed acute trauma or infection is difficult to confidently exclude R diabetic foot ulcers w/ deep abscess -MRI R foot/ankle: Findings consistent with a small 24 x 8 x 8 mm abscess in the plantar surface of the foot superficial to the second metatarsal head and second metatarsal phalangeal joint with surrounding cellulitis. This appears to be deep to the clinically apparent ulcer. No evidence of osteomyelitis. Small joint effusion of the second metatarsal phalangeal joint. Findings are nonspecific as to whether this is infected or not. Dorsal edema of the subcutaneous fat. This could indicate cellulitis or could be hemodynamic in origin. -foot Xray: Limited exam, as described. No definite findings to suggest acute osseous myelitis. Afebrile Leukocytosis, improving Dm2 HLD HTN s/p PPM schizophrenia hx of R diabetic foot MRSA infection 06/2017 RLE total knee replacements x3 and skin flap Plan: -Continue Ceftriaxone #2 (abx d #3) and continue IV Vancomycin #3 -add PO Flagyl for anaerobic coverage -12/10 SP Zosyn #2 -f/u cx -Monitor CBC/CMP, temperatures -podiatry eval -sx f/u Thank you for this consultation. Will continue to follow along with you. Discussed with RN Subjective Allergies: Coded Allergies: NO KNOWN ALLERGIES (Unverified Allergy, Unknown, 02/08/15) Subjective afebrle wbc improving Objective Vital Signs Last 24 Hour Vital Signs Date Time Temp Pulse Resp B/P (MAP) Pulse Ox O2 Delivery O2 Flow Rate FiO2 12/11/18 09:57 98.0 12/11/18 09:00 Room Air 12/11/18 08:00 97.8 79 18 153/96 (115) 95 12/11/18 08:00 81 12/11/18 04:00 81 12/11/18 04:00 98.0 90 18 130/80 (97) 97 12/11/18 00:00 86 12/11/18 00:00 98.5 89 18 131/86 (101) 95 12/10/18 21:00 Room Air 12/10/18 20:00 99 12/10/18 20:00 97.3 97 18 135/84 (101) 95 12/10/18 16:00 93 12/10/18 16:00 97.5 95 18 139/79 (99) 100 12/10/18 12:00 91 12/10/18 12:00 98.0 88 19 128/82 (97) 94 Height (Feet): 5 Height (Inches): 11.00 Weight (Pounds): 265 Objective General appearance: alert, cooperative, no distress, appears stated age Head: Normocephalic, without obvious abnormality, atraumatic Eyes: conjunctivae/corneas clear. PERRL, EOM's intact. Fundi benign Throat: Lips, mucosa, and tongue normal. Teeth and gums normal Neck: supple, symmetrical, trachea midline, no adenopathy, thyroid: not enlarged, symmetric, no tenderness/mass/nodules, no carotid bruit and no JVD Lungs: clear to auscultation bilaterally Heart: regular rate and rhythm, S1, S2 normal, no murmur, click, rub or gallop Abdomen: soft, non-tender. Bowel sounds normal. No masses, no organomegaly Extremities: extremities edema Pulses: 2+ and symmetric Skin: Skin color, texture, turgor normal. No rashes or lesions Neurologic: Grossly normal Microbiology Date/Time Source Procedure Growth Status 12/09/18 14:20 Blood Blood Culture - Preliminary NO GROWTH AFTER 24 HOURS Resulted 12/09/18 14:05 Blood Blood Culture - Preliminary NO GROWTH AFTER 24 HOURS Resulted 12/09/18 15:00 Nasal Nares MRSA Culture - Final NO METHICILLIN RESISTANT STAPH AUREUS... Complete 12/09/18 15:00 Rectum - Final NO CARBAPENEM-RESISTANT ENTEROBACTERI... Complete 12/09/18 15:00 Rectum VRE Culture - Final NO VANCOMYCIN RESISTANT ENTEROCOCCUS ... Complete Laboratory Tests Test 12/11/18 05:35 White Blood Count 11.6 K/UL (4.8-10.8) H Red Blood Count 3.68 M/UL (4.70-6.10) L Hemoglobin 11.2 G/DL (14.2-18.0) L Hematocrit 32.6 % (42.0-52.0) L Mean Corpuscular Volume 89 FL (80-99) Mean Corpuscular Hemoglobin 30.4 PG (27.0-31.0) Mean Corpuscular Hemoglobin Concent 34.3 G/DL (32.0-36.0) Red Cell Distribution Width 11.1 % (11.6-14.8) L Platelet Count 393 K/UL (150-450) Mean Platelet Volume 4.5 FL (6.5-10.1) L Neutrophils (%) (Auto) 70.0 % (45.0-75.0) Lymphocytes (%) (Auto) 19.3 % (20.0-45.0) L Monocytes (%) (Auto) 6.3 % (1.0-10.0) Eosinophils (%) (Auto) 3.5 % (0.0-3.0) H Basophils (%) (Auto) 0.9 % (0.0-2.0) Sodium Level 133 MMOL/L (136-145) L Potassium Level 3.8 MMOL/L (3.5-5.1) Chloride Level 98 MMOL/L (98-107) Carbon Dioxide Level 29 MMOL/L (21-32) Anion Gap 6 mmol/L (5-15) Blood Urea Nitrogen 5 mg/dL (7-18) L Creatinine 0.8 MG/DL (0.55-1.30) Estimat Glomerular Filtration Rate > 60 mL/min (>60) Glucose Level 156 MG/DL (74-106) H Calcium Level 9.2 MG/DL (8.5-10.1) Current Medications Medications (Trade) Dose Ordered Sig/Azar Route PRN Reason Start Time Stop Time Status Last Admin Dose Admin Acetaminophen (Tylenol) 650 mg Q4H PRN ORAL fever (temp>100.5F) 12/09/18 21:45 01/08/19 21:44 Al Hydroxide/Mg Hydroxide (Mylanta II) 30 ml Q6H PRN ORAL dyspepsia 12/09/18 21:45 01/08/19 21:44 Bisacodyl (Dulcolax) 10 mg HSPRN PRN RECTAL Constipation 12/09/18 21:45 01/08/19 21:44 Ceftriaxone Sodium 1 gm/ Dextrose 55 ml @ 110 mls/hr DAILY IVPB 12/10/18 15:00 12/17/18 14:59 12/11/18 10:05 Dextrose (Dextrose 50%) 25 ml Q30M PRN IV Hypoglycemia 12/09/18 20:15 01/08/19 20:14 Dextrose (Dextrose 50%) 50 ml Q30M PRN IV Hypoglycemia 12/09/18 20:15 01/08/19 20:14 Diphenhydramine HCl (Benadryl) 25 mg Q6H PRN ORAL Itching/Pruritis 12/09/18 21:45 01/08/19 21:44 Docusate Sodium (Colace) 100 mg EVERY 12 HOURS ORAL 12/10/18 09:00 01/09/19 08:59 12/11/18 08:20 Famotidine (Pepcid) 40 mg DAILY ORAL 12/10/18 09:00 01/09/19 08:59 12/11/18 08:20 Gadobutrol (Gadavist) 7.5 mmol NOW PRN IV Radiology Procedure 12/10/18 14:45 12/14/18 14:45 Gadobutrol (Gadavist) 7.5 mmol NOW PRN IV Radiology Procedure 12/10/18 14:45 12/14/18 14:45 Heparin Sodium (Porcine) (Heparin 5000 units/ml) 5,000 units EVERY 12 HOURS SUBQ 12/10/18 09:00 01/09/19 08:59 12/11/18 08:28 Insulin Aspart (NovoLOG) BEFORE MEALS AND HS SUBQ 12/09/18 21:00 01/08/19 20:59 12/11/18 11:32 Lorazepam (Ativan) 1 mg Q4H PRN ORAL For Anxiety 12/09/18 21:45 12/16/18 21:44 Magnesium Hydroxide (Mom) 30 ml HSPRN PRN ORAL Constipation 12/09/18 21:45 01/08/19 21:44 Morphine Sulfate (Morphine Sulfate) 2 mg Q4H PRN IVP Moderate Pain (Pain Scale 4-6) 12/09/18 21:45 12/16/18 21:44 12/11/18 08:20 Ondansetron HCl (Zofran) 4 mg Q6H PRN IVP Nausea & Vomiting 12/09/18 21:45 01/08/19 21:44 Sodium Chloride 1,000 ml @ 100 mls/hr Q10H IVLG 12/09/18 22:00 01/08/19 21:59 12/11/18 06:56 Temazepam (Restoril) 15 mg HSPRN PRN ORAL Insomnia 12/09/18 21:45 12/16/18 21:44 Vancomycin HCl (Vanco rx to dose) 1 ea DAILY PRN MISC Per rx protocol 12/10/18 12:45 01/09/19 12:44 Vancomycin HCl 1 gm/Dextrose 275 ml @ 183.708 mls/hr Q8H IVPB 12/10/18 23:00 12/15/18 22:59 12/11/18 06:44 Vandana Ferrera M.D. Dec 11, 2018 12:09
--- NOTE | 2018-12-11 12:10 | NUR ---
NURSE NOTES: 1155am :Dr Todd called to follow up onpodiatry consult--Surgery and Infectios Disease stated they are waiting to hear from podiatry, however, this RN sees no evidence of a consult actually placed despite verbal confirmations from other health care providers.
[2018-12-11] MEDS: metroNIDAZOLE 500mg tab ORAL SCH ×2 (13:06→22:55)
--- NOTE | 2018-12-11 13:27 | CDS Physician Query ---
Clarification is required for compliance, coding accuracy, and to reflect severity of illness for this patient Dear Sergio Etienne Chi-Yesika DO Date: 12/11/2018 Peripatologist/CDS Name: Jone Medina Please select the most appropriate option: On Progress note under assessment/plan documented Malnutrition Albumin: 2.9--->2.5 [] Protein/Calorie Malnutrition [] Mild [] Moderate [] Severe [] Hypoalbuminemia [] Cachexia [] Underweight [] Intestinal malabsorption [] Other [] Unable to determine [] Not Applicable Present on Admission: [] Yes [] No [] Clinically Undetermined Physician signature Date Please also document in your Progress Notes and/or Discharge Summary and indicate if the condition was present on admission. MTDD
--- NOTE | 2018-12-11 13:28 | Consultation ---
Consult Note Assessment/Plan A/ 1) Possible abscess right foot 2) Cellulitis RLE 3) DM2 4) LLE deformity 2/2 knee surgery P/ 1) MRI reviewed and plantar wound was probed extensively and expressed - serosang drainage noted 2) Cultures right foot 3) Will monitor on abx. Patient states symptoms and pain are improving. 4) Cont wound care 5) Will follow Thank you Lorne Vincent DPM Dec 11, 2018 13:28
--- NOTE | 2018-12-11 13:44 | NUR ---
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 F/up w/ podiatry eval
--- NOTE | 2018-12-11 14:11 | Surgery Progress Note ---
Surgery Progress Note Subjective Additional Comments Patient seen and examined bedside. MRI noted. Podiatry input appreciated. Had extensive probing of the wound at bedside by podiatry today identifying serosanguineous fluid. Labs improved. Edema and cellulitis is improved. Objective Last 24 Hour Vital Signs Date Time Temp Pulse Resp B/P (MAP) Pulse Ox O2 Delivery O2 Flow Rate FiO2 12/11/18 12:00 97.6 73 20 153/93 (113) 94 12/11/18 12:00 84 12/11/18 09:57 98.0 12/11/18 09:00 Room Air 12/11/18 08:00 97.8 79 18 153/96 (115) 95 12/11/18 08:00 81 12/11/18 04:00 81 12/11/18 04:00 98.0 90 18 130/80 (97) 97 12/11/18 00:00 86 12/11/18 00:00 98.5 89 18 131/86 (101) 95 12/10/18 21:00 Room Air 12/10/18 20:00 99 12/10/18 20:00 97.3 97 18 135/84 (101) 95 12/10/18 16:00 93 12/10/18 16:00 97.5 95 18 139/79 (99) 100 I&O Intake and Output 12/10/18 12/11/18 19:00 07:00 Intake Total 620 ml 200 ml Output Total 1400 ml Balance -780 ml 200 ml Intake Oral 620 ml 200 ml Output Urine Total 1400 ml # Voids 5 Dressing: dry Wound: clean Cardiovascular: RSR Respiratory: clear Abdomen: soft, flat, present bowel sounds, non-distended Extremities: edema, no tenderness, no cyanosis Laboratory Tests Test 12/11/18 05:35 White Blood Count 11.6 K/UL (4.8-10.8) H Red Blood Count 3.68 M/UL (4.70-6.10) L Hemoglobin 11.2 G/DL (14.2-18.0) L Hematocrit 32.6 % (42.0-52.0) L Mean Corpuscular Volume 89 FL (80-99) Mean Corpuscular Hemoglobin 30.4 PG (27.0-31.0) Mean Corpuscular Hemoglobin Concent 34.3 G/DL (32.0-36.0) Red Cell Distribution Width 11.1 % (11.6-14.8) L Platelet Count 393 K/UL (150-450) Mean Platelet Volume 4.5 FL (6.5-10.1) L Neutrophils (%) (Auto) 70.0 % (45.0-75.0) Lymphocytes (%) (Auto) 19.3 % (20.0-45.0) L Monocytes (%) (Auto) 6.3 % (1.0-10.0) Eosinophils (%) (Auto) 3.5 % (0.0-3.0) H Basophils (%) (Auto) 0.9 % (0.0-2.0) Sodium Level 133 MMOL/L (136-145) L Potassium Level 3.8 MMOL/L (3.5-5.1) Chloride Level 98 MMOL/L (98-107) Carbon Dioxide Level 29 MMOL/L (21-32) Anion Gap 6 mmol/L (5-15) Blood Urea Nitrogen 5 mg/dL (7-18) L Creatinine 0.8 MG/DL (0.55-1.30) Estimat Glomerular Filtration Rate > 60 mL/min (>60) Glucose Level 156 MG/DL (74-106) H Calcium Level 9.2 MG/DL (8.5-10.1) Plan Problems: (1) Cellulitis Assessment & Plan: This is a 58-year-old male with worsening cellulitis of his right lower extremity. Patient with history of 3 total knee replacements as well as skin flaps for closure and bone infusions. States that this is been worsening over the past week but ongoing for about almost a month. Has 2 ulcers on the lateral midfoot. Leukocytosis, lactic acidosis, hyperglycemia. On examination no discrete abscess is identified. Mainly cellulitis. Tender warm with erythema Recommend IV antibiotics Leg elevation Plain films reviewed. MRI noted. Podiatry input appreciated. Had extensive probing of the wound at bedside by podiatry today identifying serosanguineous fluid. Labs improved. Edema and cellulitis is improved. cont abx We will follow with recommendations thank you (2) Foot ulcer (3) Sepsis Assessment & Plan: IV antibiotics as per infectious disease Okay for diet IV line for now may need PICC line for prolonged antibiotics we will discuss with infectious disease Further imaging pending A.m. labs Yelena,Hilton Dec 11, 2018 14:11
--- NOTE | 2018-12-11 15:09 | Diagnostic Imaging Report ---
Indication: Open wound, infection Technique: Sagittal, axial, and coronal T1 FSE and FSE STIR, precontrast and postcontrast sagittal and coronal T1 fat-saturated images were obtained of the right ankle Comparison: none Findings: There is edema of the medial, lateral, anterior and dorsal subcutaneous. Fat this enhances uniformly, without any focal nonenhancing area to suggest abscess. No evidence of bone marrow edema or bone marrow enhancement. The large tendons appear intact. Impression: Anterior, lateral, medial, dorsal soft tissue edema. This may be due to cellulitis or could be hemodynamic in origin Negative for evidence of osteomyelitis. No evidence of soft tissue abscess
[2018-12-11 16:00] VITALS: BP_SYST 147; BP_SYST 165; BP_DIAS 64; BP_DIAS 88
[2018-12-11 20:00] VITALS: BP 138/79
--- NOTE | 2018-12-11 20:16 | NUR ---
NURSE NOTES: Gave report to GAGAN medina.
--- NOTE | 2018-12-11 20:17 | NUR ---
NURSE NOTES: Received report from Ronal Torres. Pt in bed, awake and in no acute distress. Breathing even and unlabored. IV line intact and patent. Bed in lowest position. Call lights within reach. Will continue plan of care.
[2018-12-12] VITALS: BP 140/76
[2018-12-12 04:00] VITALS: BP 135/71
--- NOTE | 2018-12-12 05:30 | Consultation ---
DATE OF CONSULTATION: 12/11/2018 CONSULTING PHYSICIAN: Lorne Rodrigues D.P.M. REQUESTING PHYSICIAN: Sergio Felix D.O. REASON FOR CONSULTATION: Chronic ulcer, right foot, cellulitis, lower extremity infection, diabetes mellitus. HISTORY OF PRESENT ILLNESS: The patient is a 58-year-old male, who was admitted to [facility] on 12/09/2018 for the above diagnoses. The patient states that he has been having chronic issues with his right foot wound, which is healed and then reoccurred. The current episode began about 1 month ago and reopened. There was a engineering specialist who was coming to his residence and caring for the wound and noted that over the past few days, the wound has been getting worse with increased redness, swelling, and pain. The patient sought emergent care. PAST MEDICAL HISTORY: Significant for hypertension, diabetes mellitus, and schizophrenia. PAST SURGICAL HISTORY: Significant for multiple right knee surgeries. ALLERGIES: He has no known drug allergies. MEDICATIONS: Per MAR and include vancomycin and Flagyl. SOCIAL HISTORY: Noncontributory. FAMILY HISTORY: Noncontributory. REVIEW OF SYSTEMS: HEENT: The patient denies headaches, blurred vision, or ringing in the ears. CARDIOVASCULAR: The patient denies any chest pain or shortness of breath. GENITOURINARY: The patient denies any urgency, frequency, burning upon urination, or hematuria. GASTROINTESTINAL: The patient denies any constipation, diarrhea, or blood in the stool. PHYSICAL EXAMINATION: VITAL SIGNS: Temperature is 97.6, pulse is 83, respiration rate is 20, blood pressure is 153/93, saturating 94% on room air. EXTREMITIES: Lower extremity physical exam, vascular, palpable pedal pulses are noted bilaterally. Right foot is warm than the left. He has pedal edema on the right lower extremity. No edema noted on the left. DERMATOLOGICAL: Left foot is unremarkable. Right foot, there are 2 wounds noted on the plantar aspect of the right foot, one close to his metatarsal heads, the other close to the sulcus of the toes. The one that is close to the sulcus of the toes is more superficial with granular base. No discharge is noted from the site, does not probe, 1 close to the metatarsal head looks stable. No signs of gross infection are noted. MUSCULOSKELETAL: No gross deformity of the left lower extremity noted. Right lower extremity is noted to have a contracture of the ankle, it is more in a plantar flexed position. Forefoot is prominent on the left foot. He has 4/5 muscle strength noted in the anterolateral and posterior muscle groups of bilateral lower extremities. NEUROLOGICAL: Protective threshold is diminished. LABORATORY DATA: White blood cell count is 11.7, came down from admission of 16.0, hemoglobin and hematocrit is 11.2 and 32.6, and platelet count is 394. Sedimentation rate is 84. Potassium is 3.8, BUN is 5, creatinine is 0.8, and glucose is 156. Hemoglobin A1c is 8.1. C-reactive protein is 16.2. INR is 0.9. IMAGING: Right foot x-rays showed no definitive findings suggestive of osteomyelitis. No acute bone trauma is noted. Right tib-fib x-rays show indistinct to the medial malleolar cortex, physiological should be considered, changes described. MRI of the right foot shows a 24 x 8 x 8 mm abscess on the undersurface of the foot in his second metatarsal head in the second metatarsophalangeal joint. No evidence of osteomyelitis. A small joint effusion noted of the second metatarsophalangeal joint, which is nonspecific as to whether it is infected or not. MRI of the right ankle shows edema, negative for osteomyelitis, no evidence of soft tissue abscess. ASSESSMENT: 1. Possible abscess of the right foot. 2. Cellulitis, right lower extremity. 3. Type 2 diabetes mellitus, uncontrolled. 4. Left lower extremity deformity secondary to multiple knee surgeries. PLAN: 1. MRI was reviewed. The plantar wound was probed extensively and expressed. Serosanguineous drainage was noted. 2. Cultures of the right foot were obtained. 3. We will continue on antibiotics. The patient states symptoms of pain are improving, so is leukocytosis. From images, it is noted that the clinical appearance is also improving as well as the appearance of skin wounds due to receding infection and decrease in edema. 4. Continue wound care as ordered. 5. We will follow. Thank you for the courtesy of this consultation, Dr. Felix. Lorne Rodrigues D.P.M. DR: JEFERSON JOB#: [id number] CC:
[2018-12-12] MEDS: metroNIDAZOLE 500mg tab ORAL SCH (05:35)
[2018-12-12] MEDS: Morphine Sulfate 2mg/ml Inj(IV/IM USE ONLY) IVP PRN ×2 (05:35→11:29)
[2018-12-12] MEDS: Vancomycin 1gm/D5W 275ml IVPB SCH ×2 (06:01)
[2018-12-12] MEDS: NovoLOG Insulin Flexpen SUBQ SCH ×2 (06:54→12:04)
--- NOTE | 2018-12-12 07:15 | Consultation ---
DATE OF CONSULTATION: 12/11/2018 NOTE: POOR AUDIO PSYCHOTHERAPY CONSULTATION PROGRESS NOTE CONSULTING PHYSICIAN: Travis May PsyD. TREATING ATTENDING: Sergio Felix D.O. HISTORY OF PRESENT ILLNESS: The patient is a 58-year-old male patient from [facility]. Apparently, the patient was found to have red and hot. The patient does have a history of possible schizophrenia and anxiety, and for these reasons, he was referred to psychotherapeutic services. . The patient states that he has a history of also bipolar disorder and schizoaffective disorder as well. He states that he has not taken his psychotropic medications. He has not seen his psychiatrist for several years. . He states that he has current medical condition. He mood lability denies suicidal or homicidal thoughts of ideation. Denies any auditory or visual hallucinations. at this time. The patient current condition. PAST MEDICAL HISTORY: History of diabetes and hypertension. ALLERGIES: The patient has no known drug allergies. SUBSTANCE ABUSE HISTORY: The patient denies history of alcohol or illicit substance use. He has a history of smoking cigarettes. PSYCHIATRIC HISTORY: The patient has schizoaffective disorder and has been treated with psychotropic medications in the past. SOCIAL HISTORY: The patient is a single 58-year-old male patient from [facility]. Financially sustained through [facility]. MENTAL STATUS EXAMINATION: The patient is alert and oriented to person, place, time, and situation. Mood is anxious. Affect is congruent. Thought process . Thought content, . Poor insight, judgement, and impulse control. DIAGNOSIS: Rule out schizoaffective disorder, bipolar type. I ASSESSED THIS PATIENT: paranoia and irritability. However, today, he feels . Supportive psychotherapy, emotional distress . cognitive behavioral therapy positive coping skills and positive thought process . Plan is to continue current medication compliance positive coping skills to stabilize mood, thoughts, and behavior . This clinician has reviewed the patient's chart. Discussed treatment with treatment team. Psychotherapy provided to this patient, 50 minutes. Travis May PsyD. DR: Roque JOB#: [id number] CC:
[2018-12-12 07:18] LABS: BASOPHILS % (AUTO) 0.5 % (0.0-2.0); EOSINOPHILS % (AUTO) 4.7 % (0.0-3.0); HEMATOCRIT 35.5 % (42.0-52.0); HEMOGLOBIN 12.2 G/DL (14.2-18.0); LYMPHOCYTES % (AUTO) 17.4 % (20.0-45.0); MEAN CORPUSCULAR VOLUME 88 FL (80-99); MONOCYTES % (AUTO) 7.6 % (1.0-10.0); NEUTROPHILS % (AUTO) 69.8 % (45.0-75.0); PLATELET COUNT 451 K/UL (150-450); RED BLOOD COUNT 4.03 M/UL (4.70-6.10); WHITE BLOOD COUNT 11.3 K/UL (4.8-10.8)
--- NOTE | 2018-12-12 07:20 | NUR ---
NURSE NOTES: Received report from GAGAN Clements. The patient is resting on the bed without acute distress or shortness of breath. The patient's bed in the lowest position, call light in reach, and fall and aspiration precaution reinforced. IV site intact and patent. Will continue plan of care.
[2018-12-12 07:37] LABS: ANION GAP 8 mmol/L (5-15); BLOOD UREA NITROGEN 9 mg/dL (7-18); CALCIUM 9.3 MG/DL (8.5-10.1); CARBON DIOXIDE 28 MMOL/L (21-32); CHLORIDE 98 MMOL/L (98-107); CREATININE 0.8 MG/DL (0.55-1.30); SODIUM 134 MMOL/L (136-145)
--- NOTE | 2018-12-12 07:50 | NUR ---
HAND-OFF: Report given to Rebecca FARAH. Plan of care endorsed.
[2018-12-12 08:00] VITALS: BP 144/66
--- NOTE | 2018-12-12 09:04 | General Progress Note ---
Assessment/Plan Problem List: (1) HTN (hypertension) ICD Codes: I10 - Essential (primary) hypertension SNOMED: 84542917 (2) Diabetes ICD Codes: E11.9 - Type 2 diabetes mellitus without complications SNOMED: 06237143 (3) Anemia ICD Codes: D64.9 - Anemia, unspecified SNOMED: 159437719 (4) Malnutrition ICD Codes: E46 - Unspecified protein-calorie malnutrition SNOMED: 20332217 (5) Sepsis ICD Codes: A41.9 - Sepsis, unspecified organism SNOMED: 11673220 (6) Chronic pain ICD Codes: G89.29 - Other chronic pain SNOMED: 86483175 (7) Cellulitis ICD Codes: L03.90 - Cellulitis, unspecified SNOMED: 621139391 (8) Foot ulcer ICD Codes: L97.509 - Non-pressure chronic ulcer of other part of unspecified foot with unspecified severity SNOMED: 71767599 Status: stable, progressing Assessment/Plan: wound care abx pain control cbc bmp am aru eval Subjective Constitutional: Reports: weakness Allergies: Coded Allergies: NO KNOWN ALLERGIES (Unverified Allergy, Unknown, 02/08/15) All Systems: reviewed and negative except above Subjective calm in bed Objective Last 24 Hour Vital Signs Date Time Temp Pulse Resp B/P (MAP) Pulse Ox O2 Delivery O2 Flow Rate FiO2 12/12/18 08:00 98.0 71 20 144/66 (92) 98 12/12/18 04:00 80 12/12/18 04:00 98.2 78 20 135/71 (92) 99 12/12/18 00:00 98.0 72 20 140/76 (97) 98 12/11/18 21:00 Room Air 12/11/18 20:00 98.1 77 20 138/79 (98) 98 12/11/18 20:00 97 12/11/18 18:49 98.3 12/11/18 16:00 79 12/11/18 16:00 98.3 82 20 147/88 (107) 96 12/11/18 12:00 97.6 73 20 153/93 (113) 94 12/11/18 12:00 84 Intake and Output 12/11/18 12/12/18 18:59 06:59 Intake Total 360 ml Output Total 2050 ml 1200 ml Balance -1690 ml -1200 ml Intake Oral 360 ml Output Urine Total 2050 ml 1200 ml # Voids 5 Laboratory Tests 12/11/18 14:20: Vancomycin Level Trough 13.5H 12/12/18 05:40: White Blood Count 11.3H, Red Blood Count 4.03L, Hemoglobin 12.2L, Hematocrit 35.5L, Mean Corpuscular Volume 88, Mean Corpuscular Hemoglobin 30.2, Mean Corpuscular Hemoglobin Concent 34.3, Red Cell Distribution Width 11.0L, Platelet Count 451H, Mean Platelet Volume 4.2L, Neutrophils (%) (Auto) 69.8, Lymphocytes (%) (Auto) 17.4L, Monocytes (%) (Auto) 7.6, Eosinophils (%) (Auto) 4.7H, Basophils (%) (Auto) 0.5, Sodium Level 134L, Potassium Level 4.0, Chloride Level 98, Carbon Dioxide Level 28, Anion Gap 8, Blood Urea Nitrogen 9, Creatinine 0.8, Estimat Glomerular Filtration Rate > 60, Glucose Level 166H, Calcium Level 9.3 Height (Feet): 5 Height (Inches): 11.00 Weight (Pounds): 265 General Appearance: lethargic EENT: normal ENT inspection Neck: normal alignment Cardiovascular: normal peripheral pulses, normal rate, regular rhythm Respiratory/Chest: chest wall non-tender, lungs clear, normal breath sounds Abdomen: normal bowel sounds, non tender, soft Extremities: normal inspection Edema: no edema noted Arm (L), no edema noted Arm (R), no edema noted Leg (L), no edema noted Leg (R), no edema noted Pedal (L), no edema noted Pedal (R), no edema noted Generalized Neurologic: motor weakness Skin: normal pigmentation, warm/dry Sergio Fleix DO Dec 12, 2018 09:04
[2018-12-12] MEDS: cefTRIAXone 1 GM in D5W 55 ML IVPB SCH (09:17)
[2018-12-12] MEDS: Docusate 100mg cap ORAL SCH (09:17)
[2018-12-12] MEDS: Heparin 5000 units/ml inj SUBQ SCH (09:18)
--- NOTE | 2018-12-12 10:10 | NUR ---
NURSE NOTES: The patient is stable without acute distress or shortness of breath. Will continue plan of care.
--- NOTE | 2018-12-12 11:02 | NUR ---
DISCHARGE PLANNING DISCHARGE ORDER NOTED Patient has been accepted to; Jose L @ [facility] [place] [id number] [place] [address] for Nurse to Nurse report [facility] ETA for transportation: 13:00 Addendum: 12/12/18 at 1132 by DAVID PLASCENCIA RN RN [phone]
[2018-12-12 12:00] VITALS: BP 145/94
--- NOTE | 2018-12-12 12:27 | NUR ---
NURSE NOTES: Confirmed with Dr. Felix regarding the discharge order. Per Dr. Felix, continue hospital medication and discontinue home medication. Communicated with the charge nurse regarding the patient's important home medication and left message to Dr. Felix for confirmation of discontinuation of hospital medication. Communicated with Dr. Ferrera regarding continuation of antibiotics and received order. Will continue plan of care. Addendum: 12/12/18 at 1349 by Mauriico Ortega RN *left message to Dr. Felix for confirmation of discontinuation of home medication.
--- NOTE | 2018-12-12 12:29 | Infectious Diseases Prog Note ---
Assessment/Plan Assessment/Plan Assessment: RLE cellulitis; improving -R tibia/fibula xray: Indistinct as to the medial malleolar cortex. Probably physiologic but the possibility of acute osteomyelitis should be considered. Correlate with clinical findings. Postsurgical changes as described. No acute bony trauma -R knee xray Postsurgical changes, as described. No definite acute process. However, given the extent of postsurgical changes, superimposed acute trauma or infection is difficult to confidently exclude R diabetic foot ulcers w/ deep abscess -12/12 s/p bedside debridement -MRI R ankle/: Anterior, lateral, medial, dorsal soft tissue edema. This may be due to cellulitis or could be hemodynamic in origin. Negative for evidence of osteomyelitis. No evidence of soft tissue abscess -MRI R foot: Findings consistent with a small 24 x 8 x 8 mm abscess in the plantar surface of the foot superficial to the second metatarsal head and second metatarsal phalangeal joint with surrounding cellulitis. This appears to be deep to the clinically apparent ulcer. No evidence of osteomyelitis. Small joint effusion of the second metatarsal phalangeal joint. Findings are nonspecific as to whether this is infected or not. Dorsal edema of the subcutaneous fat. This could indicate cellulitis or could be hemodynamic in origin. -foot Xray: Limited exam, as described. No definite findings to suggest acute osseous myelitis. Afebrile Leukocytosis, improving Dm2 HLD HTN s/p PPM schizophrenia hx of R diabetic foot MRSA infection 06/2017 RLE total knee replacements x3 and skin flap Plan: -Continue Ceftriaxone #3 (abx d #06/15) and continue IV Vancomycin #/ -add PO Flagyl #2/10 for anaerobic coverage -12/10 SP Zosyn #2 -f/u cx -Monitor CBC/CMP, temperatures -podiatry eval -sx f/u Thank you for this consultation. Will continue to follow along with you. Discussed with RN Subjective Allergies: Coded Allergies: NO KNOWN ALLERGIES (Unverified Allergy, Unknown, 02/08/15) Subjective afebrle wbc improving Objective Vital Signs Last 24 Hour Vital Signs Date Time Temp Pulse Resp B/P (MAP) Pulse Ox O2 Delivery O2 Flow Rate FiO2 12/12/18 09:00 Room Air 12/12/18 08:00 98.0 71 20 144/66 (92) 98 12/12/18 04:00 80 12/12/18 04:00 98.2 78 20 135/71 (92) 99 12/12/18 00:00 98.0 72 20 140/76 (97) 98 12/11/18 21:00 Room Air 12/11/18 20:00 98.1 77 20 138/79 (98) 98 12/11/18 20:00 97 12/11/18 18:49 98.3 12/11/18 16:00 79 12/11/18 16:00 98.3 82 20 147/88 (107) 96 Height (Feet): 5 Height (Inches): 11.00 Weight (Pounds): 265 Objective General appearance: alert, cooperative, no distress, appears stated age Head: Normocephalic, without obvious abnormality, atraumatic Eyes: conjunctivae/corneas clear. PERRL, EOM's intact. Fundi benign Throat: Lips, mucosa, and tongue normal. Teeth and gums normal Neck: supple, symmetrical, trachea midline, no adenopathy, thyroid: not enlarged, symmetric, no tenderness/mass/nodules, no carotid bruit and no JVD Lungs: clear to auscultation bilaterally Heart: regular rate and rhythm, S1, S2 normal, no murmur, click, rub or gallop Abdomen: soft, non-tender. Bowel sounds normal. No masses, no organomegaly Extremities: extremities edema Pulses: 2+ and symmetric Skin: Skin color, texture, turgor normal. No rashes or lesions Neurologic: Grossly normal Microbiology Date/Time Source Procedure Growth Status 12/09/18 14:20 Blood Blood Culture - Preliminary NO GROWTH AFTER 48 HOURS Resulted 12/09/18 14:05 Blood Blood Culture - Preliminary NO GROWTH AFTER 48 HOURS Resulted 12/09/18 15:00 Nasal Nares MRSA Culture - Final NO METHICILLIN RESISTANT STAPH AUREUS... Complete 12/11/18 13:00 Foot Right Gram Stain - Final Resulted 12/11/18 13:00 Foot Right Wound Culture - Preliminary NO GROWTH Resulted 12/09/18 15:00 Rectum - Final NO CARBAPENEM-RESISTANT ENTEROBACTERI... Complete 12/09/18 15:00 Rectum VRE Culture - Final NO VANCOMYCIN RESISTANT ENTEROCOCCUS ... Complete Laboratory Tests Test 12/11/18 14:20 12/12/18 05:40 Vancomycin Level Trough 13.5 ug/mL (5.0-12.0) H White Blood Count 11.3 K/UL (4.8-10.8) H Red Blood Count 4.03 M/UL (4.70-6.10) L Hemoglobin 12.2 G/DL (14.2-18.0) L Hematocrit 35.5 % (42.0-52.0) L Mean Corpuscular Volume 88 FL (80-99) Mean Corpuscular Hemoglobin 30.2 PG (27.0-31.0) Mean Corpuscular Hemoglobin Concent 34.3 G/DL (32.0-36.0) Red Cell Distribution Width 11.0 % (11.6-14.8) L Platelet Count 451 K/UL (150-450) H Mean Platelet Volume 4.2 FL (6.5-10.1) L Neutrophils (%) (Auto) 69.8 % (45.0-75.0) Lymphocytes (%) (Auto) 17.4 % (20.0-45.0) L Monocytes (%) (Auto) 7.6 % (1.0-10.0) Eosinophils (%) (Auto) 4.7 % (0.0-3.0) H Basophils (%) (Auto) 0.5 % (0.0-2.0) Sodium Level 134 MMOL/L (136-145) L Potassium Level 4.0 MMOL/L (3.5-5.1) Chloride Level 98 MMOL/L (98-107) Carbon Dioxide Level 28 MMOL/L (21-32) Anion Gap 8 mmol/L (5-15) Blood Urea Nitrogen 9 mg/dL (7-18) Creatinine 0.8 MG/DL (0.55-1.30) Estimat Glomerular Filtration Rate > 60 mL/min (>60) Glucose Level 166 MG/DL (74-106) H Calcium Level 9.3 MG/DL (8.5-10.1) Current Medications Medications (Trade) Dose Ordered Sig/Azar Route PRN Reason Start Time Stop Time Status Last Admin Dose Admin Acetaminophen (Tylenol) 650 mg Q4H PRN ORAL fever (temp>100.5F) 12/09/18 21:45 01/08/19 21:44 Al Hydroxide/Mg Hydroxide (Mylanta II) 30 ml Q6H PRN ORAL dyspepsia 12/09/18 21:45 01/08/19 21:44 Bisacodyl (Dulcolax) 10 mg HSPRN PRN RECTAL Constipation 12/09/18 21:45 01/08/19 21:44 Ceftriaxone Sodium 1 gm/ Dextrose 55 ml @ 110 mls/hr DAILY IVPB 12/10/18 15:00 12/17/18 14:59 12/12/18 09:17 Dextrose (Dextrose 50%) 25 ml Q30M PRN IV Hypoglycemia 12/09/18 20:15 01/08/19 20:14 Dextrose (Dextrose 50%) 50 ml Q30M PRN IV Hypoglycemia 12/09/18 20:15 01/08/19 20:14 Diphenhydramine HCl (Benadryl) 25 mg Q6H PRN ORAL Itching/Pruritis 12/09/18 21:45 01/08/19 21:44 Docusate Sodium (Colace) 100 mg EVERY 12 HOURS ORAL 12/10/18 09:00 01/09/19 08:59 12/12/18 09:17 Famotidine (Pepcid) 40 mg DAILY ORAL 12/10/18 09:00 01/09/19 08:59 12/12/18 09:17 Gadobutrol (Gadavist) 7.5 mmol NOW PRN IV Radiology Procedure 12/10/18 14:45 12/14/18 14:45 Gadobutrol (Gadavist) 7.5 mmol NOW PRN IV Radiology Procedure 12/10/18 14:45 12/14/18 14:45 Heparin Sodium (Porcine) (Heparin 5000 units/ml) 5,000 units EVERY 12 HOURS SUBQ 12/10/18 09:00 01/09/19 08:59 12/12/18 09:18 Insulin Aspart (NovoLOG) BEFORE MEALS AND HS SUBQ 12/09/18 21:00 01/08/19 20:59 12/12/18 12:04 Lorazepam (Ativan) 1 mg Q4H PRN ORAL For Anxiety 12/09/18 21:45 12/16/18 21:44 Magnesium Hydroxide (Mom) 30 ml HSPRN PRN ORAL Constipation 12/09/18 21:45 01/08/19 21:44 Metronidazole (Flagyl) 500 mg Q8HR ORAL 12/11/18 14:00 12/18/18 13:59 12/12/18 05:35 Morphine Sulfate (Morphine Sulfate) 2 mg Q4H PRN IVP Moderate Pain (Pain Scale 4-6) 12/09/18 21:45 12/16/18 21:44 12/12/18 11:29 Ondansetron HCl (Zofran) 4 mg Q6H PRN IVP Nausea & Vomiting 12/09/18 21:45 01/08/19 21:44 Sodium Chloride 1,000 ml @ 100 mls/hr Q10H IVLG 12/09/18 22:00 01/08/19 21:59 12/12/18 09:19 Temazepam (Restoril) 15 mg HSPRN PRN ORAL Insomnia 12/09/18 21:45 12/16/18 21:44 Vancomycin HCl (Vanco rx to dose) 1 ea DAILY PRN MISC Per rx protocol 12/10/18 12:45 01/09/19 12:44 Vancomycin HCl 1 gm/Dextrose 275 ml @ 183.708 mls/hr Q8H IVPB 12/10/18 23:00 12/15/18 22:59 12/12/18 06:01 Vandana Ferrera M.D. Dec 12, 2018 12:29
[2018-12-12] MEDS ORDERED: VANCOMYCIN500 MG/100 IV ×3 (12:31→12:38)
[2018-12-12] MEDS ORDERED: CEFTRIAXON1 GM/50 ML IV ×2 (12:33→12:38)
[2018-12-12] MEDS ORDERED: METRONIDAZOLE500 MG ORAL ×2 (12:38→13:02)
[2018-12-12] MEDS ORDERED: DOCUSATE SODIU100 MG ORAL (13:10)
[2018-12-12] MEDS ORDERED: FAMOTIDINE40 MG ORAL (13:11)
[2018-12-12] MEDS ORDERED: NOVOLOG100 UNITS1 (13:11)
[2018-12-12] MEDS ORDERED: NS 275ml ONE (13:39)
[2018-12-12] MEDS ORDERED: Tubing IV Secondary IV ONE (13:39)
--- NOTE | 2018-12-12 13:40 | NUR ---
NURSE NOTES: Report given to GAGAN Pinto who is a receiving nurse @ [facility]. Course of hospitalization and received care explained to Millie. Discharge order per Dr. Felix and Dr. Ferrera explained to Millie, who is a receiving nurse. Notified Waldo Cuadra regarding the patient's transfer to [facility]. Gave report to EMS @ [facility] ambulance regarding the patient's condition. Discharge instruction given to the patient and Millie and signed by the patient. Belongings checked with the patient and signed by the patient. The patient will be on Flagyl 500mg 1tab PO Q8hr for 8 days, Vancomycin 1gm IVPB Q8hr for 10 days, and Ceftriaxone 1gm IVPB QD for [address] Ferrera's order and explained to the patient and Millie. Due to antibiotics therapy, IV was not removed under Millie, receiving nurse's request and under doctor's permission. Telebox was removed by the primary nurse. The patient's skin is intact other than right lower extremity cellulitis and right foot ulcer, and the dressing changed upon discharge. Upon discharge,the patient denies of acute distress or shortness of breath. The patient's physical symptoms and vital signs were stable upon discharge. The patient got transported via gurney to [facility] in a safe manner.
--- NOTE | 2018-12-12 15:33 | Cardiology Report ---
APPROVED REPORT EKG Measurement Heart [id number] [place] [id number] [id number] Sinus tachycardia Low voltage QRS T wave abnormality, consider inferior ischemia Abnormal ECG
--- NOTE | 2018-12-13 18:45 | Progress Note ---
DATE: 12/12/2018 PSYCHOTHERAPY CONSULTATION PROGRESS NOTE TREATING ATTENDING: Sergio Felix D.O. HISTORY OF PRESENT ILLNESS: This patient is a male patient, 58 years old. The patient has been very cooperative on the treatment milieu. He states that he has got . He states that he has no significant sepsis at this time. He states that there is no significant level of anxiety or irritability today. He has been fairly stable in his mood. He denies suicidal or homicidal thoughts of ideation. He denies any auditory or visual hallucinations. The patient . At this time, he was discussing how he is going to cope with possible mood lability. He is experiencing thoughts of having and alert and oriented to person, place, time, and situation. Mood is anxious. Affect blunted. Thought process are limited. Fair attention and concentration. Fair insight, judgment, and impulse control. TODAY, I ASSESSED THE PATIENT AND PROVIDED THE PATIENT WITH: 1. Reality orientation with a focus on improving cognitive function of the patient, who is very confused and disorganized. Oriented to person, place, time, and situation. 2. Provided the patient with supportive psychotherapy, which would provide the patient means to be able to respond or verbalize the patient's moods and thoughts. However, the patient remains a very poor historian. Unable to care for his basic needs and requires continued hospitalization for effective stabilization. PLAN: Plan is to maintain medication compliance, assist with positive coping skills, and stabilizing thoughts and behavior. Psychotherapy provided to this patient is 20 minutes. This clinician has reviewed the patient's chart and discussed with treatment team. Travis May PsyD. DR: NORMAN JOB#: [id number] CC:
--- NOTE | 2018-12-14 14:35 | Discharge Summary ---
Discharge Summary Discharge Summary _ DATE OF ADMISSION: 12/09/2018 DATE OF DISCHARGE: 12/12/2018 DISCHARGED BY: Dr. Sergio Felix CONSULTANTS: Vandana May PsyD BRIEF HOSPITAL COURSE: Patient is a 58-year-old male, who lives at home, presented to ED due to 1 week increased swelling to the right leg. He has history of hypertension, diabetes and schizophrenia. He has prior history of diabetic foot ulcer with MRSA. He noted to ulcers with opening on the sole of his foot as well as redness spreading over the foot and the leg. He complains of pain and warmth, there was no purulent discharge. Upon evaluation at the ED, blood work showed WBC of 16. Hemoglobin 12, hematocrit 35. Sodium was 122. Potassium 4.0. BUN 9 and creatinine 1.2. Glucose was 268. Magnesium 1.3 x-ray of the right foot showed soft tissue swelling with no evidence of osteomyelitis, fracture or dislocation. He was given IV fluids. He remained tachycardic. Septic work-up was initiated. Lactic acid elevated to 3.8. EKG did not show any evidence of ischemia. He was then admitted for evaluation of Cellulitis with hyponatremia and hypomagnesemia. Surgical evaluation was done. Patient has 2 ulcers on the lateral midfoot. On examination, there was no discrete abscess identified. Recommended leg elevation. He was given ceftriaxone and IV vancomycin. MRI of the right foot and ankle showed small abscess in the plantar surface of the foot superficial to the second metatarsal head and second metatarsal phalangeal joint with surrounding cellulitis. No evidence of osteomyelitis. P.o. Flagyl was added for added anaerobic coverage. Podiatry was consulted. MRI was reviewed. Plantar wound was probed extensively and expressed. Serosanguineous drainage was noted. Cultures were sent. Images were reviewed. Noted the clinical appearance improving as well as appearance of skin wounds due to receding infection and decrease in edema. He was continued on wound care. He was provided with reality orientation and psychotherapy. Wound culture showed growth of MRSA. Patient was eventually transferred to [facility] [place]. FINAL DIAGNOSES: Right lower extremity cellulitis Sepsis Right diabetic foot ulcer with deep abscess Diabetes mellitus type 2 Hyperlipidemia Hypertension Pacemaker status Schizophrenia Prior right lower extremity total knee replacement x3 with skin flap Anemia Malnutrition Chronic pain DISPOSITION: Patient was transferred to [facility]. DISCHARGE MEDICATIONS: Refer to Discharge Medication List. I have been assigned to complete a discharge summary on this account, I was not involved with the patient's management.--MARJORIE Segal Jacqueline Robles NP Dec 14, 2018 14:35
== END 2018-12-12 13:40 | disposition short-term general hospital (02) | DRG 872 ==
LOC: EDBD 13:35 → EDUNIT# 13:35 → EMR 14:20 → 2E 14:26 → EDBEDREQ 15:22
DX: A41.9 Sepsis, unspecified organism (principal); L03.115 Cellulitis of right lower limb; L02.611 Cutaneous abscess of right foot; E44.0 Moderate protein-calorie malnutrition; E11.621 Type 2 diabetes mellitus with foot ulcer; L97.519 Non-pressure chronic ulcer of other part of right foot with unspecified severity; Z95.0 Presence of cardiac pacemaker; E78.5 Hyperlipidemia, unspecified; I10 Essential (primary) hypertension; F20.9 Schizophrenia, unspecified; Z96.651 Presence of right artificial knee joint; D64.9 Anemia, unspecified; G89.29 Other chronic pain; Z79.4 Long term (current) use of insulin; Z86.14 Personal history of Methicillin resistant Staphylococcus aureus infection
CPT/HCPCS: 36415; 80048; 80053; 80061; 80202; 81003; 82962; 83036; 83605; 83735; 84100; 85025; 85610; 85651; 85730; 86140; 87040; 87070; 87081; 87181; 87205; 93005; 96365; 96366; 96367; 96368; 99291; A9585; J1815; J7030

== ENCOUNTER 2018-12-25 16:20 | Inpatient (IN) | payer MEDICARE, MEDICAID ==
[~2018-12-25] VITALS: Ht 180.3 cm; Wt 124.7 kg
[~2018-12-25 16:20] MED LIST changes: -ATORVASTATIN CA20 MG; +ATORVASTATIN CA20 MG PO; +CEFTRIAXON1 GM/50 ML IV; +DOCUSATE SODIU100 MG ORAL; +FAMOTIDINE40 MG ORAL; +METRONIDAZOLE500 MG ORAL; -NIFEDIPINE ER60 M3; +NIFEDIPINE ER60 M3 PO; +NOVOLOG100 UNITS1; +TRULICITY1.5 MG/0.5 SQ; +VANCOMYCIN500 MG/100 IV
--- NOTE | 2018-12-25 16:35 | NUR ---
ED Nurse Note: Pt LORENZA from [facility] d/t tachycardia, fever, and SOB. Temp was 98.3 on scene per ambulance personnel. On room air saturating 93%. 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 Denies CP/N/V at this time. ERMD at bedside.
[2018-12-25 16:46] VITALS: BP 109/57
--- NOTE | 2018-12-25 17:25 | Emergency Room Report ---
History of Present Illness General Chief Complaint: Fever Source: Patient, Medical Record Present Illness HPI Disclaimer: Please note that this report is being documented using DRAGON technology. This can lead to erroneous entry secondary to incorrect interpretation by the dictating instrument. HPI: 58-year-old male with a history of diabetes, chronic foot ulcer presenting from [facility] for evaluation of tachycardia and fever. The patient states he began to feel weak, short of breath and had a nonproductive cough yesterday. Denies any abdominal pain, vomiting, or chest pain but does note some loose stools. Denies hematemesis or hematochezia. Denies melena. Reported a headache yesterday but this is now resolved. Denies any changes in vision, sore throat, nasal congestion, back pain or rash. He feels rundown in general and notes mild shortness of breath. Has not taken any medication prior to arrival. PMH: Diabetes, foot ulcer PSH: Right lower extremity bone fusion Allergies: Denies Social Hx: Regular smoker, occasional alcohol use Allergies: Coded Allergies: NO KNOWN ALLERGIES (Unverified Allergy, Unknown, 02/08/15) Nursing Documentation-PMH Past Medical History: No History, Except For Hx Cardiac Problems: Yes Hx Hypertension: Yes Hx Diabetes: Yes Review of Systems All Other Systems: negative except mentioned in HPI Physical Exam Vital Signs Date Time Temp Pulse Resp B/P (MAP) Pulse Ox O2 Delivery O2 Flow Rate FiO2 12/25/18 16:25 98.2 108 28 84/50 (61) 99 Nasal Cannula 2.0 General: Awake and alert, no acute distress, hypotensive HEENT: NC/AT. EOMI. PERRLA. Anicteric sclera. Dry mucous membranes Cardiovascular: Tachycardic. S1 and S2 normal. No murmur appreciated Resp: Tachypnea. On 2 L nasal cannula. No cough, wheezing or crackles appreciated Abdomen: Abdomen is soft, nondistended. Nontender Skin: Intact. No abrasions, laceration or rash over the exposed skin MSK: Normal tone and bulk. Moving all extremities. No obvious deformity. Neuro: Awake and alert. Mentating appropriately. Procedures Critical Care Time Critical Care Time Total critical care time: Approximately 31 minutes Due to a high probability of clinically significant, life threatening deterioration, the patient required the highest level of preparedness to intervene emergently and I personally spent this critical care time directly and personally managing the patient. This critical care time included obtaining a history, examining the patient, pulse oximetry, ordering and reviewing studies , ordering treatments, evaluating response to treatment and updating management plan as needed, frequent reassessment and discussion with other providers as well as arranging for ultimate disposition. This critical to care time was performed to assess and manage the high probability of life-threatening deterioration that could result in multiorgan failure. This critical care time is separate from the separately billable procedures and treating other patients. Medical Decision Making Diagnostic Impression: Primary Impression: Sepsis associated hypotension Additional Impressions: Acidosis RASHMI (acute kidney injury) URI (upper respiratory infection) ER Course Is a 58-year-old male presenting for evaluation of tachycardia and reported fevers at his alf facility today complaining of 1 day of cough. Patient arrives tachycardic, tachypneic, hypotensive. Concern for sepsis, likely from a pulmonary origin, is strongest at this point however we will start a broad metabolic and infectious work-up. Patient will have EKG, chest x- ray, broad labs, blood cultures and start sepsis fluids at 30 cc/kg. He is afebrile here on arrival. Will require admission. Laboratory Tests Test 12/25/18 17:15 12/25/18 18:32 12/25/18 19:00 White Blood Count 12.6 K/UL (4.8-10.8) H Red Blood Count 4.18 M/UL (4.70-6.10) L Hemoglobin 12.2 G/DL (14.2-18.0) L Hematocrit 36.6 % (42.0-52.0) L Mean Corpuscular Volume 87 FL (80-99) Mean Corpuscular Hemoglobin 29.2 PG (27.0-31.0) Mean Corpuscular Hemoglobin Concent 33.3 G/DL (32.0-36.0) Red Cell Distribution Width 10.9 % (11.6-14.8) L Platelet Count 349 K/UL (150-450) Mean Platelet Volume 5.6 FL (6.5-10.1) L Neutrophils (%) (Auto) 88.0 % (45.0-75.0) H Lymphocytes (%) (Auto) 4.9 % (20.0-45.0) L Monocytes (%) (Auto) 5.8 % (1.0-10.0) Eosinophils (%) (Auto) 0.1 % (0.0-3.0) Basophils (%) (Auto) 1.2 % (0.0-2.0) Sodium Level 132 MMOL/L (136-145) L Potassium Level 4.1 MMOL/L (3.5-5.1) Chloride Level 96 MMOL/L (98-107) L Carbon Dioxide Level 17 MMOL/L (21-32) L Anion Gap 19 mmol/L (5-15) H Blood Urea Nitrogen 12 mg/dL (7-18) Creatinine 2.1 MG/DL (0.55-1.30) H Estimate Glomerular Filtration Rate 32.8 mL/min (>60) Glucose Level 292 MG/DL (74-106) H Lactic Acid Level 5.40 mmol/L (0.4-2.0) H 4.00 mmol/L (0.66-2.22) H Calcium Level 9.7 MG/DL (8.5-10.1) Phosphorus Level 3.0 MG/DL (2.5-4.9) Magnesium Level 1.3 MG/DL (1.8-2.4) L Total Bilirubin 0.3 MG/DL (0.2-1.0) Aspartate Amino Transferase (AST) 14 U/L (15-37) L Alanine Aminotransferase (ALT) 32 U/L (12-78) Alkaline Phosphatase 66 U/L (46-116) Total Creatine Kinase 176 U/L (26-308) Creatine Kinase MB 1.7 NG/ML (0.0-3.6) Creatine Kinase MB Relative Index 0.9 Troponin I 0.017 ng/mL (0.000-0.056) Total Protein 7.9 G/DL (6.4-8.2) Albumin 3.3 G/DL (3.4-5.0) L Globulin 4.6 g/dL Albumin/Globulin Ratio 0.7 (1.0-2.7) L Urine Color Pale yellow Urine Appearance Clear Urine pH 6.5 (4.5-8.0) Urine Specific [place] 1.010 (1.005-1.035) Urine Protein 3+ (NEGATIVE) H Urine Glucose (UA) Negative (NEGATIVE) Urine Ketones Negative (NEGATIVE) Urine Blood 1+ (NEGATIVE) H Urine Nitrite Negative (NEGATIVE) Urine Bilirubin Negative (NEGATIVE) Urine Urobilinogen Normal MG/DL (0.0-1.0) Urine Leukocyte Esterase Negative (NEGATIVE) Urine RBC 2-4 /HPF (0 - 0) H Urine WBC 0-2 /HPF (0 - 0) Urine Squamous Epithelial Cells Occasional /LPF Urine Bacteria Few /HPF (NONE) EKG Diagnostic Results EKG Time: 17:20 Rate: tachycardiac Rhythm: NSR ST Segments: no acute changes Other Impression Tachycardic, normal axis, normal intervals. No ST segment changes. Rhythm Strip Diag. Results Rhythm Strip Time: 17:20 EP Interpretation: yes Rate: 130s Rhythm: NSR, no PVC's, no ectopy Chest X-Ray Diagnostic Results Chest X-Ray Diagnostic Results : Chest X-Ray Ordered: Yes Indication: Shortness of Breath EP Interpretation: Yes Interpretation: no consolidation, no effusion, no pneumothorax, other - Bilateral haziness in the lower lobes Impression: No acute disease Electronically Signed by: Electronically signed by Dr. Jimmie Almaraz Reevaluation Time: 19:20 Last Vital Signs Date Time Temp Pulse Resp B/P (MAP) Pulse Ox O2 Delivery O2 Flow Rate FiO2 12/25/18 16:46 98.2 135 28 109/57 93 Room Air 12/25/18 16:25 2.0 Reevaluation Impression Chest x-ray shows bilateral haziness but no obvious consolidation. Patient's heart rate and blood pressure have improved after receiving his sepsis level fluids. Remains slightly tachycardic though no longer hypotensive. His lactate was significantly elevated 5.4 and improved only to 4.0. He was given ceftriaxone and azithromycin. Continues to receive IV fluids. Will be admitted to telemetry for further management. Dr. Jj is the admission doctor as he is the assigned hospitalist for his facility. Disposition: ADMITTED INPATIENT Condition: Serious Jimmie Almaraz MD Dec 25, 2018 17:25
[2018-12-25] MEDS ORDERED: Azithromycin 500 MG in NS 275 ML IV ONE (17:45)
[2018-12-25] MEDS ORDERED: cefTRIAXone 1 GM in NS 55 ML IVPB ONE (17:45)
[2018-12-25 17:56] VITALS: BP 101/52
[2018-12-25 17:58] LABS: HEMATOCRIT 36.6 % (42.0-52.0); HEMOGLOBIN 12.2 G/DL (14.2-18.0); MEAN CORPUSCULAR VOLUME 87 FL (80-99); PLATELET COUNT 349 K/UL (150-450); RED BLOOD COUNT 4.18 M/UL (4.70-6.10); RED CELL DISTRIBUTION WIDTH 10.9 % (11.6-14.8); WHITE BLOOD COUNT 12.6 K/UL (4.8-10.8)
[2018-12-25 17:59] LABS: BASOPHILS % (AUTO) 1.2 % (0.0-2.0); EOSINOPHILS % (AUTO) 0.1 % (0.0-3.0); LYMPHOCYTES % (AUTO) 4.9 % (20.0-45.0); MONOCYTES % (AUTO) 5.8 % (1.0-10.0)
[2018-12-25 18:00] LABS: ANION GAP 19 mmol/L (5-15); BLOOD UREA NITROGEN 12 mg/dL (7-18); CALCIUM 9.7 MG/DL (8.5-10.1); CARBON DIOXIDE 17 MMOL/L (21-32); CHLORIDE 96 MMOL/L (98-107); CREATININE 2.1 MG/DL (0.55-1.30); POTASSIUM 4.1 MMOL/L (3.5-5.1); SODIUM 132 MMOL/L (136-145)
[2018-12-25 18:14] LABS: ALANINE AMINOTRANSFERASE 32 U/L (12-78); ALBUMIN 3.3 G/DL (3.4-5.0); ALBUMIN/GLOBULIN RATIO 0.7 (1.0-2.7); ALKALINE PHOSPHATASE 66 U/L (46-116); ASPARTATE AMINO TRANSFERASE 14 U/L (15-37); BILIRUBIN,TOTAL 0.3 MG/DL (0.2-1.0); CKMB 1.7 NG/ML (0.0-3.6); CREATINE KINASE 176 U/L (26-308)
--- NOTE | 2018-12-25 18:17 | NUR ---
ED Nurse Note: Patient asleep, in bed. On room air saturating 95% , no acute distress noted. IV fluids and IV abx ongoing. Temp 99 orally. Will continue to monitor.
[2018-12-25 18:58] VITALS: BP 122/54
--- NOTE | 2018-12-25 19:07 | NUR ---
ED Nurse Note: urine sample collected and sent down to lab
--- NOTE | 2018-12-25 19:17 | NUR ---
HAND-OFF: Report given to GAGAN Alva.
--- NOTE | 2018-12-25 19:20 | NUR ---
ED Nurse Note: Nares swab completed sent to lab, pt refused rectal swab.
--- NOTE | 2018-12-25 19:25 | NUR ---
ED Nurse Note: Recieved pt from am nurse to resume care, pt in bed esting quietly, awake, alert and oriented x 4, pt here from snf with c/o fevers, pt being treated for sepsis and preparing for admission, pt has patent IV line in right hand with fluids infusing, pt denies chest pain, no sob or labored breathing, will resume care as ordered and closely monitor.
[2018-12-25 19:43] LABS: APPEARANCE,URINE CLEAR; BILIRUBIN, URINE NEGATIVE (NEGATIVE); COLOR,URINE PALE YELLOW; GLUCOSE, URINE (UA) NEGATIVE (NEGATIVE); KETONES,URINE NEGATIVE (NEGATIVE); LEUKOCYTE ESTERASE ,URINE NEGATIVE (NEGATIVE); NITRITE,URINE NEGATIVE (NEGATIVE); PH,URINE 6.5 (4.5-8.0); PROTEIN,URINE 3+ (NEGATIVE); UROBILINOGEN,URINE NORMAL MG/DL (0.0-1.0)
--- NOTE | 2018-12-25 20:15 | NUR ---
ED Nurse Note: report given to RN Rigoberto from Tele floor.
--- NOTE | 2018-12-25 20:15 | NUR ---
ED Nurse Note: Pt has chronic right foot ulcer, photos taken, pt wears ortho shoe, area is very red with peeling skin and openings between toes.
[2018-12-25 20:30] VITALS: BP 122/71
[2018-12-25] MEDS ORDERED: HYDROcodone/Acetamin 7.5/325 tab ORAL ONE (20:45)
--- NOTE | 2018-12-25 21:15 | NUR ---
ED Nurse Note: Pt being taken to floor bed for admission, in bed awake, alert and oriented x 4, iv site intact and patent, belongings with pt and list completed, swabs collected and sent, pt taken via [place] with RN and er-tech via tony camarena, nad noted during transfer to bed.
--- NOTE | 2018-12-25 21:30 | NUR ---
NURSE NOTES: Received report from Gianluca Rogers RN/Edel Garsia RN. regarding patients transfer to TELE floor from ED. Arrived via gurney and ambulated to bed with minimal staff assist. Belongings checked and noted, head to toe assessment initiated and observed Right foot ulcer; kept clean and dry, photos taken and noted. Placed on cardiac monitoring per protocol, IV line intact and patent. Safety precaution in place; siderails X3 up, call light within reach, bed in lowest position, brakes and alarm on at all times. Needs and wants anticipated and attended. Will continue plan of care. Will notify MD regarding patient's arrival on the floor.
[2018-12-25 22:00] VITALS: BP 117/62
[2018-12-25] MEDS ORDERED: CITALOPRAM HBR10 M1 ORAL (22:54)
[2018-12-25] MEDS ORDERED: NEURONTIN300 MG ORAL (22:54)
[2018-12-25] MEDS ORDERED: JANUVIA100 MG ORAL (22:54)
[2018-12-25] MEDS ORDERED: RISPERIDONE3 MG ORAL (22:54)
[2018-12-25] MEDS ORDERED: FOLIC ACID1 M1 PO (22:54)
[2018-12-25] MEDS ORDERED: GLUCOPHAGE1000 MG ORAL (22:54)
[2018-12-25] MEDS ORDERED: FUROSEMIDE20 M1 ORAL (22:54)
[2018-12-25] MEDS ORDERED: ADALAT20 MG ORAL (22:54)
[2018-12-25] MEDS ORDERED: LISINOPRIL20 MG ORAL (22:54)
--- NOTE | 2018-12-25 23:00 | NUR ---
NURSE NOTES: New orders received and carried out per MD
[2018-12-25] MEDS ORDERED: JANUVIA25 MG ORAL (23:28)
[2018-12-26] VITALS: BP 108/64
--- NOTE | 2018-12-26 03:30 | NUR ---
NURSE NOTES: Patient in bed asleep with no S/S of distress noted. Will continue to monitor.
[2018-12-26 04:00] VITALS: BP 131/84
--- NOTE | 2018-12-26 06:00 | NUR ---
NURSE NOTES: Notified Alfonso Blanca MD. regarding patient's Mg level at 1.3 NNO at this time, awaiting call-back
[2018-12-26] MEDS ORDERED: NovoLOG Insulin Flexpen SUBQ SCH (06:30)
--- NOTE | 2018-12-26 07:20 | NUR ---
NURSE NOTES: I received the patient awake and resting in bed. Patient alert and oriented x4. Patient does not display any signs of distress or SOB. Bed in the lowest position and call light within reach. I will continue to monitor the patient.
--- NOTE | 2018-12-26 07:40 | NUR ---
HAND-OFF: Report given to Emmy Pelayo RN. Patient in bed with no S/S of distress. Endorsed plan of care.
[2018-12-26 08:00] VITALS: BP 127/81
[2018-12-26] MEDS: Docusate 100mg cap ORAL SCH ×2 (08:42→20:33)
[2018-12-26] MEDS: Lisinopril 20mg tab ORAL SCH (08:42)
[2018-12-26] MEDS: Heparin 5000 units/ml inj SUBQ SCH ×2 (08:43→20:38)
--- NOTE | 2018-12-26 08:48 | Diagnostic Imaging Report ---
Indication: Shortness of breath Technique: One view of the chest Comparison: 06/04/2017 Findings: The lungs and pleural spaces are clear. The heart size is normal. Impression: Negative
[2018-12-26 10:18] LABS: BASOPHILS % (AUTO) 0.8 % (0.0-2.0); EOSINOPHILS % (AUTO) 0.4 % (0.0-3.0); HEMATOCRIT 31.4 % (42.0-52.0); HEMOGLOBIN 10.8 G/DL (14.2-18.0); LYMPHOCYTES % (AUTO) 15.8 % (20.0-45.0); MEAN CORPUSCULAR VOLUME 87 FL (80-99); MONOCYTES % (AUTO) 12.5 % (1.0-10.0); NEUTROPHILS % (AUTO) 70.5 % (45.0-75.0); PLATELET COUNT 327 K/UL (150-450); RED CELL DISTRIBUTION WIDTH 12.2 % (11.6-14.8); WHITE BLOOD COUNT 6.7 K/UL (4.8-10.8)
[2018-12-26 10:24] LABS: ALANINE AMINOTRANSFERASE 29 U/L (12-78); ALBUMIN 2.7 G/DL (3.4-5.0); ALBUMIN/GLOBULIN RATIO 0.6 (1.0-2.7); ALKALINE PHOSPHATASE 60 U/L (46-116); ANION GAP 12 mmol/L (5-15); ASPARTATE AMINO TRANSFERASE 16 U/L (15-37); BILIRUBIN,TOTAL 0.3 MG/DL (0.2-1.0); BLOOD UREA NITROGEN 8 mg/dL (7-18); CALCIUM 8.8 MG/DL (8.5-10.1); CARBON DIOXIDE 22 MMOL/L (21-32); CHLORIDE 103 MMOL/L (98-107); PHOSPHORUS 2.7 MG/DL (2.5-4.9); POTASSIUM 3.8 MMOL/L (3.5-5.1); SODIUM 137 MMOL/L (136-145)
--- NOTE | 2018-12-26 11:27 | Consultation ---
History of Present Illness General Date patient seen: Dec 26, 2018 Chief Complaint: Fever Present Illness HPI 58-year-old male with a history of diabetes, chronic foot ulcer presenting from [facility] for evaluation of tachycardia and fever. He is c/o short of breath and had a nonproductive cough since yesterday. Because of his tachycardia, he is admitted to telemetry. His Systolic BP was at 80's in ER. Allergies: Coded Allergies: NO KNOWN ALLERGIES (Unverified Allergy, Unknown, 02/08/15) Medication History Scheduled Acetaminophen* (Tylenol Extra Strength*), 650 MG ORAL Q8H, (Reported) Atorvastatin Calcium* (Atorvastatin Calcium*), DAILY, (Reported) Ceftriaxone Na/Dextrose,Iso (Ceftriaxone 1 Gm Piggyback), 1 GM IV DAILY, ( Reported) Ceftriaxone Na/Dextrose,Iso (Ceftriaxone 1 Gm Piggyback), 1 GM IV DAILY, ( Reported) Citalopram Hydrobromide* (Citalopram Hbr*), 10 MG ORAL DAILY, (Reported) Citalopram Hydrobromide* (Citalopram Hbr*), 10 MG ORAL DAILY, (Reported) Divalproex Sodium (Divalproex Sodium), 250 MG ORAL BID, (Reported) Docusate Sodium* (Docusate Sodium*), 100 MG ORAL Q12HR, (Reported) Dulaglutide (Trulicity), 1.5 MG SQ ONCE A WEEK, (Reported) Famotidine (Famotidine), 40 MG ORAL DAILY, (Reported) Folic Acid (Folic Acid), 1 MG PO DAILY, (Reported) Folic Acid* (Folic Acid*), 1 MG ORAL DAILY, (Reported) Furosemide* (Lasix*), 20 MG ORAL DAILY, (Reported) Furosemide* (Lasix*), 40 MG ORAL DAILY, (Reported) Furosemide* (Lasix*), 20 MG ORAL DAILY, (Reported) Gabapentin (Neurontin), 300 MG ORAL EVERY 8 HOURS, (Reported) Gabapentin* (Gabapentin*), TID, (Reported) Heparin Sod (Porcine) (Heparin Sodium*), 5,000 UNITS SUBQ EVERY 12 HOURS, ( Reported) Insulin Aspart* (Novolog*), 0 SUBQ AC+HS, (Reported) Lisinopril (Lisinopril*), 40 MG ORAL DAILY, (Reported) Lisinopril* (Lisinopril*), 40 MG ORAL DAILY, (Reported) Metformin Hcl (Glucophage), 1,000 MG ORAL BID, (Reported) Metformin Hcl* (Metformin Hcl*), BID, (Reported) Metronidazole* (Flagyl*), 500 MG ORAL EVERY 8 HOURS, (Reported) Nifedipine (Nifedipine*), 60 MG ORAL DAILY, (Reported) Nifedipine Er* (Nifedipine Er*), DAILY, (Reported) Nifedipine Xl* (Procardia Xl*), 90 MG ORAL DAILY, (Reported) Risperidone (Risperidone), 3 MG ORAL BID, (Reported) Risperidone (Risperidone), 3 MG ORAL BID, (Reported) Sitagliptin (Januvia), DAILY, (Reported) Sitagliptin (Januvia), 100 MG ORAL DAILY, (Reported) Sitagliptin* (Januvia*), 100 MG ORAL DAILY, (Reported) Sodium Hypochlorite (Dakin's), 1 APPLIC TOPIC DAILY, (Reported) Vancomycin Hcl/D5w (Vancomycin-D5w 1 G/250 Ml), 1.5 GM IVPB Q12HR, (Reported) Vancomycin Hcl/D5w (Vancomycin-D5w 1 G/250 Ml), 1.5 GM IVPB Q12HR, (Reported) Vancomycin Hcl/D5w (Vancomycin-D5w 500 Mg/100 Ml), 1,000 MG IV Q8HR, (Reported) Vancomycin Hcl/D5w (Vancomycin-D5w 500 Mg/100 Ml), 1,000 MG IV Q8HR, (Reported) Scheduled PRN Acetaminophen* (Acetaminophen 325MG Tablet*), 650 MG ORAL Q8HR PRN for Prn Headache/Temp > 101, (Reported) Clonidine Hcl* (Catapres*), 0.1 MG ORAL EVERY 6 HOURS PRN for prn, (Reported) Morphine Sulfate* (Morphine Sulfate*), 2 MG IV Q4HR PRN for Moderate Pain (Pain Scale 4-6), (Reported) Miscellaneous Medications Vancomycin Hcl/D5w (Vancomycin-D5w 500 Mg/100 Ml), 500 MG IV, (Reported) Patient History Healthcare decision maker N Resuscitation status Full Code Advanced Directive on File No Past Medical/Surgical History Past Medical/Surgical History: (1) HTN (hypertension) (2) Diabetes (3) Anemia Review of Systems Constitutional: Reports: fever, malaise, weakness All Other Systems: negative except mentioned in HPI Physical Exam General Appearance: WD/WN, no apparent distress Lines, tubes and drains: peripheral HEENT: normocephalic, atraumatic Neck: non-tender, normal alignment Respiratory/Chest: chest wall non-tender, lungs clear Breasts: no masses Cardiovascular/Chest: normal peripheral pulses Abdomen: normal bowel sounds, non tender Genitourinary/Rectal: normal genital exam Extremities: normal range of motion Skin Exam: normal pigmentation Neurologic: home care aide II-XII grossly normal Last 24 Hour Vital Signs Date Time Temp Pulse Resp B/P (MAP) Pulse Ox O2 Delivery O2 Flow Rate FiO2 12/26/18 09:15 96.8 12/26/18 08:42 127/81 12/26/18 08:00 96.8 88 18 127/81 (96) 93 12/26/18 04:00 124 12/26/18 04:00 98.1 109 18 131/84 (100) 93 12/26/18 00:00 98.2 112 20 108/64 (79) 94 12/26/18 00:00 103 12/25/18 22:30 111 12/25/18 22:07 Room Air 12/25/18 22:00 97.3 120 18 117/62 (80) 96 12/25/18 21:20 99.0 125 20 122/71 98 Room Air 2.0 116 12/25/18 20:30 99.0 116 20 122/71 98 Room Air 2.0 12/25/18 18:58 99.0 125 20 122/54 95 Room Air 12/25/18 17:56 99.0 122 20 101/52 96 Room Air 12/25/18 16:46 98.2 135 28 109/57 93 Room Air 12/25/18 16:46 135 28 Room Air 12/25/18 16:25 98.2 108 28 84/50 (61) 99 Nasal Cannula 2.0 Intake and Output 12/25/18 12/26/18 19:00 07:00 Intake Total 7230 ml 240 ml Balance 7230 ml 240 ml Intake Oral 240 ml IV Total 7230 ml # Voids 1 Laboratory Tests Test 12/25/18 17:15 12/25/18 18:32 12/25/18 19:00 12/26/18 09:50 White Blood Count 12.6 K/UL (4.8-10.8) H 6.7 K/UL (4.8-10.8) Red Blood Count 4.18 M/UL (4.70-6.10) L 3.60 M/UL (4.70-6.10) L Hemoglobin 12.2 G/DL (14.2-18.0) L 10.8 G/DL (14.2-18.0) L Hematocrit 36.6 % (42.0-52.0) L 31.4 % (42.0-52.0) L Mean Corpuscular Volume 87 FL (80-99) 87 FL (80-99) Mean Corpuscular Hemoglobin 29.2 PG (27.0-31.0) 30.0 PG (27.0-31.0) Mean Corpuscular Hemoglobin Concent 33.3 G/DL (32.0-36.0) 34.4 G/DL (32.0-36.0) Red Cell Distribution Width 10.9 % (11.6-14.8) L 12.2 % (11.6-14.8) Platelet Count 349 K/UL (150-450) 327 K/UL (150-450) Mean Platelet Volume 5.6 FL (6.5-10.1) L 5.3 FL (6.5-10.1) L Neutrophils (%) (Auto) 88.0 % (45.0-75.0) H 70.5 % (45.0-75.0) Lymphocytes (%) (Auto) 4.9 % (20.0-45.0) L 15.8 % (20.0-45.0) L Monocytes (%) (Auto) 5.8 % (1.0-10.0) 12.5 % (1.0-10.0) H Eosinophils (%) (Auto) 0.1 % (0.0-3.0) 0.4 % (0.0-3.0) Basophils (%) (Auto) 1.2 % (0.0-2.0) 0.8 % (0.0-2.0) Sodium Level 132 MMOL/L (136-145) L 137 MMOL/L (136-145) Potassium Level 4.1 MMOL/L (3.5-5.1) 3.8 MMOL/L (3.5-5.1) Chloride Level 96 MMOL/L (98-107) L 103 MMOL/L (98-107) Carbon Dioxide Level 17 MMOL/L (21-32) L 22 MMOL/L (21-32) Anion Gap 19 mmol/L (5-15) H 12 mmol/L (5-15) Blood Urea Nitrogen 12 mg/dL (7-18) 8 mg/dL (7-18) Creatinine 2.1 MG/DL (0.55-1.30) H 1.0 MG/DL (0.55-1.30) # Estimat Glomerular Filtration Rate 32.8 mL/min (>60) > 60 mL/min (>60) Glucose Level 292 MG/DL (74-106) H 247 MG/DL (74-106) H Lactic Acid Level 5.40 mmol/L (0.4-2.0) H 4.00 mmol/L (0.66-2.22) H Calcium Level 9.7 MG/DL (8.5-10.1) 8.8 MG/DL (8.5-10.1) Phosphorus Level 3.0 MG/DL (2.5-4.9) 2.7 MG/DL (2.5-4.9) Magnesium Level 1.3 MG/DL (1.8-2.4) L 1.7 MG/DL (1.8-2.4) L Total Bilirubin 0.3 MG/DL (0.2-1.0) 0.3 MG/DL (0.2-1.0) Aspartate Amino Transf (AST/SGOT) 14 U/L (15-37) L 16 U/L (15-37) Alanine Aminotransferase (ALT/SGPT) 32 U/L (12-78) 29 U/L (12-78) Alkaline Phosphatase 66 U/L (46-116) 60 U/L (46-116) Total Creatine Kinase 176 U/L (26-308) Creatine Kinase MB 1.7 NG/ML (0.0-3.6) Creatine Kinase MB Relative Index 0.9 Troponin I 0.017 ng/mL (0.000-0.056) 0.000 ng/mL (0.000-0.056) Total Protein 7.9 G/DL (6.4-8.2) 6.9 G/DL (6.4-8.2) Albumin 3.3 G/DL (3.4-5.0) L 2.7 G/DL (3.4-5.0) L Globulin 4.6 g/dL 4.2 g/dL Albumin/Globulin Ratio 0.7 (1.0-2.7) L 0.6 (1.0-2.7) L Urine Color Pale yellow Urine Appearance Clear Urine pH 6.5 (4.5-8.0) Urine Specific [place] 1.010 (1.005-1.035) Urine Protein 3+ (NEGATIVE) H Urine Glucose (UA) Negative (NEGATIVE) Urine Ketones Negative (NEGATIVE) Urine Blood 1+ (NEGATIVE) H Urine Nitrite Negative (NEGATIVE) Urine Bilirubin Negative (NEGATIVE) Urine Urobilinogen Normal MG/DL (0.0-1.0) Urine Leukocyte Esterase Negative (NEGATIVE) Urine RBC 2-4 /HPF (0 - 0) H Urine WBC 0-2 /HPF (0 - 0) Urine Squamous Epithelial Cells Occasional /LPF Urine Bacteria Few /HPF (NONE) Microbiology Date/Time Source Procedure Growth Status 12/26/18 06:50 Rectal Mucosa Received Height (Feet): 5 Height (Inches): 11.00 Weight (Pounds): 275 Medications Current Medications Medications (Trade) Dose Ordered Sig/Azar Route PRN Reason Start Time Stop Time Status Last Admin Dose Admin Acetaminophen (Tylenol) 650 mg Q6HR PRN ORAL Mild Pain/Temp > 100.5 12/26/18 00:30 01/25/19 00:29 12/26/18 08:45 Atorvastatin Calcium (Lipitor) 20 mg BEDTIME ORAL 12/26/18 21:00 01/25/19 20:59 Ceftriaxone Sodium 1 gm/ Dextrose 55 ml @ 110 mls/hr Q24H IVPB 12/26/18 18:00 01/02/19 17:59 Clonidine HCl (Catapres Tab) 0.1 mg EVERY 6 HOURS PRN ORAL For High Blood Pressure 12/26/18 00:45 01/25/19 00:29 Dextrose (Dextrose 50%) 25 ml Q30M PRN IV Hypoglycemia 12/26/18 00:45 01/25/19 00:44 Dextrose (Dextrose 50%) 50 ml Q30M PRN IV Hypoglycemia 12/26/18 00:45 01/25/19 00:44 Divalproex Sodium (Depakote) 250 mg BID ORAL 12/26/18 09:00 01/25/19 08:59 12/26/18 09:00 Docusate Sodium (Colace) 100 mg Q12HR ORAL 12/26/18 09:00 01/25/19 08:59 12/26/18 08:42 Folic Acid (Folate) 1 mg DAILY ORAL 12/26/18 09:00 01/25/19 08:59 12/26/18 08:41 Gabapentin (Neurontin) 300 mg EVERY 8 HOURS ORAL 12/26/18 06:00 01/25/19 05:59 12/26/18 06:07 Heparin Sodium (Porcine) (Heparin 5000 units/ml) 5,000 units EVERY 12 HOURS SUBQ 12/26/18 09:00 01/25/19 08:59 12/26/18 08:43 Insulin Aspart (NovoLOG) BEFORE MEALS AND HS SUBQ 12/26/18 06:30 01/25/19 06:29 12/26/18 06:08 Lisinopril (Prinivil) 40 mg DAILY ORAL 12/26/18 09:00 01/25/19 08:59 12/26/18 08:42 Sodium Chloride 1,000 ml @ 100 mls/hr Q10H IV 12/26/18 01:00 01/25/19 00:59 12/26/18 01:52 Assessment/Plan Problem List: (1) URI (upper respiratory infection) ICD Codes: J06.9 - Acute upper respiratory infection, unspecified SNOMED: 83024198 (2) Tachycardia ICD Codes: R00.0 - Tachycardia, unspecified SNOMED: 5639583 (3) HTN (hypertension) ICD Codes: I10 - Essential (primary) hypertension SNOMED: 15272879 (4) Diabetes ICD Codes: E11.9 - Type 2 diabetes mellitus without complications SNOMED: 94494404 Assessment/Plan: magana culture symptomatic treatment iv fluids echocardiogram Hank Abreu MD Dec 26, 2018 11:26
[2018-12-26 12:00] VITALS: BP 124/62
[2018-12-26] MEDS: NovoLOG Insulin Flexpen SUBQ SCH ×3 (12:49→20:41)
--- NOTE | 2018-12-26 12:50 | NUR ---
NURSE NOTES: Patient's 1130 dose of insulin administered late due to the insulin not being on the floor. The insulin was brought to the floor, but needed to be relabled. I took the insulin to the pharmacy to relable the insulin pen. The insulin was administered as soon as the insulin pen was brought to the floor.
--- NOTE | 2018-12-26 15:36 | History & Physical ---
History and Physical History & Physicial Jaime Blanca MD Dec 26, 2018 15:36
[2018-12-26 16:00] VITALS: BP 143/68
[2018-12-26] MEDS: cefTRIAXone 1 GM in D5W 55 ML IVPB SCH (17:40)
--- NOTE | 2018-12-26 19:26 | NUR ---
HAND-OFF: Report given to Wendi Clements RN.
--- NOTE | 2018-12-26 19:26 | NUR ---
NURSE NOTES: Report received from Mary FARAH. Patient in bed awake, talking. In no distress noted. Breathing even and unlabored. Bed in lowest position. Call lights within reach. Will continue plan of care.
[2018-12-26 20:00] VITALS: BP 130/72
[2018-12-26] MEDS: Atorvastatin 20mg tab ORAL SCH (20:33)
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
[2018-12-27] VITALS (7 sets, daily range): BP systolic 123–165; BP diastolic 66–92
[2018-12-27] MEDS: NovoLOG Insulin Flexpen SUBQ SCH ×4 (06:35→22:21)
--- NOTE | 2018-12-27 07:20 | NUR ---
NURSE NOTES: Received report from GAGAN Clemenst. Patient is resting in bed, in stable condition. No s/sx of SOB, breathing is even and unlabored. Denies any presence of pain or discomfort at this time. Bed is in lowest position, brakes engaged. Call light is kept within easy reach. Will continue to monitor patient.
[2018-12-27 07:38] LABS: EOSINOPHILS % (AUTO) 2.3 % (0.0-3.0); HEMATOCRIT 33.3 % (42.0-52.0); HEMOGLOBIN 11.5 G/DL (14.2-18.0); LYMPHOCYTES % (AUTO) 26.2 % (20.0-45.0); MEAN CORPUSCULAR VOLUME 87 FL (80-99); MONOCYTES % (AUTO) 9.8 % (1.0-10.0); NEUTROPHILS % (AUTO) 60.8 % (45.0-75.0); PLATELET COUNT 322 K/UL (150-450); RED BLOOD COUNT 3.83 M/UL (4.70-6.10); RED CELL DISTRIBUTION WIDTH 12.5 % (11.6-14.8); WHITE BLOOD COUNT 5.8 K/UL (4.8-10.8)
[2018-12-27 07:57] LABS: ALANINE AMINOTRANSFERASE 38 U/L (12-78); ALBUMIN 2.7 G/DL (3.4-5.0); ALBUMIN/GLOBULIN RATIO 0.6 (1.0-2.7); ALKALINE PHOSPHATASE 57 U/L (46-116); ANION GAP 12 mmol/L (5-15); ASPARTATE AMINO TRANSFERASE 22 U/L (15-37); BILIRUBIN,TOTAL 0.2 MG/DL (0.2-1.0); BLOOD UREA NITROGEN 6 mg/dL (7-18); CALCIUM 8.8 MG/DL (8.5-10.1); CARBON DIOXIDE 24 MMOL/L (21-32); CHLORIDE 102 MMOL/L (98-107); CREATININE 0.8 MG/DL (0.55-1.30); POTASSIUM 3.8 MMOL/L (3.5-5.1); SODIUM 138 MMOL/L (136-145)
[2018-12-27] MEDS: Lisinopril 20mg tab ORAL SCH (08:49)
[2018-12-27] MEDS: Docusate 100mg cap ORAL SCH ×2 (08:49→22:22)
[2018-12-27] MEDS: Heparin 5000 units/ml inj SUBQ SCH ×2 (08:50→21:00)
--- NOTE | 2018-12-27 09:43 | Pulmonology Progress Note ---
Assessment/Plan Assessment/Plan ASSESSMENT Lactic acidosis, hypotension, tachycardia,- possible sepsis Tachycardia-resolved Upper respiratory infection Acute kidney injury -resolved Diabetes mellitus Hypertension Hypomagnesemia Chronic R foot ulcer PLAN OF CARE on tele monitor HR, tachy resolved ECHO with pEF 55% IVF, decrease rate monitor renal parameters,lytes replace magnesium correct electrolytes further as needed , avoid nephrotoxic empiric abx per ID fup with cx BCX NGTD repeat lactic acid BS management with SSI monitor BP and lytes, consider to dc Lisinopril due to initial RASHMI, at this time creat stable, pt was on Lisinopril for 2 yrs DVT prophylaxis add Nicotine patch wound care transfer to [facility] floor case discussed and evaluated by supervising physician Subjective Allergies: Coded Allergies: NO KNOWN ALLERGIES (Unverified Allergy, Unknown, 02/08/15) Subjective pulse ox stable on RA no chest pain occas SOB , craving cigarettes Mg low-1.4 tachy resolved Objective Last 24 Hour Vital Signs Date Time Temp Pulse Resp B/P (MAP) Pulse Ox O2 Delivery O2 Flow Rate FiO2 12/27/18 09:00 Room Air 12/27/18 08:49 144/83 12/27/18 08:00 98.6 93 18 144/83 (103) 95 12/27/18 04:00 97.9 90 18 132/77 (95) 97 12/27/18 04:00 82 12/27/18 00:00 97.8 85 17 128/74 (92) 98 12/27/18 00:00 83 12/26/18 21:00 Room Air 12/26/18 20:00 92 12/26/18 20:00 98.0 82 17 130/72 (91) 97 12/26/18 16:00 96.6 69 20 143/68 (93) 96 12/26/18 15:28 85 12/26/18 12:00 99.0 82 20 124/62 (82) 96 12/26/18 11:36 85 Intake and Output 12/26/18 12/27/18 19:00 07:00 Intake Total 300 ml Output Total 2100 ml Balance -1800 ml Intake Oral 300 ml Output Urine Total 2100 ml # Voids 7 General Appearance: no acute distress, other - A/A/O obese male HEENT: normocephalic, atraumatic, anicteric, mucous membranes moist Respiratory/Chest: lungs clear - with mdoerate air exchange , no respiratory distress, no accessory muscle use Cardiovascular: normal rate Abdomen: normal bowel sounds, soft, non tender - obese Extremities: other - +1 edema BLE Skin: other Neurologic/Psychiatric: alert, oriented x 3, responsive Musculoskeletal: normal muscle bulk Microbiology Date/Time Source Procedure Growth Status 12/25/18 17:15 Blood Blood Culture - Preliminary NO GROWTH AFTER 24 HOURS Resulted 12/25/18 17:15 Blood Blood Culture - Preliminary NO GROWTH AFTER 24 HOURS Resulted 12/26/18 06:50 Rectal Mucosa Received Laboratory Tests 12/26/18 09:50: White Blood Count 6.7, Red Blood Count 3.60L, Hemoglobin 10.8L, Hematocrit 31.4L , Mean Corpuscular Volume 87, Mean Corpuscular Hemoglobin 30.0, Mean Corpuscular Hemoglobin Concent 34.4, Red Cell Distribution Width 12.2, Platelet Count 327, Mean Platelet Volume 5.3L, Neutrophils (%) (Auto) 70.5, Lymphocytes ( %) (Auto) 15.8L, Monocytes (%) (Auto) 12.5H, Eosinophils (%) (Auto) 0.4, Basophils (%) (Auto) 0.8, Sodium Level 137, Potassium Level 3.8, Chloride Level 103, Carbon Dioxide Level 22, Anion Gap 12, Blood Urea Nitrogen 8, Creatinine 1.0#, Estimat Glomerular Filtration Rate > 60, Glucose Level 247H, Calcium Level 8.8, Phosphorus Level 2.7, Magnesium Level 1.7L, Total Bilirubin 0.3, Aspartate Amino Transf (AST/SGOT) 16, Alanine Aminotransferase (ALT/SGPT) 29, Alkaline Phosphatase 60, Troponin I 0.000, Total Protein 6.9, Albumin 2.7L, Globulin 4.2, Albumin/Globulin Ratio 0.6L 12/27/18 06:53: White Blood Count 5.8, Red Blood Count 3.83L, Hemoglobin 11.5L, Hematocrit 33.3L , Mean Corpuscular Volume 87, Mean Corpuscular Hemoglobin 30.0, Mean Corpuscular Hemoglobin Concent 34.6, Red Cell Distribution Width 12.5, Platelet Count 322, Mean Platelet Volume 4.8L, Neutrophils (%) (Auto) 60.8, Lymphocytes ( %) (Auto) 26.2, Monocytes (%) (Auto) 9.8, Eosinophils (%) (Auto) 2.3, Basophils (%) (Auto) 1.0, Sodium Level 138, Potassium Level 3.8, Chloride Level 102, Carbon Dioxide Level 24, Anion Gap 12, Blood Urea Nitrogen 6L, Creatinine 0.8, Estimat Glomerular Filtration Rate > 60, Glucose Level 166H, Calcium Level 8.8, Phosphorus Level 3.0, Magnesium Level 1.4L, Total Bilirubin 0.2, Aspartate Amino Transf (AST/SGOT) 22, Alanine Aminotransferase (ALT/SGPT) 38, Alkaline Phosphatase 57, Total Protein 7.1, Albumin 2.7L, Globulin 4.4, Albumin/Globulin Ratio 0.6L, Erythrocyte Sedimentation Rate 81H, C-Reactive Protein, Quantitative 2.5H Current Medications Medications (Trade) Dose Ordered Sig/Azar Route PRN Reason Start Time Stop Time Status Last Admin Dose Admin Acetaminophen (Tylenol) 650 mg Q6HR PRN ORAL Mild Pain/Temp > 100.5 12/26/18 00:30 01/25/19 00:29 12/27/18 05:30 Atorvastatin Calcium (Lipitor) 20 mg BEDTIME ORAL 12/26/18 21:00 01/25/19 20:59 12/26/18 20:33 Ceftriaxone Sodium 1 gm/ Dextrose 55 ml @ 110 mls/hr Q24H IVPB 12/26/18 18:00 01/02/19 17:59 12/26/18 17:40 Clonidine HCl (Catapres Tab) 0.1 mg EVERY 6 HOURS PRN ORAL For High Blood Pressure 12/26/18 00:45 01/25/19 00:29 Dextrose (Dextrose 50%) 25 ml Q30M PRN IV Hypoglycemia 12/26/18 11:30 01/25/19 11:29 Dextrose (Dextrose 50%) 50 ml Q30M PRN IV Hypoglycemia 12/26/18 11:30 01/25/19 11:29 Divalproex Sodium (Depakote) 250 mg BID ORAL 12/26/18 09:00 01/25/19 08:59 12/27/18 08:49 Docusate Sodium (Colace) 100 mg Q12HR ORAL 12/26/18 09:00 01/25/19 08:59 12/27/18 08:49 Folic Acid (Folate) 1 mg DAILY ORAL 12/26/18 09:00 01/25/19 08:59 12/27/18 08:49 Gabapentin (Neurontin) 300 mg EVERY 8 HOURS ORAL 12/26/18 06:00 01/25/19 05:59 12/27/18 05:29 Heparin Sodium (Porcine) (Heparin 5000 units/ml) 5,000 units EVERY 12 HOURS SUBQ 12/26/18 09:00 01/25/19 08:59 12/27/18 08:50 Insulin Aspart (NovoLOG) BEFORE MEALS AND HS SUBQ 12/26/18 11:30 01/25/19 11:29 12/27/18 06:35 Lisinopril (Prinivil) 40 mg DAILY ORAL 12/26/18 09:00 01/25/19 08:59 12/27/18 08:49 Sodium Chloride 1,000 ml @ 100 mls/hr Q10H IV 12/26/18 01:00 01/25/19 00:59 12/27/18 08:08 Maria A Jimenez COLLECTOR Dec 27, 2018 09:43
--- NOTE | 2018-12-27 10:47 | NUR ---
NURSE NOTES: Ms. Jimenez seen and examined patient at bedside. Pt magnesium level noted at 1.4 today. Ms. Jimenez ordered magnesium sulfate 1 gm IV x 2 and nicotine patch 21mg. Also made Ms. Jimenez aware of lactice acid level of 4.0 from 12/25, Ms. Jimenez acknowledged, no new orders given at this time. Will continue to monitor patient.
[2018-12-27] MEDS: cefTRIAXone 1 GM in D5W 55 ML IVPB SCH (17:27)
--- NOTE | 2018-12-27 17:44 | Internal Med Progress Note ---
Subjective Date of Service: Dec 27, 2018 Physician Name Misha Luna Attending Physician Jaime Blanca MD Current Medications Medications (Trade) Dose Ordered Sig/Azar Route PRN Reason Start Time Stop Time Status Last Admin Dose Admin Acetaminophen (Tylenol) 650 mg Q6HR PRN ORAL Mild Pain/Temp > 100.5 12/26/18 00:30 01/25/19 00:29 12/27/18 14:44 Atorvastatin Calcium (Lipitor) 20 mg BEDTIME ORAL 12/26/18 21:00 01/25/19 20:59 12/26/18 20:33 Ceftriaxone Sodium 1 gm/ Dextrose 55 ml @ 110 mls/hr Q24H IVPB 12/26/18 18:00 01/02/19 17:59 12/27/18 17:27 Clonidine HCl (Catapres Tab) 0.1 mg EVERY 6 HOURS PRN ORAL For High Blood Pressure 12/26/18 00:45 01/25/19 00:29 Dextrose (Dextrose 50%) 25 ml Q30M PRN IV Hypoglycemia 12/26/18 11:30 01/25/19 11:29 Dextrose (Dextrose 50%) 50 ml Q30M PRN IV Hypoglycemia 12/26/18 11:30 01/25/19 11:29 Divalproex Sodium (Depakote) 250 mg BID ORAL 12/26/18 09:00 01/25/19 08:59 12/27/18 17:27 Docusate Sodium (Colace) 100 mg Q12HR ORAL 12/26/18 09:00 01/25/19 08:59 12/27/18 08:49 Folic Acid (Folate) 1 mg DAILY ORAL 12/26/18 09:00 01/25/19 08:59 12/27/18 08:49 Gabapentin (Neurontin) 300 mg EVERY 8 HOURS ORAL 12/26/18 06:00 01/25/19 05:59 12/27/18 13:10 Heparin Sodium (Porcine) (Heparin 5000 units/ml) 5,000 units EVERY 12 HOURS SUBQ 12/26/18 09:00 01/25/19 08:59 12/27/18 08:50 Insulin Aspart (NovoLOG) BEFORE MEALS AND HS SUBQ 12/26/18 11:30 01/25/19 11:29 12/27/18 17:04 Lisinopril (Prinivil) 40 mg DAILY ORAL 12/26/18 09:00 01/25/19 08:59 12/27/18 08:49 Nicotine (Nicoderm) 1 patch Q24H TDERMAL 12/27/18 12:00 01/26/19 11:59 12/27/18 12:19 Sodium Chloride 1,000 ml @ 75 mls/hr [id number] IV 12/27/18 13:00 01/26/19 12:59 12/27/18 12:34 Allergies: Coded Allergies: NO KNOWN ALLERGIES (Unverified Allergy, Unknown, 02/08/15) ROS Limited/Unobtainable: No Constitutional: Reports: fever HEENT: Reports: no symptoms Cardiovascular: Reports: no symptoms Respiratory: Reports: shortness of breath Gastrointestinal/Abdominal: Reports: no symptoms Genitourinary: Reports: no symptoms Neurologic/Psychiatric: Reports: no symptoms Subjective 58 YO M admitted with shortness of breath and fever. Now hypotension and presumed sepsis. Cover for Int Med-Dr Blanca Objective Last Vital Signs Date Time Temp Pulse Resp B/P (MAP) Pulse Ox O2 Delivery O2 Flow Rate FiO2 12/27/18 16:00 98.2 83 18 145/91 (109) 96 12/27/18 09:00 Room Air 12/25/18 21:20 2.0 Laboratory Tests Test 12/27/18 06:53 White Blood Count 5.8 K/UL (4.8-10.8) Red Blood Count 3.83 M/UL (4.70-6.10) L Hemoglobin 11.5 G/DL (14.2-18.0) L Hematocrit 33.3 % (42.0-52.0) L Mean Corpuscular Volume 87 FL (80-99) Mean Corpuscular Hemoglobin 30.0 PG (27.0-31.0) Mean Corpuscular Hemoglobin Concent 34.6 G/DL (32.0-36.0) Red Cell Distribution Width 12.5 % (11.6-14.8) Platelet Count 322 K/UL (150-450) Mean Platelet Volume 4.8 FL (6.5-10.1) L Neutrophils (%) (Auto) 60.8 % (45.0-75.0) Lymphocytes (%) (Auto) 26.2 % (20.0-45.0) Monocytes (%) (Auto) 9.8 % (1.0-10.0) Eosinophils (%) (Auto) 2.3 % (0.0-3.0) Basophils (%) (Auto) 1.0 % (0.0-2.0) Erythrocyte Sedimentation Rate 81 MM/HR (0-20) H Sodium Level 138 MMOL/L (136-145) Potassium Level 3.8 MMOL/L (3.5-5.1) Chloride Level 102 MMOL/L (98-107) Carbon Dioxide Level 24 MMOL/L (21-32) Anion Gap 12 mmol/L (5-15) Blood Urea Nitrogen 6 mg/dL (7-18) L Creatinine 0.8 MG/DL (0.55-1.30) Estimat Glomerular Filtration Rate > 60 mL/min (>60) Glucose Level 166 MG/DL (74-106) H Calcium Level 8.8 MG/DL (8.5-10.1) Phosphorus Level 3.0 MG/DL (2.5-4.9) Magnesium Level 1.4 MG/DL (1.8-2.4) L Total Bilirubin 0.2 MG/DL (0.2-1.0) Aspartate Amino Transf (AST/SGOT) 22 U/L (15-37) Alanine Aminotransferase (ALT/SGPT) 38 U/L (12-78) Alkaline Phosphatase 57 U/L (46-116) C-Reactive Protein, Quantitative 2.5 mg/dL (0.00-0.90) H Total Protein 7.1 G/DL (6.4-8.2) Albumin 2.7 G/DL (3.4-5.0) L Globulin 4.4 g/dL Albumin/Globulin Ratio 0.6 (1.0-2.7) L Valproic Acid (Depakene) Level 18 MCG/ML (50-100) L Microbiology Date/Time Source Procedure Growth Status 12/25/18 17:15 Blood Blood Culture - Preliminary NO GROWTH AFTER 24 HOURS Resulted 12/25/18 17:15 Blood Blood Culture - Preliminary NO GROWTH AFTER 24 HOURS Resulted 12/26/18 06:50 Rectal Mucosa Received Intake and Output 12/26/18 12/27/18 19:00 07:00 Intake Total 300 ml Output Total 2100 ml Balance -1800 ml Intake Oral 300 ml Output Urine Total 2100 ml # Voids 7 Objective PHYSICAL EXAMINATION: GENERAL: The patient is awake, responsive, and in no acute distress. HEAD AND NECK: Pupils are reactive to light. Extraocular movements intact. NECK: Supple. No JVD. LUNGS: Good air entry. No wheezing or rales. Decreased air in the bases. HEART: Reveals S1, S2. Tachycardic. No murmur or gallop. ABDOMEN: Soft, nondistended, and nontender. Morbidly obese. Positive bowel sounds. EXTREMITIES: No cyanosis, clubbing, or edema. Right lower extremity has trace edema with old scaly rashes due to the prior cellulitis. NEUROLOGIC: Cranial nerves II through XII grossly intact. Motor is 5/5 in all extremities. Gait is a not assessed due to the patient's status. RECTAL/GENITOURINARY: Refused and deferred. PSYCHIATRIC: Mood and affect is intact. Assessment/Plan Assessment/Plan ASSESSMENT: 1. Severe dehydration with acute kidney injury with acute tubular necrosis. 2. Diabetes type 2. 3. Hypertension, presently hypotensive. 4. Morbid obesity. 5. Dyslipidemia. 6. Tachycardia. 7. Anemia. 8. Upper respiratory infection. PLAN: 1. Admit the patient to monitored unit. 2. We will follow up laboratory and cultures. 3. antibiotic = Rocephin. 4. Aggressive IV hydration. 5. DVT prophylaxis with heparin subcutaneous. 6. Code status, Full Code. 7. We will follow up with the ID consultation as well as Pulmonary consultation with Dr. Abreu. We will monitor blood glucose level closely. 8. If the patient's status improves, consider transfer to medical floor. Misha Luna MD Dec 27, 2018 17:44
--- NOTE | 2018-12-27 19:21 | NUR ---
NURSE NOTES: Report received from GAGAN Jones. Endorsed that patient will be transferred to [facility] floor. Patient in bed, awake and talkative. In no distress noted. Will continue plan of care.
--- NOTE | 2018-12-27 19:21 | NUR ---
HAND-OFF: Report given to GAGAN Clements.
[2018-12-27] MEDS: Atorvastatin 20mg tab ORAL SCH (22:22)
--- NOTE | 2018-12-27 23:35 | NUR ---
NURSE NOTES: Received report from GAGAN Clements from Telemetry. Patient arrived in a bed. Breathing unlabored without distress, discomfort, or sob on room air. VS:147/92 HR78 Temp 98.1 O2Sat 95% on room air. IV note on right hand intact and patent. Right foot healing ulcer noted. Otherwise, skin intact. Bed placed at the lowest with alarm, brake, siderails up for safety. Call light placed within reach. Oriented to the unit and the room. Belongings confirmed with transferring RN and patient. Black phone checked with patient and transferring RN. Will continue to monitor and provide care as ordered.
--- NOTE | 2018-12-27 23:45 | NUR ---
NURSE NOTES: Patient has nicotine patch on CAITLYN placed on 1219, 12/27/18.
[2018-12-28 04:00] VITALS: BP 144/89
[2018-12-28] MEDS: NovoLOG Insulin Flexpen SUBQ SCH ×4 (06:24→20:31)
--- NOTE | 2018-12-28 07:15 | NUR ---
NURSE NOTES: HANDOFF RECEIVED FROM MINSU, RN. PATIENT RECEIVED AWAKE AND ALERT AND ABLE TO MAKE NEEDS KNOWN. NO PHYSICAL SIGNS OF DISTRESS. BED IN THE LOW AND LOCKED POSITION WITH CALL LIGHT WITHIN REACH. WILL CONTINUE TO MONITOR PATIENT.
--- NOTE | 2018-12-28 07:30 | Pulmonology Progress Note ---
Assessment/Plan Assessment/Plan ASSESSMENT Lactic acidosis, hypotension, tachycardia,- possible sepsis Tachycardia-resolved Upper respiratory infection Acute kidney injury -resolved Diabetes mellitus Hypertension Hypomagnesemia Chronic R foot ulcer PLAN OF CARE on [place] floor monitor HR, tachy resolved ECHO with pEF 55% IVF, decrease rate monitor renal parameters,lytes Mg replaced 12/27, check Mg in am correct electrolytes further as needed , avoid nephrotoxic empiric abx per ID fup with cx BCX NGTD repeat lactic acid-1.8 BS management with SSI monitor BP and lytes, consider to dc Lisinopril due to initial RASHMI, at this time creat stable, pt was on Lisinopril for 2 yrs DVT prophylaxis added Nicotine patch wound care case discussed and evaluated by supervising physician Subjective Allergies: Coded Allergies: NO KNOWN ALLERGIES (Unverified Allergy, Unknown, 02/08/15) Subjective pulse ox stable on RA no chest pain occas SOB , Objective Last 24 Hour Vital Signs Date Time Temp Pulse Resp B/P (MAP) Pulse Ox O2 Delivery O2 Flow Rate FiO2 12/28/18 04:00 97.5 84 16 144/89 (107) 97 12/27/18 23:40 98.1 78 18 147/92 (110) 95 12/27/18 21:00 Room Air 12/27/18 20:00 97.7 74 18 165/92 (116) 96 12/27/18 20:00 76 12/27/18 16:00 82 12/27/18 16:00 98.2 83 18 145/91 (109) 96 12/27/18 12:00 98.3 77 18 123/66 (85) 96 12/27/18 12:00 84 12/27/18 09:00 Room Air 12/27/18 08:49 144/83 12/27/18 08:00 98.6 93 18 144/83 (103) 95 12/27/18 08:00 95 Intake and Output 12/27/18 12/28/18 19:00 07:00 Intake Total 1500 ml 1250 ml Output Total 2650 ml 2200 ml Balance -1150 ml -950 ml Intake Oral 940 ml 1100 ml IV Total 560 ml 150 ml Output Urine Total 2650 ml 2200 ml Objective General Appearance: no acute distress, A/A/O obese male HEENT: normocephalic, atraumatic, anicteric, mucous membranes moist Respiratory/Chest: lungs clear - with moderate air exchange , no respiratory distress, no accessory muscle use Cardiovascular: normal rate Abdomen: normal bowel sounds, soft, non tender - obese Extremities: +1 edema BLE Skin: other Neurologic/Psychiatric: alert, oriented x 3, responsive Musculoskeletal: normal muscle bulk Microbiology Date/Time Source Procedure Growth Status 12/25/18 17:15 Blood Blood Culture - Preliminary NO GROWTH AFTER 48 HOURS Resulted 12/25/18 17:15 Blood Blood Culture - Preliminary NO GROWTH AFTER 48 HOURS Resulted 12/25/18 19:00 Nasal Nares MRSA Culture - Final NO METHICILLIN RESISTANT STAPH AUREUS... Complete 12/26/18 06:50 Rectal Mucosa Received Laboratory Tests 12/28/18 06:15: White Blood Count [Pending], Red Blood Count [Pending], Hemoglobin [Pending], Hematocrit [Pending], Mean Corpuscular Volume [Pending], Mean Corpuscular Hemoglobin [Pending], Mean Corpuscular Hemoglobin Concent [Pending], Red Cell Distribution Width [Pending], Platelet Count [Pending], Mean Platelet Volume [ Pending], Neutrophils (%) (Auto) [Pending], Lymphocytes (%) (Auto) [Pending], Monocytes (%) (Auto) [Pending], Eosinophils (%) (Auto) [Pending], Basophils (%) (Auto) [Pending], Sodium Level [Pending], Potassium Level [Pending], Chloride Level [Pending], Carbon Dioxide Level [Pending], Blood Urea Nitrogen [Pending], Creatinine [Pending], Estimat Glomerular Filtration Rate [Pending], Glucose Level [Pending], Lactic Acid Level [Pending], Calcium Level [Pending] Current Medications Medications (Trade) Dose Ordered Sig/Azar Route PRN Reason Start Time Stop Time Status Last Admin Dose Admin Acetaminophen (Tylenol) 650 mg Q6HR PRN ORAL Mild Pain/Temp > 100.5 12/28/18 00:00 01/25/19 00:29 12/28/18 05:44 Atorvastatin Calcium (Lipitor) 20 mg BEDTIME ORAL 12/28/18 21:00 01/25/19 20:59 Ceftriaxone Sodium 1 gm/ Dextrose 55 ml @ 110 mls/hr Q24H IVPB 12/28/18 18:00 01/02/19 17:59 Clonidine HCl (Catapres Tab) 0.1 mg EVERY 6 HOURS PRN ORAL For High Blood Pressure 12/28/18 00:00 01/25/19 00:29 Dextrose (Dextrose 50%) 25 ml Q30M PRN IV Hypoglycemia 12/27/18 23:30 01/25/19 11:29 Dextrose (Dextrose 50%) 50 ml Q30M PRN IV Hypoglycemia 12/27/18 23:30 01/25/19 11:29 Divalproex Sodium (Depakote) 250 mg BID ORAL 12/28/18 09:00 01/27/19 08:59 Docusate Sodium (Colace) 100 mg Q12HR ORAL 12/28/18 09:00 01/27/19 08:59 Folic Acid (Folate) 1 mg DAILY ORAL 12/28/18 09:00 01/25/19 08:59 Gabapentin (Neurontin) 300 mg EVERY 8 HOURS ORAL 12/27/18 06:00 01/26/19 05:59 12/28/18 05:36 Heparin Sodium (Porcine) (Heparin 5000 units/ml) 5,000 units EVERY 12 HOURS SUBQ 12/28/18 09:00 01/27/19 08:59 Insulin Aspart (NovoLOG) BEFORE MEALS AND HS SUBQ 12/28/18 06:30 01/25/19 11:29 12/28/18 06:24 Lisinopril (Prinivil) 40 mg DAILY ORAL 12/28/18 09:00 01/25/19 08:59 Nicotine (Nicoderm) 1 patch Q24H TDERMAL 12/28/18 12:00 01/26/19 11:59 Sodium Chloride 1,000 ml @ 75 mls/hr [id number] IV 12/27/18 23:15 01/26/19 12:59 12/28/18 01:15 Maria A Jimenez NP Dec 28, 2018 07:30
--- NOTE | 2018-12-28 07:44 | NUR ---
HAND-OFF: Report given to GAGAN Grant.
[2018-12-28 07:47] LABS: EOSINOPHILS % (AUTO) 3.3 % (0.0-3.0); HEMATOCRIT 35.2 % (42.0-52.0); HEMOGLOBIN 12.2 G/DL (14.2-18.0); LYMPHOCYTES % (AUTO) 34.4 % (20.0-45.0); MEAN CORPUSCULAR VOLUME 87 FL (80-99); MONOCYTES % (AUTO) 7.9 % (1.0-10.0); NEUTROPHILS % (AUTO) 53.3 % (45.0-75.0); PLATELET COUNT 342 K/UL (150-450); RED BLOOD COUNT 4.05 M/UL (4.70-6.10); RED CELL DISTRIBUTION WIDTH 11.8 % (11.6-14.8); WHITE BLOOD COUNT 6.5 K/UL (4.8-10.8)
[2018-12-28 08:00] VITALS: BP 122/73
[2018-12-28 08:07] LABS: ANION GAP 12 mmol/L (5-15); BLOOD UREA NITROGEN 9 mg/dL (7-18); CALCIUM 9.2 MG/DL (8.5-10.1); CARBON DIOXIDE 26 MMOL/L (21-32); CHLORIDE 98 MMOL/L (98-107); CREATININE 0.8 MG/DL (0.55-1.30); POTASSIUM 3.8 MMOL/L (3.5-5.1); SODIUM 136 MMOL/L (136-145)
[2018-12-28] MEDS: Docusate 100mg cap ORAL SCH ×2 (08:53→20:23)
[2018-12-28] MEDS: Lisinopril 20mg tab ORAL SCH (08:53)
[2018-12-28] MEDS: Heparin 5000 units/ml inj SUBQ SCH ×2 (08:55→20:30)
[2018-12-28] MEDS ORDERED: Albuterol/Ipratropium 3ml neb HHN PRN (09:30)
[2018-12-28 12:00] VITALS: BP 141/97
[2018-12-28 16:00] VITALS: BP 131/83
--- NOTE | 2018-12-28 16:53 | Internal Med Progress Note ---
Subjective Date of Service: Dec 28, 2018 Physician Name Misha Luna Attending Physician Jaime Blanca MD Current Medications Medications (Trade) Dose Ordered Sig/Azar Route PRN Reason Start Time Stop Time Status Last Admin Dose Admin Acetaminophen (Tylenol) 650 mg Q6HR PRN ORAL Mild Pain/Temp > 100.5 12/28/18 00:00 01/25/19 00:29 12/28/18 11:37 Albuterol/ Ipratropium (Albuterol/ Ipratropium) 3 ml Q4H PRN HHN Shortness of Breath 12/28/18 09:30 01/02/19 09:29 Atorvastatin Calcium (Lipitor) 20 mg BEDTIME ORAL 12/28/18 21:00 01/25/19 20:59 Ceftriaxone Sodium 1 gm/ Dextrose 55 ml @ 110 mls/hr Q24H IVPB 12/28/18 18:00 01/02/19 17:59 Clonidine HCl (Catapres Tab) 0.1 mg EVERY 6 HOURS PRN ORAL For High Blood Pressure 12/28/18 00:00 01/25/19 00:29 Dextrose (Dextrose 50%) 25 ml Q30M PRN IV Hypoglycemia 12/27/18 23:30 01/25/19 11:29 Dextrose (Dextrose 50%) 50 ml Q30M PRN IV Hypoglycemia 12/27/18 23:30 01/25/19 11:29 Divalproex Sodium (Depakote) 250 mg BID ORAL 12/28/18 09:00 01/27/19 08:59 12/28/18 08:53 Docusate Sodium (Colace) 100 mg Q12HR ORAL 12/28/18 09:00 01/27/19 08:59 12/28/18 08:53 Folic Acid (Folate) 1 mg DAILY ORAL 12/28/18 09:00 01/25/19 08:59 12/28/18 08:53 Gabapentin (Neurontin) 300 mg EVERY 8 HOURS ORAL 12/27/18 06:00 01/26/19 05:59 12/28/18 14:16 Heparin Sodium (Porcine) (Heparin 5000 units/ml) 5,000 units EVERY 12 HOURS SUBQ 12/28/18 09:00 01/27/19 08:59 12/28/18 08:55 Insulin Aspart (NovoLOG) BEFORE MEALS AND HS SUBQ 12/28/18 06:30 01/25/19 11:29 12/28/18 12:21 Lisinopril (Prinivil) 40 mg DAILY ORAL 12/28/18 09:00 01/25/19 08:59 12/28/18 08:53 Nicotine (Nicoderm) 1 patch Q24H TDERMAL 12/28/18 12:00 01/26/19 11:59 12/28/18 11:37 Sodium Chloride 1,000 ml @ 75 mls/hr [id number] IV 12/27/18 23:15 01/26/19 12:59 12/28/18 13:28 Allergies: Coded Allergies: NO KNOWN ALLERGIES (Unverified Allergy, Unknown, 02/08/15) ROS Limited/Unobtainable: No Constitutional: Reports: no symptoms HEENT: Reports: no symptoms Cardiovascular: Reports: no symptoms Respiratory: Reports: shortness of breath Gastrointestinal/Abdominal: Reports: no symptoms Genitourinary: Reports: no symptoms Neurologic/Psychiatric: Reports: no symptoms Subjective 58 YO M admitted with shortness of breath and fever. Now hypotension and presumed sepsis. Cover for Int Med-Dr Blanca Objective Last Vital Signs Date Time Temp Pulse Resp B/P (MAP) Pulse Ox O2 Delivery O2 Flow Rate FiO2 12/28/18 12:00 97.4 80 17 141/97 (112) 98 12/28/18 09:00 Room Air 12/25/18 21:20 2.0 Laboratory Tests Test 12/28/18 06:15 White Blood Count 6.5 K/UL (4.8-10.8) Red Blood Count 4.05 M/UL (4.70-6.10) L Hemoglobin 12.2 G/DL (14.2-18.0) L Hematocrit 35.2 % (42.0-52.0) L Mean Corpuscular Volume 87 FL (80-99) Mean Corpuscular Hemoglobin 30.1 PG (27.0-31.0) Mean Corpuscular Hemoglobin Concent 34.6 G/DL (32.0-36.0) Red Cell Distribution Width 11.8 % (11.6-14.8) Platelet Count 342 K/UL (150-450) Mean Platelet Volume 4.8 FL (6.5-10.1) L Neutrophils (%) (Auto) 53.3 % (45.0-75.0) Lymphocytes (%) (Auto) 34.4 % (20.0-45.0) Monocytes (%) (Auto) 7.9 % (1.0-10.0) Eosinophils (%) (Auto) 3.3 % (0.0-3.0) H Basophils (%) (Auto) 1.0 % (0.0-2.0) Sodium Level 136 MMOL/L (136-145) Potassium Level 3.8 MMOL/L (3.5-5.1) Chloride Level 98 MMOL/L (98-107) Carbon Dioxide Level 26 MMOL/L (21-32) Anion Gap 12 mmol/L (5-15) Blood Urea Nitrogen 9 mg/dL (7-18) Creatinine 0.8 MG/DL (0.55-1.30) Estimat Glomerular Filtration Rate > 60 mL/min (>60) Glucose Level 154 MG/DL (74-106) H Lactic Acid Level 1.80 mmol/L (0.4-2.0) Calcium Level 9.2 MG/DL (8.5-10.1) Microbiology Date/Time Source Procedure Growth Status 12/25/18 17:15 Blood Blood Culture - Preliminary NO GROWTH AFTER 48 HOURS Resulted 12/25/18 17:15 Blood Blood Culture - Preliminary NO GROWTH AFTER 48 HOURS Resulted 12/25/18 19:00 Nasal Nares MRSA Culture - Final NO METHICILLIN RESISTANT STAPH AUREUS... Complete 12/26/18 06:50 Rectum - Final NO CARBAPENEM-RESISTANT ENTEROBACTERI... Complete 12/26/18 06:50 Rectal Mucosa VRE Culture - Final NO VANCOMYCIN RESISTANT ENTEROCOCCUS ... Complete Intake and Output 12/27/18 12/28/18 19:00 07:00 Intake Total 1500 ml 1250 ml Output Total 2650 ml 2200 ml Balance -1150 ml -950 ml Intake Oral 940 ml 1100 ml IV Total 560 ml 150 ml Output Urine Total 2650 ml 2200 ml Objective PHYSICAL EXAMINATION: GENERAL: The patient is awake, responsive, and in no acute distress. HEAD AND NECK: Pupils are reactive to light. Extraocular movements intact. NECK: Supple. No JVD. LUNGS: Good air entry. No wheezing or rales. Decreased air in the bases. HEART: Reveals S1, S2. Tachycardic. No murmur or gallop. ABDOMEN: Soft, nondistended, and nontender. Morbidly obese. Positive bowel sounds. EXTREMITIES: No cyanosis, clubbing, or edema. Right lower extremity has trace edema with old scaly rashes due to the prior cellulitis. NEUROLOGIC: Cranial nerves II through XII grossly intact. Motor is 5/5 in all extremities. Gait is a not assessed due to the patient's status. RECTAL/GENITOURINARY: Refused and deferred. PSYCHIATRIC: Mood and affect is intact. Assessment/Plan Assessment/Plan ASSESSMENT: 1. Severe dehydration with acute kidney injury with acute tubular necrosis. 2. Diabetes type 2. 3. Hypertension, presently hypotensive. 4. Morbid obesity. 5. Dyslipidemia. 6. Tachycardia. 7. Anemia. 8. Upper respiratory infection. PLAN: 1. Admit the patient to monitored unit. 2. We will follow up laboratory and cultures. 3. antibiotic = Rocephin. 4. Aggressive IV hydration. 5. DVT prophylaxis with heparin subcutaneous. 6. Code status, Full Code. 7. We will follow up with the ID consultation as well as Pulmonary consultation with Dr. Abreu. We will monitor blood glucose level closely. 8. If the patient's status improves, consider transfer to medical floor. Misha Luna MD Dec 28, 2018 16:53
[2018-12-28] MEDS ORDERED: cefTRIAXone 1 GM in D5W 55 ML IVPB SCH (18:00)
--- NOTE | 2018-12-28 19:12 | NUR ---
HAND-OFF: Report given to GAGAN SHARIF.
--- NOTE | 2018-12-28 19:17 | NUR ---
NURSE NOTES: Received report from GAGAN Grant. Patient awake and verbally responsive to let his needs known. Breathing unlabored without distress on room air. Received pain medication from the previous shift. Will continue to monitor. Otherwise, no significant discomfort verbalized. IV intact and patent on right hand. Bed placed at the lowest with alarm, brake, and siderails up for safety. Call light placed within reach. Will continue to monitor and provide care as ordered.
[2018-12-28 20:00] VITALS: BP 149/97
[2018-12-28] MEDS ORDERED: Atorvastatin 20mg tab ORAL SCH (21:00)
[2018-12-29] VITALS: BP 134/90
[2018-12-29 04:00] VITALS: BP 148/97
--- NOTE | 2018-12-29 05:45 | NUR ---
NURSE NOTES: Changed IV dressing on right hand. IV intact, clean, dry, and patent.
[2018-12-29] MEDS: NovoLOG Insulin Flexpen SUBQ SCH ×2 (06:13→12:08)
[2018-12-29 07:30] LABS: EOSINOPHILS % (AUTO) 3.7 % (0.0-3.0); HEMATOCRIT 36.7 % (42.0-52.0); HEMOGLOBIN 12.8 G/DL (14.2-18.0); LYMPHOCYTES % (AUTO) 37.1 % (20.0-45.0); MEAN CORPUSCULAR VOLUME 86 FL (80-99); MONOCYTES % (AUTO) 6.6 % (1.0-10.0); NEUTROPHILS % (AUTO) 51.6 % (45.0-75.0); PLATELET COUNT 346 K/UL (150-450); RED BLOOD COUNT 4.28 M/UL (4.70-6.10); RED CELL DISTRIBUTION WIDTH 11.4 % (11.6-14.8); WHITE BLOOD COUNT 6.9 K/UL (4.8-10.8)
--- NOTE | 2018-12-29 07:48 | NUR ---
HAND-OFF: Report given to GAGAN Grant.
--- NOTE | 2018-12-29 07:53 | NUR ---
NURSE NOTES: HANDOFF RECEIVED FROM MINSU, RN. PATIENT AWAKE ALERT AND STABLE WITH NO PHYSICAL SIGNS OF DISTRESS. PATIENT IS ABLE TO MAKE NEEDS KNOWN. BED IN THE LOW AND LOCKED POSITION WITH CALL LIGHT WITHIN REACH. IV SITE IS CLEAN DRY AND INTACT, RUNNING PRESCRIBED FLUIDS. WILL CONTINUE TO MONITOR PATIENT.
[2018-12-29 07:54] LABS: ANION GAP 11 mmol/L (5-15); BLOOD UREA NITROGEN 11 mg/dL (7-18); CALCIUM 9.1 MG/DL (8.5-10.1); CARBON DIOXIDE 23 MMOL/L (21-32); CHLORIDE 98 MMOL/L (98-107); CREATININE 0.8 MG/DL (0.55-1.30); POTASSIUM 3.7 MMOL/L (3.5-5.1); SODIUM 132 MMOL/L (136-145)
[2018-12-29 08:00] VITALS: BP 140/92
--- NOTE | 2018-12-29 08:00 | NUR ---
NURSE NOTES: FLOOR IS SHORT ON COMPUTERS. MANAGED TO FIND A COMPUTER THAT HAS ACCESS TO THE EMAR. THE COMPUTER BEING USED DOES NOT HAVE A FUNCTIONAL SCANNER TO SCAN THE PATIENTS ID BRACELET AND MEDICATIONS. VERIFIED PATIENT USING 2 IDENTIFIERS AND MANUALLY CHECKED THE MEDICATIONS TO THE EMAR.
[2018-12-29] MEDS: Lisinopril 20mg tab ORAL SCH (08:28)
[2018-12-29] MEDS: Docusate 100mg cap ORAL SCH (08:28)
[2018-12-29] MEDS: Heparin 5000 units/ml inj SUBQ SCH (08:32)
--- NOTE | 2018-12-29 09:41 | NUR ---
NURSE NOTES: LEFT A MESSAGE FOR DR LOFTON TO UPDATE ON PATIENTS SODIUM LEVEL OF 132 AND MAGNESIUM 1.3
--- NOTE | 2018-12-29 10:45 | NUR ---
CASE MANAGEMENT:REVIEW 58 YR OLD MALE BIBA FROM [facility] CC; FEVER AND TACHYCARDIA T~100.6 HR~108 SI: SEPSIS. FEVER. RASHMI. HYPOTENSION 98.3 108 28 84/50 99% ON 2L/NC WBC+12.6 NA-132 CR+2.1 GLUCOSE+292 IS: 1L NS BOLUS X2 IV ROCEPHIN IV AZITHROMYCIN CHEST XRAY BLOOD CX : TO TELEMETRY UNIT INTERQUAL CRITERIA MET 12/29/18 SI: HYPOTENSION. POSSIBLE SEPSIS. RASHMI 98.0 78 18 140/92 99% ON RA H/H-12.8/36.7 GLUCOSE+151 MAG-1.3 IS:IV ROCEPHIN Q24 DEPAKOTE PO BID HEPARIN SQ Q12 LISINOPRIL PO QD : MED/SURG STATUS 4 EAST DCP: FROM [facility]
--- NOTE | 2018-12-29 11:00 | NUR ---
NURSE NOTES: DID NOT HEAR BACK FROM [facility] REGARDING PATIENTS LABS. CONTACTED DR PEREZ TO UPDATE ON PATIENT'S LAB VALUES.
[2018-12-29 12:00] VITALS: BP 131/89
--- NOTE | 2018-12-29 12:05 | NUR ---
NURSE NOTES: UPDATED DR PEREZ ON PATIENTS LAB VALUES PERTAINING TO SODIUM AND MAGNESIUM LEVELS DURING HIS ROUNDS.
--- NOTE | 2018-12-29 12:28 | Pulmonology Progress Note ---
Assessment/Plan Problems: (1) URI (upper respiratory infection) (2) Tachycardia (3) HTN (hypertension) (4) Diabetes Assessment/Plan improving all reviewed sliding scale diabetic diet BP controlled. Subjective ROS Limited/Unobtainable: Yes Constitutional: Reports: no symptoms HEENT: Repors: no symptoms Respiratory: Reports: no symptoms Allergies: Coded Allergies: NO KNOWN ALLERGIES (Unverified Allergy, Unknown, 02/08/15) Objective Last 24 Hour Vital Signs Date Time Temp Pulse Resp B/P (MAP) Pulse Ox O2 Delivery O2 Flow Rate FiO2 12/29/18 12:00 98.6 76 18 131/89 (103) 97 12/29/18 09:00 Room Air 12/29/18 08:28 140/92 12/29/18 08:00 98.0 78 18 140/92 (108) 99 12/29/18 04:00 97.8 94 18 148/97 (114) 98 12/29/18 00:00 98.5 64 19 134/90 (105) 96 12/28/18 21:00 Room Air 12/28/18 20:00 97.0 69 19 149/97 (114) 95 12/28/18 16:00 98.6 69 18 131/83 (99) 99 Intake and Output 12/28/18 12/29/18 19:00 07:00 Intake Total 1200 ml 2175 ml Output Total 1800 ml Balance 1200 ml 375 ml Intake Oral 1500 ml IV Total 675 ml Other 1200 ml Output Urine Total 1800 ml General Appearance: WD/WN HEENT: normocephalic, atraumatic Cardiovascular: normal peripheral pulses, normal rate Abdomen: normal bowel sounds, no organomegaly Genitourinary: normal external genitalia Extremities: no clubbing Skin: no rash Laboratory Tests 12/29/18 05:44: White Blood Count 6.9, Red Blood Count 4.28L, Hemoglobin 12.8L, Hematocrit 36.7L , Mean Corpuscular Volume 86, Mean Corpuscular Hemoglobin 30.0, Mean Corpuscular Hemoglobin Concent 34.9, Red Cell Distribution Width 11.4L, Platelet Count 346, Mean Platelet Volume 4.6L, Neutrophils (%) (Auto) 51.6, Lymphocytes (%) (Auto) 37.1, Monocytes (%) (Auto) 6.6, Eosinophils (%) (Auto) 3.7H, Basophils (%) (Auto) 1.0, Sodium Level 132L, Potassium Level 3.7, Chloride Level 98, Carbon Dioxide Level 23, Anion Gap 11, Blood Urea Nitrogen 11 , Creatinine 0.8, Estimat Glomerular Filtration Rate > 60, Glucose Level 151H, Calcium Level 9.1, Magnesium Level 1.3L Current Medications Medications (Trade) Dose Ordered Sig/Azar Route PRN Reason Start Time Stop Time Status Last Admin Dose Admin Acetaminophen (Tylenol) 650 mg Q6HR PRN ORAL Mild Pain/Temp > 100.5 12/28/18 00:00 01/25/19 00:29 12/29/18 04:16 Albuterol/ Ipratropium (Albuterol/ Ipratropium) 3 ml Q4H PRN HHN Shortness of Breath 12/28/18 09:30 01/02/19 09:29 Atorvastatin Calcium (Lipitor) 20 mg BEDTIME ORAL 12/28/18 21:00 01/25/19 20:59 12/28/18 20:23 Ceftriaxone Sodium 1 gm/ Dextrose 55 ml @ 110 mls/hr Q24H IVPB 12/28/18 18:00 01/02/19 17:59 12/28/18 17:30 Clonidine HCl (Catapres Tab) 0.1 mg EVERY 6 HOURS PRN ORAL For High Blood Pressure 12/28/18 00:00 01/25/19 00:29 Dextrose (Dextrose 50%) 25 ml Q30M PRN IV Hypoglycemia 12/27/18 23:30 01/25/19 11:29 Dextrose (Dextrose 50%) 50 ml Q30M PRN IV Hypoglycemia 12/27/18 23:30 01/25/19 11:29 Divalproex Sodium (Depakote) 250 mg BID ORAL 12/28/18 09:00 01/27/19 08:59 12/29/18 08:29 Docusate Sodium (Colace) 100 mg Q12HR ORAL 12/28/18 09:00 01/27/19 08:59 12/29/18 08:28 Folic Acid (Folate) 1 mg DAILY ORAL 12/28/18 09:00 01/25/19 08:59 12/29/18 08:29 Gabapentin (Neurontin) 300 mg EVERY 8 HOURS ORAL 12/27/18 06:00 01/26/19 05:59 12/29/18 06:10 Heparin Sodium (Porcine) (Heparin 5000 units/ml) 5,000 units EVERY 12 HOURS SUBQ 12/28/18 09:00 01/27/19 08:59 12/29/18 08:32 Insulin Aspart (NovoLOG) BEFORE MEALS AND HS SUBQ 12/28/18 06:30 01/25/19 11:29 12/29/18 12:08 Lisinopril (Prinivil) 40 mg DAILY ORAL 12/28/18 09:00 01/25/19 08:59 12/29/18 08:28 Nicotine (Nicoderm) 1 patch Q24H TDERMAL 12/28/18 12:00 01/26/19 11:59 12/29/18 12:24 Sodium Chloride 1,000 ml @ 75 mls/hr [id number] IV 12/27/18 23:15 01/26/19 12:59 12/29/18 02:44 Hank Abreu MD Dec 29, 2018 12:28
--- NOTE | 2018-12-29 13:58 | Internal Med Progress Note ---
Subjective Date of Service: Dec 29, 2018 Physician Name Misha Luna Attending Physician Jaime Blanca MD Current Medications Medications (Trade) Dose Ordered Sig/Azar Route PRN Reason Start Time Stop Time Status Last Admin Dose Admin Acetaminophen (Tylenol) 650 mg Q6HR PRN ORAL Mild Pain/Temp > 100.5 12/28/18 00:00 01/25/19 00:29 12/29/18 13:32 Albuterol/ Ipratropium (Albuterol/ Ipratropium) 3 ml Q4H PRN HHN Shortness of Breath 12/28/18 09:30 01/02/19 09:29 Atorvastatin Calcium (Lipitor) 20 mg BEDTIME ORAL 12/28/18 21:00 01/25/19 20:59 12/28/18 20:23 Ceftriaxone Sodium 1 gm/ Dextrose 55 ml @ 110 mls/hr Q24H IVPB 12/28/18 18:00 01/02/19 17:59 12/28/18 17:30 Clonidine HCl (Catapres Tab) 0.1 mg EVERY 6 HOURS PRN ORAL For High Blood Pressure 12/28/18 00:00 01/25/19 00:29 Dextrose (Dextrose 50%) 25 ml Q30M PRN IV Hypoglycemia 12/27/18 23:30 01/25/19 11:29 Dextrose (Dextrose 50%) 50 ml Q30M PRN IV Hypoglycemia 12/27/18 23:30 01/25/19 11:29 Divalproex Sodium (Depakote) 250 mg BID ORAL 12/28/18 09:00 01/27/19 08:59 12/29/18 08:29 Docusate Sodium (Colace) 100 mg Q12HR ORAL 12/28/18 09:00 01/27/19 08:59 12/29/18 08:28 Folic Acid (Folate) 1 mg DAILY ORAL 12/28/18 09:00 01/25/19 08:59 12/29/18 08:29 Gabapentin (Neurontin) 300 mg EVERY 8 HOURS ORAL 12/27/18 06:00 01/26/19 05:59 12/29/18 13:32 Heparin Sodium (Porcine) (Heparin 5000 units/ml) 5,000 units EVERY 12 HOURS SUBQ 12/28/18 09:00 01/27/19 08:59 12/29/18 08:32 Insulin Aspart (NovoLOG) BEFORE MEALS AND HS SUBQ 12/28/18 06:30 01/25/19 11:29 12/29/18 12:08 Lisinopril (Prinivil) 40 mg DAILY ORAL 12/28/18 09:00 01/25/19 08:59 12/29/18 08:28 Nicotine (Nicoderm) 1 patch Q24H TDERMAL 12/28/18 12:00 01/26/19 11:59 12/29/18 12:24 Sodium Chloride 1,000 ml @ 75 mls/hr [id number] IV 12/27/18 23:15 01/26/19 12:59 12/29/18 02:44 Allergies: Coded Allergies: NO KNOWN ALLERGIES (Unverified Allergy, Unknown, 02/08/15) ROS Limited/Unobtainable: No Constitutional: Reports: no symptoms HEENT: Reports: no symptoms Cardiovascular: Reports: no symptoms Respiratory: Reports: shortness of breath Gastrointestinal/Abdominal: Reports: no symptoms Genitourinary: Reports: no symptoms Neurologic/Psychiatric: Reports: no symptoms Subjective 58 YO M admitted with shortness of breath and fever. Now hypotension and presumed sepsis. Cover for Int [facility]-Dr Blanca Objective Last Vital Signs Date Time Temp Pulse Resp B/P (MAP) Pulse Ox O2 Delivery O2 Flow Rate FiO2 12/29/18 12:00 98.6 76 18 131/89 (103) 97 12/29/18 09:00 Room Air 12/25/18 21:20 2.0 Laboratory Tests Test 12/29/18 05:44 White Blood Count 6.9 K/UL (4.8-10.8) Red Blood Count 4.28 M/UL (4.70-6.10) L Hemoglobin 12.8 G/DL (14.2-18.0) L Hematocrit 36.7 % (42.0-52.0) L Mean Corpuscular Volume 86 FL (80-99) Mean Corpuscular Hemoglobin 30.0 PG (27.0-31.0) Mean Corpuscular Hemoglobin Concent 34.9 G/DL (32.0-36.0) Red Cell Distribution Width 11.4 % (11.6-14.8) L Platelet Count 346 K/UL (150-450) Mean Platelet Volume 4.6 FL (6.5-10.1) L Neutrophils (%) (Auto) 51.6 % (45.0-75.0) Lymphocytes (%) (Auto) 37.1 % (20.0-45.0) Monocytes (%) (Auto) 6.6 % (1.0-10.0) Eosinophils (%) (Auto) 3.7 % (0.0-3.0) H Basophils (%) (Auto) 1.0 % (0.0-2.0) Sodium Level 132 MMOL/L (136-145) L Potassium Level 3.7 MMOL/L (3.5-5.1) Chloride Level 98 MMOL/L (98-107) Carbon Dioxide Level 23 MMOL/L (21-32) Anion Gap 11 mmol/L (5-15) Blood Urea Nitrogen 11 mg/dL (7-18) Creatinine 0.8 MG/DL (0.55-1.30) Estimat Glomerular Filtration Rate > 60 mL/min (>60) Glucose Level 151 MG/DL (74-106) H Calcium Level 9.1 MG/DL (8.5-10.1) Magnesium Level 1.3 MG/DL (1.8-2.4) L Intake and Output 12/28/18 12/29/18 19:00 07:00 Intake Total 1200 ml 2175 ml Output Total 1800 ml Balance 1200 ml 375 ml Intake Oral 1500 ml IV Total 675 ml Other 1200 ml Output Urine Total 1800 ml Objective PHYSICAL EXAMINATION: GENERAL: The patient is awake, responsive, and in no acute distress. HEAD AND NECK: Pupils are reactive to light. Extraocular movements intact. NECK: Supple. No JVD. LUNGS: Good air entry. No wheezing or rales. Decreased air in the bases. HEART: Reveals S1, S2. Tachycardic. No murmur or gallop. ABDOMEN: Soft, nondistended, and nontender. Morbidly obese. Positive bowel sounds. EXTREMITIES: No cyanosis, clubbing, or edema. Right lower extremity has trace edema with old scaly rashes due to the prior cellulitis. NEUROLOGIC: Cranial nerves II through XII grossly intact. Motor is 5/5 in all extremities. Gait is a not assessed due to the patient's status. RECTAL/GENITOURINARY: Refused and deferred. PSYCHIATRIC: Mood and affect is intact. Assessment/Plan Assessment/Plan ASSESSMENT: 1. Severe dehydration with acute kidney injury with acute tubular necrosis. 2. Diabetes type 2. 3. Hypertension, presently hypotensive. 4. Morbid obesity. 5. Dyslipidemia. 6. Tachycardia. 7. Anemia. 8. Upper respiratory infection. PLAN: 1. Admit the patient to monitored unit. 2. We will follow up laboratory and cultures. 3. antibiotic = Rocephin. 4. Aggressive IV hydration. 5. DVT prophylaxis with heparin subcutaneous. 6. Code status, Full Code. 7. We will follow up with the ID consultation as well as Pulmonary consultation with Dr. Abreu. We will monitor blood glucose level closely. 8. If the patient's status improves, consider transfer to medical floor. Misha Luna MD Dec 29, 2018 13:58
--- NOTE | 2018-12-29 15:20 | NUR ---
NURSE NOTES: PATIENT LEFT STABLE VIA EMS, PATIENT ALERT AND ORIENTED. BELONGINGS LEFT WITH PATIENT, BELONGINGS AND DISCHARGE PAPERWORK SIGNED. IV REMOVED, NO BLEEDING OR HEMATOMA NOTED. ADVISED PATIENT TO FOLLOW UP WITH PRIMARY CARE PHYSICIAN. ALSO TOLD PATIENT TO SEEK MEDICAL ATTENTION FOR RECURRENCE OF SYMPTOMS.
--- NOTE | 2018-12-30 16:17 | Cardiology Report ---
APPROVED REPORT EXAM: Two-dimensional and M-mode echocardiogram with Doppler and color Doppler. INDICATION Left ventricular function M-Mode DIMENSIONS IVSd1.3 (0.7-1.1cm)Left Atrium (MM)3.9 (1.6-4.0cm) LVDd5.6 (3.5-5.6cm)Aortic Root3.3 (2.0-3.7cm) PWd1.0 (0.7-1.1cm)Aortic Cusp Exc.2.0 (1.5-2.0cm) LVDs3.6 (2.5-4.0cm) PWs1.6 cm Technically difficult study due to poor parasternal acoustical windows. Study quality precludes accurate assessment of regional wall motion. Grossly Normal left ventricular chamber size, systolic function and wall motion to arden extent visualized. Left ventricular ejection fraction estimated to be 60-65 %. Mild left ventricular hypertrophy. Anterior Echo-free space, may be due to pericardial fat or effusion. Mild bi-atrial enlargement. Right ventricular chamber size is within normal limits. Focal aortic valve sclerosis with adequate cusp excursion. Thickened mitral valve leaflets with normal excursion. Mitral annulus and aortic root calcification. Pulmonic valve not well visualized. Normal tricuspid valve structure. Subcostal views not obtainable, IVC not seen A color flow and spectral Doppler study was performed and revealed: No aortic insufficiency. No mitral regurgitation. Mitral diastolic velocities suggest mild left ventricular diastolic dysfunction (Grade I). Mild tricuspid regurgitation. Tricuspid systolic velocities suggests peak right ventricular systolic pressure of at least 29 mmHg. No pulmonic regurgitation present.
--- NOTE | 2018-12-30 17:05 | Cardiology Report ---
APPROVED REPORT EKG Measurement Heart [id number] Sinus tachycardia Possible Anterior infarct, age undetermined Abnormal ECG
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
== END 2018-12-29 15:16 | disposition home or self-care (01) | DRG 640 ==
LOC: EDBD 16:20 → EMR 17:31 → 2E 18:40 → EDBEDREQ 20:26 → 4E 12-27 23:41
DX: E86.0 Dehydration (principal); N17.0 Acute kidney failure with tubular necrosis; E66.01 Morbid (severe) obesity due to excess calories; F17.200 Nicotine dependence, unspecified, uncomplicated; I10 Essential (primary) hypertension; E78.5 Hyperlipidemia, unspecified; D64.9 Anemia, unspecified; J06.9 Acute upper respiratory infection, unspecified; E87.2 Acidosis; I95.9 Hypotension, unspecified; R00.0 Tachycardia, unspecified; E11.9 Type 2 diabetes mellitus without complications; E83.42 Hypomagnesemia; L97.519 Non-pressure chronic ulcer of other part of right foot with unspecified severity; Z79.4 Long term (current) use of insulin
CPT/HCPCS: 36415; 71045; 80048; 80053; 80164; 81003; 82550; 82553; 82962; 83605; 83735; 84100; 84484; 85025; 85651; 86140; 87040; 87081; 93005; 93306; 96361; 96365; 96368; 99291; J1815; J7030